=== PATIENT | male | born 1955 | race Caucasian/White ===

== ENCOUNTER → 2017-01-10 10:01 | Outpatient (CLI) | payer MEDICAID | END | disposition home or self-care (01) | LOC: D.CT 10:01 | DX: R93.3 Abnormal findings on diagnostic imaging of other parts of digestive tract (principal) ==

== ENCOUNTER → 2017-04-27 09:34 | Outpatient (CLI) | payer MEDICAID ==
[2017-04-27 10:47] LABS: ALBUMIN 4.2 g/dL (3.4-5.0); BILIRUBIN - DIRECT 0.22 mg/dL (0.00-0.30); BILIRUBIN - INDIRECT 0.6 mg/dL (0.00-1.00); BILIRUBIN - TOTAL 0.82 mg/dL (0.2-1.3); PROTEIN - SERUM 7.2 g/dL (6.4-8.2)
== END | disposition home or self-care (01) ==
LOC: D.US 09:30
PROVIDERS: Internal Medicine Gastroenterology
DX: K76.0 Fatty (change of) liver, not elsewhere classified (principal); R74.8 Abnormal levels of other serum enzymes

== ENCOUNTER → 2017-05-12 08:40 | Outpatient (CLI) | payer MEDICAID ==
[2017-05-12 09:23] LABS: BASOPHILS 0.4 % (0-2); EOSINOPHILS 4.7 % (0-7); HEMATOCRIT 47.7 % (42.0-54.0); HEMOGLOBIN 16.1 g/dL (13.5-17.5); IMMATURE GRANULOCYTES 0.4 % (0-5); LYMPHOCYTES 20.8 % (15-50); MCH 28.8 pg (26.0-34.0); MCHC 33.8 g/dL (31.0-37.0); MCV 85.2 fL (80.0-100.0); MONOCYTES 9.2 % (2-11); NEUTROPHILS 64.5 % (40-80); PLATELET COUNT 201 10x3/uL (130-400); RDW 13.2 % (11.5-14.5); WBC 7.1 10x3/uL (4.8-10.8)
[2017-05-12 09:36] LABS: APTT 31.8 SECONDS (22.8-39.4)
[2017-05-12 09:43] LABS: % SATURATION 48 % (15-55); IRON 141 ug/dl (35-150); TOTAL IRON BIND CAPACITY 293 ug/dl (260-445); UNSAT IRON BIND CAPACITY 152 ug/dl (150-375)
[2017-05-12 09:54] LABS: ALBUMIN 4.2 g/dL (3.4-5.0); ANION GAP 13.3 mmol/L (8-16); BILIRUBIN - DIRECT 0.17 mg/dL (0.00-0.30); BILIRUBIN - INDIRECT 0.91 mg/dL (0.00-1.00); BILIRUBIN - TOTAL 1.08 mg/dL (0.2-1.3); CALCIUM 8.9 mg/dL (8.5-10.1); CARBON DIOXIDE 27.6 mmol/L (21.0-32.0); CREATININE - SERUM 1.1 mg/dL (0.6-1.3); LDL-HDL RATIO 1.4 ratio (1.5-3.5); POTASSIUM - SERUM 3.9 mmol/L (3.5-5.1); PROTEIN - SERUM 7.6 g/dL (6.4-8.2)
[2017-05-12 10:08] LABS: INR 1.15 (0.85-1.17); PROTIME 14.2 SECONDS (11.6-15.0)
[2017-05-13 05:16] LABS: ALPHA FETOPROTEIN -(TUMOR MRK) 4.5 ng/mL (0.0-8.3)
[2017-05-13 07:22] LABS: FOLATE (FOLIC ACID) - SERUM >20.0 ng/mL (>3.0)
[2017-05-13 12:11] LABS: HEPATITIS C ANTIBODY <0.1 (0.0-0.9)
[2017-05-14 13:08] LABS: HAPTOGLOBIN 165 mg/dL (34-200)
[2017-05-15 15:20] LABS: MITOCHONDRIAL ANTIBODY 4.2 Units (0.0-20.0); SMOOTH MUSCLE ABS (ACTIN) 7 Units (0-19)
[2017-05-16 07:23] LABS: ANA REFLEX - DIRECT Negative (Negative)
== END | disposition home or self-care (01) ==
LOC: D.LAB 08:40
PROVIDERS: Internal Medicine Gastroenterology
DX: R74.8 Abnormal levels of other serum enzymes (principal); K76.0 Fatty (change of) liver, not elsewhere classified; R12 Heartburn

== ENCOUNTER → 2017-10-25 08:11 | Outpatient (CLI) | payer MEDICAID ==
[2017-10-25 08:42] LABS: BILIRUBIN - DIRECT 0.2 mg/dL (0.00-0.30); BILIRUBIN - INDIRECT 0.63 mg/dL (0.00-1.00); BILIRUBIN - TOTAL 0.83 mg/dL (0.2-1.3); PROTEIN - SERUM 7.8 g/dL (6.4-8.2)
== END | disposition home or self-care (01) ==
LOC: D.US 08:11
PROVIDERS: Internal Medicine Gastroenterology
DX: K76.0 Fatty (change of) liver, not elsewhere classified (principal); R94.5 Abnormal results of liver function studies

== ENCOUNTER → 2018-04-27 09:28 | Outpatient (CLI) | payer MEDICARE, OTHER ==
[2018-05-10 12:56] LABS: ALBUMIN 4.1 g/dL (3.4-5.0); BILIRUBIN - DIRECT 0.29 mg/dL (0.00-0.30); BILIRUBIN - INDIRECT 0.8 mg/dL (0.00-1.00); BILIRUBIN - TOTAL 1.09 mg/dL (0.2-1.3); PROTEIN - SERUM 7.6 g/dL (6.4-8.2)
== END | disposition home or self-care (01) ==
LOC: D.US 09:28
PROVIDERS: Internal Medicine Gastroenterology
DX: K76.0 Fatty (change of) liver, not elsewhere classified (principal)

== ENCOUNTER 2018-10-03 16:06 | Observation (INO) | payer MEDICARE, OTHER ==
[~2018-10-03] VITALS: Ht 190.5 cm; Wt 93.2 kg
--- NOTE | ~2018-10-03 | HEMODYNAMI ---
PATIENT:QUIRINO LOPEZ MEDICAL RECORD: [id number] : 51 LOCATION:[facility] D.2115 ADMISSION DATE: 10/03/18 Generatedon:10/04/201812:58 Patient name: QUIRINO LOPEZ Patient #: [id number] SSN: : 1955 Date of study: 10/04/2018 Page: Of Hemodynamic Procedure Report Patient Data Patient Demographics Procedure consent was obtained First Name: QUIRINO Gender: Male Last Name: JESSICA : 1955 Middle Initial: ARSENIO Age: 63 year(s) Patient #: [id number] Race: Unknown Additional ID: [id number] Contact details Address: [address] [place] [address] State: [place] City: [place] Zip code: [address] Past Medical History Allergies Allergen Reaction Date Comments Reported Other allergy 10/04/2018 MONAE DANIELS Admission Admission Data Admission Date: 10/03/2018 Admission Time: 18:21 Room #: .[facility]5 Height (in.): 75 BSA: 2.22 (m2) Height (cm.): 190.5 BMI: 25.63 (kg/m2) Weight (lbs.): 205.03 Weight (kg.): 93 Lab Results Lab Result Date: 10/04/2018 Lab Result Time: 0:00 Biochemistry Name Units Result Min Max BUN mg/dl 23 --(----)-* 7 18 Creatinine mg/dl 1 --(--*-)-- 0.6 1.3 eGFR ml/min 79.47418 *-(----)-- 90 120 NONAFRICAN CBC Name Units Result Min Max Hematocrit % 46.8 --(-*--)-- 42 54 Hemoglobin g/dl 16.1 --(--*-)-- 13.5 17.5 Procedure Procedure Types Cath Procedure Diagnostic Procedure LHC LHC w/Coronaries Procedure Description Procedure Date Procedure Date: 10/04/2018 Procedure Start Time: 12:42 Procedure End Time: 12:56 Procedure Staff Name Function Juan Stein MD Performing Physician Shiloh Pedraza RT Monitor Jonny Wylie RT Scrub Sanjana Sidhu RT Scrub Emma Rivas RN Nurse Procedure Data Cath Procedure Fluoroscopy Diagnostic fluoroscopy Total fluoroscopy Time: 3.2 time: 3.2 min min Diagnostic fluoroscopy Total fluoroscopy dose: 605 dose: 605 mGy mGy Contrast Material Contrast Material Type Amount (ml) Isovue 300 81 Entry Location Entry Primary Successful Side Size Upsize Upsize Entry Closure Succes sful Closure Location (Fr) 1 (Fr) 2 (Fr) Remarks Device Remarks Femoral Right 5 Fr Exoseal artery Estimated blood loss: 5 ml Diagnostic catheters Device Type Used For End Catheter Placement MULTIPACK Pigtail 5 Fr Procedure catheter MULTIPACK JL 4.0 5Fr Procedure catheter DIAGNOSTIC JL 6 5Fr Procedure catheter ([id number]) MULTIPACK 3DRC 5Fr Procedure catheter DIAGNOSTIC AR2 MOD 5 Fr Procedure catheter ([id number]) DIAGNOSTIC AL2 5Fr Procedure catheter ([id number]) Procedure Complications No complications Procedure Medications Medication Administration Route Dosage 0.9% NaCl I.V. 100 ml/hr Oxygen etCO2 Nasal cannula 2 l/min Lidocaine 2% added to field 20 Heparin Flush Bag added to field 2 bags (1000units/500ml NS) Versed I.V. 2 mg Fentanyl I.V. 50 mcg Hemodynamics Rest BSA: 2.22 (m2) O2 Consumption: Estimated: 249.84 (ml/min) O2 Consumption indexed : Estimated:112.54 (ml/min/m) Heart Rate: 59 (bpm) Snapshots Pre Cath Intra NCS Post Cath Vital Signs Time Heart Resp SPO2 etCO2 NIBP (mmHg) Rhythm Pain Sedation Rate (ipm) (%) (mmHg) Status Level (bpm) 12:26:18 56 19 97 0 148/58(110) SB 0 (11) 10(A) , No pain 12:30:40 59 20 97 0 136/62(107) SB 0 (11) 10(A) , No pain 12:34:58 60 15 96 0 137/63(106) NSR 0 (11) 10(A) , No pain 12:39:19 57 15 98 11.2 148/61(116) SB 0 (11) 10(A) , No pain 12:43:41 60 11 97 8.9 160/67(115) NSR 0 (11) 10(A) , No pain 12:48:09 62 14 98 12.7 150/64(100) NSR 0 (11) 10(A) , No pain 12:52:31 61 13 97 21.7 144/63(109) NSR 0 (11) 10(A) , No pain 12:56:56 61 12 95 32.2 151/59(117) NSR 0 (11) 10(A) , No pain Medications Time Medication Route Dose Verified Delivered Reason Notes Eff ectiveness by by 12:41:49 Versed I.V. 2 mg Juan Emma for Emil Rivas sedation RN 12:41:58 Fentanyl I.V. 50 Juan Emma for mcg Emil Rivas sedation RN 12:44:14 0.9% NaCl I.V. 100 Juan Emma used for ml/hr Emil Rivas loader technician 12:44:21 Oxygen etCO2 2 Juan Emma used for Nasal l/min Emil Rivas procedure cannula RN 12:44:26 Lidocaine 2% added 20ml Juan Juan for local to vial Emil Stein MD anesthetic field 12:44:32 Heparin Flush added 2 Juan Juan used for Bag to bags Emil Stein MD procedure (1000units/500ml field NS) Procedure Log Time Note 12:08:27 Signed procedure consent form obtained from patient. 12:08:29 Diagnostic Cath status Urgent 12:08:30 Time tracking: Regular hours (M-F 7:00 - 5:00) 12:08:34 Plan of Care:Hemodynamics will remain stable., Cardiac rhythm will remain stable., Comfort level will be maintained., Respiratory function will remain adequate., Patient/ family verbilizes understanding of procedure., Procedure tolerated without complication., Recovers from procedure without complications.. 12:08:59 Patient allergic to Other allergyASACOL, TRICOR 12:09:49 Jonny PHELAN(R) sent for patient. Start room use. 12:10:58 Patient Weight : 205.03 lbs 12:11:01 Patient Height : 75 inches 12:12:39 Lab Result : BUN 23 mg/dl 12:12:39 Lab Result : eGFR NONAFRICAN 79.58146 ml/min 12:12:39 Lab Result : Creatinine 1 mg/dl 12:12:39 Lab Result : Hematocrit 46.8 % 12:12:39 Lab Result : Hemoglobin 16.1 g/dl 12:18:29 Patient received from Med II to CCL 1 Alert and oriented. Tansferred to table in Supine position. 12:18:30 Warm blankets applied, and irma hugger turned on for patient comfort. 12:18:31 Correct patient and procedure confirmed by team. 12:18:32 ECG and BP/O2 sat monitors applied to patient. 12:25:04 Vital chart was started 12:32:57 Baseline sample Acquired. 12:33:04 Rhythm: sinus rhythm 12:33:05 Full Disclosure recording started 12:33:06 Pre-procedure instructions explained to patient. 12:33:07 Pre-op teaching completed and patient verbalized understanding. 12:33:09 Family in patients room. 12:33:11 Patient NPO since Midnight. 12:33:13 Is patient on blood thinner?No 12:33:15 Patient diabetic? No. 12:33:18 Previous problem with sedation/anesthesia? No ? 12:33:19 Snore? No 12:33:41 Sleep apnea? No 12:33:43 Deviated septum? No 12:33:44 Opens mouth fully? Yes 12:33:45 Sticks out tongue? Yes 12:33:47 Airway obstruction? No ? 12:33:51 Dentures? Yes OUT 12:33:55 Pre procedure: right dorsailis pedis pulse 3+ Increased pulse; moderate pressure to obliterate 12:34:49 Patient pain scale 0/10 ?. 12:35:05 IV patent on arrival in left hand with 0.9% NaCl at O. 12:35:08 Lab results completed and on chart. 12:35:11 Right groin area was prepped with chlora-prep and draped in sterile fashion 12:35:12 Alarms reviewed by R. N. 12:35:13 Sharps counted by scrub and verified by R.N. 12:40:03 --------ALL STOP TIME OUT------ 12:40:04 Final Timeout: patient, procedure, and site verified with staff and physician. All members of the team are in agreement. 12:40:05 Right groin site verified by team. 12:40:08 Fire Safety Assessment: A--An alcohol-based skin anteseptic being used preoperatively., C--Open oxygen or nitrous oxide is being used., D--An ESU, laser, or fiber-optic light is being used. 12:40:11 Physical assessment completed. ASA score P 2 - A patient with mild systemic disease as per Juan Stein MD. 12:40:15 2) 60-89 Mildly reduced kidney function, and other findings (as for stage 1) point to kidney disease. 12:40:19 Maximum allowable contrast does (3.7 X eGFR X 0.75)219 ml. 12:40:25 Sedation plan: IV Moderate Sedation Medication:Versed, Fentanyl 12:40:36 Zero performed for pressure channel P1 12:41:49 Versed 2 mg I.V. was administered by Emma Rivas RN; for sedation; 12:41:55 Procedure started. 12:41:58 Fentanyl 50 mcg I.V. was administered by Emma Rivas RN; for sedation; 12:42:18 Local anesthetic to right femoral artery with Lidocaine 2% by Juan Stein MD.INITIAL ACCESS ONLY 12:42:43 Use device set Femoral Dx 12:42:46 ACIST Syringe (96696) opened to sterile field. 12:42:46 Bag Decanter () opened to sterile field. 12:42:47 ACIST Hand Control (47297) opened to sterile field. 12:42:48 ACIST Manifold (35170) opened to sterile field. 12:42:49 Tegaderm 4 x 4 (1626W) opened to sterile field. 12:42:50 Medline Cath Pack ([id number]) opened to sterile field. 12:42:51 DIAGNOSTIC Multipack 5Fr catheter set ([id number]) opened to sterile field. 12:42:52 SHEATH 5FR Perris (RRG234) opened to sterile field. 12:42:53 EMERALD Guide Wire (397-854) opened to sterile field. 12:43:04 A 5 Fr sheath was inserted into the Right Femoral artery 12:43:29 A MULTIPACK Pigtail 5 Fr catheter was advanced over the wire and used for Procedure. 12:43:46 LV gram done using CODY 12:43:48 Injector settings: Ml/sec: 10, Volume: 20, 12:43:56 EF : 35 % 12:43:59 Catheter removed. 12:44:14 0.9% NaCl 100 ml/hr I.V. was administered by Emma Rivas RN; used for procedure; 12:44:18 A MULTIPACK JL 4.0 5Fr catheter was advanced over the wire and used for Procedure. 12:44:21 Oxygen 2 l/min etCO2 Nasal cannula was administered by Emma Rivas RN; used for procedure; 12:44:26 Lidocaine 2% 20ml vial added to field was administered by Juan Stein MD; for local anesthetic; 12:44:32 Heparin Flush Bag (1000units/500ml NS) 2 bags added to field was administered by Juan Stein MD; used for procedure; 12:44:35 Catheter removed. 12:44:43 UNABLE TO ENGAGE LCA 12:44:55 A DIAGNOSTIC JL 6 5Fr catheter ([id number]) was advanced over the wire and used for Procedure. 12:46:24 LCA angiography performed. 12:47:00 Catheter removed. 12:47:07 A MULTIPACK 3DRC 5Fr catheter was advanced over the wire and used for Procedure. 12:48:58 Catheter removed. 12:49:15 UNABLE TO ENGAGE RCA 12:49:26 A DIAGNOSTIC AR2 MOD 5 Fr catheter ([id number]) was advanced over the wire and used for Procedure. 12:51:33 Catheter removed. 12:51:44 A DIAGNOSTIC AL2 5Fr catheter (663127M) was advanced over the wire and used for Procedure. 12:52:26 RCA angiography performed. 12:52:27 Catheter removed. 12:52:38 EXOSEAL 5Fr (EX500) opened to sterile field. 12:53:11 Sheath removed intact; hemostasis achieved with Exoseal to the Right Femoral artery. 12:53:14 Procedure ended.(Physican Out) 12:54:10 Fluoroscopy time 03.20 minutes. 12:54:13 Fluoroscopy dose: 605 mGy 12:54:13 Flurop Dose total: 605 12:54:17 Contrast amount:Isovue 300 81ml. 12:54:19 Sharps counted by scrub and verified by R.N. 12:54:25 Post-op/insertion site Right Femoral artery dressed using a 4 x 4 and Tegaderm. 12:54:33 Post-procedure physical assessment completed. ASA score P 2 - A patient with mild systemic disease as per Juan Stein MD. 12:54:36 Post procedure rhythm: sinus bradycardia 12:54:43 Estimated blood loss: 5 ml 12:54:46 Post procedure instruction explained to patient.Patient verbalizes understanding. 12:54:46 Patient needs reinforcement of post procedure teaching. 12:55:47 Procedure and supply charges have been captured, reviewed, submitted and are correct. 12:55:50 Procedure Complication : No complications 12:55:54 Vital chart was stopped 12:56:21 See physician's report for complete and final results. 12:56:48 Report given to Pre/Post Procedure Room. 12:56:51 Patient transfered to Pre/Post Procedure Room with Bed. 12:56:52 Procedure ended. 12:56:52 Full Disclosure recording stopped 12:56:56 End room use (Document Last) Device Usage Item Name Manufacture Quantity Catalog Hospital Part Current Minimal L ot# / Number Charge Number Stock Stock Serial# Code ACIST Acist 1 72936 447808 719284 453625 20 Syringe Medical (59147) Systems Inc Bag Microtek 1 2001S 680957 23371 683457 5 Decanter Medical Inc. () ACIST Hand Acist 1 23653 431327 094575 211194 5 Control Medical (94984) Systems Inc ACIST Acist 1 35871 854613 377191 519533 5 Manifold Medical (63928) Systems Inc Tegaderm 4 3M 1 1626W 495743 230856 551616 5 x 4 (1626W) Medline Medline 1 [id number] 114022 43749 619423 5 Cath Pack ([id number]) DIAGNOSTIC Cardinal 1 AG6626 575959 15183 876739 30 Multipack Ciespace 5Fr catheter set (MQ4039) SHEATH 5FR Terumo 1 SBR401 089273 265363 221024 5 Perris (OHC751) EMERALD Cardinal 1 502455 825122 640754 761982 5 Guide Wire Health (502-493) MULTIPACK Cardinal 1 251768 5 Pigtail 5 Health Fr catheter MULTIPACK Cardinal 1 587935 5 JL 4.0 5Fr Health catheter DIAGNOSTIC Cardinal 1 569923W 808267 522244 558043 5 JL 6 5Fr Health catheter (330037T) MULTIPACK Cardinal 1 807395 5 3DRC 5Fr Health catheter DIAGNOSTIC Cardinal 1 [id number] 912902 946039 867109 20 AR2 MOD 5 Health Fr catheter (178116P) DIAGNOSTIC Cardinal 1 [id number] 907366 417492 092345 15 AL2 5Fr Health catheter (285297W) EXOSEAL 5Fr Cardinal 1 EX500 842122 821848 172587 10 (EX500) Health Signature Audit [place] Stage Time Signature Unsigned Intra-Procedure 10/04/2018 Shiloh Pedraza 12:58:46 PM RT(R) Signatures Monitor : Shiloh Pedraza Signature : RT Date : Time : [address] [address]
--- NOTE | ~2018-10-03 | CN ---
PATIENT NAME:QUIRINO LOPEZ MEDICAL RECORD: [id number] : 51 LOCATION:D. D.2115 ADMIT DATE: 10/03/18 ACCOUNT: [id number] CONSULTING PHYSICIAN: FRANCISCO ALBA MD REFERRING PHYSICIAN: FRANCISCO ALBA MD DATE OF CONSULTATION: 10/03/2018 DIAGNOSES: 1. Paroxysmal atrial fibrillation. 2. Hypertension. HISTORY OF PRESENT ILLNESS: This is a gentleman who has no history of dysrhythmia. He has felt palpitations and noted great fluctuation in his blood pressure. He has had no chest pain or chest discomfort. No shortness of breath. He is on lisinopril 20 mg and hydrochlorothiazide. He is not on any AV blocking medications. With the atrial fibrillation, his heart rate goes up to 130s to 150 range and then he converts back to sinus rhythm in the 80s and 90s. He can feel the palpitations and the atrial fibrillation. He has a fatty liver problem and has been told to use no anticoagulants secondary to this. PHYSICAL EXAMINATION: GENERAL APPEARANCE: Well-nourished, well-developed, appears stated age. Level of distress, comfortable. PSYCHIATRIC: Mental status, alert, normal affect. Orientation, oriented to time, place and person. EYES: Lids and conjunctiva, noninjected. No discharge, no pallor. ENT: Lips, teeth, gums, normal dentition. Oropharynx, no cyanosis, no pallor. NECK: Carotid arteries, bilateral normal upstroke, no bruits, no thrills. JUGULAR VEINS: No jugular venous pressure or distention. CERVICAL LYMPH NODES: Nontender, nonenlarged. THYROID: Not enlarged. Nontender. No nodules. LUNGS: Respiratory effort, unlabored. CHEST: Normal curvature. No thoracic deformity. No chest wall tenderness. Percussion, resonant. Auscultation, clear. No wheezes, no rales, no rhonchi. CARDIOVASCULAR: Precordial exam, nondisplaced. No heaves or pericardial thrills. Rate and rhythm, regular. Heart sounds, normal S1, normal S2. No S3, no gallop, no rub. Systolic murmur, not heard. Diastolic murmur, not heard. EXTREMITIES: No cyanosis, no edema. Peripheral pulses, full and equal in all extremities, except as noted. No bruits appreciated. ABDOMEN: Soft, nondistended. Normal aorta. No bruit. Nontender. No masses. Liver, nontender, no hepatomegaly. Spleen, nontender, no splenomegaly. MUSCULOSKELETAL: No joint tenderness. No joint swelling. No erythema. NEUROLOGICAL: Normal gait, normal strength, normal tone. SKIN: Warm and dry. OVERALL IMPRESSION: Paroxysmal atrial fibrillation. At this time, we will start him on sotalol 80 mg b.i.d., giving him one dose of 120 mg here in the Emergency Room. We will follow up tomorrow at 1:00 p.m. with Cassy as a follow-up. He will start the 80 mg sotalol tomorrow morning. TRANSINT:[id number] Voice Confirmation ID: [id number] DOCUMENT ID: [id number] CONSULT REPORT [id number] QUIRINO LOPEZ JEFFREY MD CC: [id number] DICTATION DATE: 10/03/181723 EDUCATION DEPARTMENT REGISTRAR: 10/03/18 192 ADM IN [place] [address] [place] [address]
--- NOTE | ~2018-10-03 | OP ---
PATIENT NAME: QUIRINO LOPEZ MEDICAL RECORD: [id number] :51 LOCATION:[facility] ADMISSION DATE:10/03/18 SURGEON: FRANCISCO ALBA MD DATE OF OPERATION: 10/04/2018 PROCEDURES: 1. Left heart catheterization. 2. Selective coronary angiography. 3. Left ventriculogram. PROCEDURE IN DETAIL: After informed consent was obtained and after a detailed explanation of the risks, benefits as well as alternative therapies, the patient elected to proceed with angiogram and heart catheterization. The right femoral area was prepped and draped in normal sterile fashion. Right femoral artery was cannulated via modified Seldinger technique with placement of 5-Malawian sheath. All catheters exchanged through this sheath. FINDINGS: Left ventriculogram was performed in the standard 30-degree CODY view, reveals global hypokinesis throughout all segments. Overall ejection fraction in the 30% to 35% range. SELECTIVE CORONARY ANGIOGRAPHY: 1. Left main is with no significant angiographic disease. 2. Left anterior descending has moderate irregularities, but no flow-limiting stenosis. No stenosis greater than 20%. 3. Left circumflex has moderate irregularities, but no flow-limiting stenosis. None greater than 30%. 4. Right coronary has no significant angiographic disease. OVERALL IMPRESSION: Cardiomyopathy, but minimal coronary artery disease is present. Center medical management on treatment of the cardiomyopathy. TRANSINT:[id number] Voice Confirmation ID: [id number] DOCUMENT ID: [id number] FRANCISCO ALBA MD CC: [id number] DICTATION DATE: 10/04/18 1257 CORPORATE BANKING OFFICER: 10/04/18 1316 ADM IN [place] [address] [place] [address]
--- NOTE | ~2018-10-03 | EC ---
PATIENT:QUIRINO LOPEZ DATE OF SERVICE: 10/03/18 SEX: M MEDICAL RECORD: [id number] DATE OF : [birth year] [facility] AGE OF PATIENT: 63 ADMISSION DATE: 10/03/18 REFERRING PHYSICIAN: INTERPRETING PHYSICIAN: FRANCISCO STEIN MD ECHOCARDIOGRAM REPORT ECHO CHARGES 4 ECHO COMPLETE Date: 10/04/18 CLINICAL DIAGNOSIS: DILATED CARDIOMYOPATHY ECHOCARDIOGRAPHIC MEASUREMENTS (adult normal given) AC root (d.<3.7cm) 3.5 cm LV Septum d (<1.2 cm> 1.6 cm Valve Excursion 1.6 cm LV Septum (systole) 1.9 cm Left Atria (s.<4.0cm> 3.6 cm LVPW d(<1.2cm) 1.6 cm RV (d.<2.3cm) 3.3 cm LVPW (sytole) 2.3 cm LV diastole(<5.6CM) 6.8 cm MV E-F(>70mm/sec) cm LV systole 4.8 cm LVOT Diameter 1.8 cm MV exc.(>10mm) 1.7 cm Est.ejection fraction (50-75%) % DOPPLER: LVIT cm/sec A 104 cm/sec E 93.0 cm/sec LA cm/sec RVSP 20 mmHg LVOT 140 cm/sec AOP1/2T 410 m/s Asc. Ao 159 cm/sec RVOT 60 cm/sec RA cm/sec PA 86 cm/sec AV Gradient Peak 10.17mmHg AV Mean 5.32 mmHg AV Area 2.0 cm MV Gradient Peak 6.63 mmHg MV Mean 2.63 mmHg MV Area cm COMMENTS: Sausage Canner: Adalid VERDUZCO Rn Hemodialysis Charge: 1 Dr. Stein TAPE# PACS Pericardial Effusion N DATE OF SERVICE: 10/04/2018 FINDINGS: 1. Left ventricular chamber size is dilated. Left ventricular systolic function is mildly reduced. Overall ejection fraction in the 40% range. 2. Left atrium is within normal limits at 3.6 cm. Right atrium and right ventricular chamber sizes are as well mildly dilated. 3. Valvular structures have normal structure and motion. 4. Doppler interrogation reveals mild aortic insufficiency, mild mitral regurgitation, and trace tricuspid regurgitation. No other valvular ECHOCARDIOGRAM REPORT [id number] QUIRINO LOPEZ insufficiency or stenosis. Pulmonary systolic pressure is estimated at 20 mmHg. 5. No evidence of pericardial effusion or left ventricular thrombus. TRANSINT:[id number] Voice Confirmation ID: [id number] DOCUMENT ID: [id number] FRANCISCO STEIN MD CC: [id number] DICTATION DATE: 10/04/18 154 PATIENT COORDINATOR: 10/04/18 1600 DIS IN 10/04/18 [facility] [address] [id number]
--- NOTE | ~2018-10-03 | DS ---
PATIENT:QUIRINO BURKS :51 MEDICAL RECORD: [id number] DISCHARGE SUMMARY ADMISSION DATE: 10/03/18 DISCHARGE DATE: 10/04/18 DATE OF DISCHARGE: 10/04/2018 DIAGNOSES: 1. Cardiomyopathy. 2. Paroxysmal atrial fibrillation. 3. Coronary artery disease. 4. Non-Q-wave myocardial infarction. HOSPITAL COURSE: Mr. Burks presents with atrial fibrillation and elevated troponin compatible with non-Q-wave myocardial infarction; however, cardiac catheterization revealed minimal coronary artery disease, but a cardiomyopathy, ejection fraction in the 30% to 35% range. He was discharged home with the addition of sotalol to his medical regimen. He is already on losartan. Will follow up with [facility] in 1 month. TRANSINT:[id number] Voice Confirmation ID: [id number] DOCUMENT ID: [id number] FRANCISCO ALBA MD CC: [id number] DICTATION DATE: 10/04/18 1255 DISTRICT ADMINISTRATIVE ASSISTANT: 10/04/18 2350 DIS IN 10/04/18 [place] [address] [place] [id number]
--- NOTE | ~2018-10-03 | HP ---
PATIENT: QUIRINO LOPEZ MEDICAL RECORD: [id number] ACCOUNT: [id number] LOCATION:[address] : 51 ADMISSION DATE: 10/03/18 PCP: CONNIE BARRON HISTORY AND PHYSICAL EXAMINATION DIAGNOSES: 1. Non-Q-wave myocardial infarction. 2. Paroxysmal atrial fibrillation. 3. Hypertension. HISTORY OF PRESENT ILLNESS: This is a gentleman who we saw in the Emergency Room yesterday. Initially did a cardiology consult on, we were to set him out of the Emergency Room; however, his troponin came back positive for non-Q-wave myocardial infarction. He has no history of dysrhythmia. He noted palpitations and great fluctuation in his blood pressure. No real chest pain or chest discomfort; however, he was noted to be in and out of atrial fibrillation. He was not on any AV blocking medications. His troponins have continued to be positive. His atrial fibrillation has been converted to sinus rhythm with sotalol. He supposedly has a problem with a fatty liver and has been told to not use anticoagulants in the past secondary to this. PHYSICAL EXAMINATION: GENERAL APPEARANCE: Well-nourished, well-developed, appears stated age. Level of distress, comfortable. PSYCHIATRIC: Mental status, alert, normal affect. Orientation, oriented to time, place and person. EYES: Lids and conjunctiva, noninjected. No discharge, no pallor. ENT: Lips, teeth, gums, normal dentition. Oropharynx, no cyanosis, no pallor. NECK: Carotid arteries, bilateral normal upstroke, no bruits, no thrills. JUGULAR VEINS: No jugular venous pressure or distention. CERVICAL LYMPH NODES: Nontender, nonenlarged. THYROID: Not enlarged. Nontender. No nodules. LUNGS: Respiratory effort, unlabored. CHEST: Normal curvature. No thoracic deformity. No chest wall tenderness. Percussion, resonant. Auscultation, clear. No wheezes, no rales, no rhonchi. CARDIOVASCULAR: Precordial exam, nondisplaced. No heaves or pericardial thrills. Rate and rhythm, regular. Heart sounds, normal S1, normal S2. No S3, no gallop, no rub. Systolic murmur, not heard. Diastolic murmur, not heard. EXTREMITIES: No cyanosis, no edema. Peripheral pulses, full and equal in all extremities, except as noted. No bruits appreciated. ABDOMEN: Soft, nondistended. Normal aorta. No bruit. Nontender. No masses. Liver, nontender, no hepatomegaly. Spleen, nontender, no splenomegaly. MUSCULOSKELETAL: No joint tenderness. No joint swelling. No erythema. NEUROLOGICAL: Normal gait, normal strength, normal tone. SKIN: Warm and dry. OVERALL IMPRESSION: Non-Q-wave myocardial infarction with increased atrial fibrillation, most likely he does have hemodynamically significant coronary artery disease. We will proceed with coronary angiography. Further care depends upon the findings of the angiography. TRANSINT:[id number] Voice Confirmation ID: [id number] DOCUMENT ID: [id number] HISTORY AND PHYSICAL [id number] QUIRINO LOPEZ JEFFREY MD CC: [id number] DICTATION DATE: 10/04/18822 RECREATION THERAPY TEACHER: 10/04/18834 ADM IN [facility] [address] [id number]
[2018-10-03] MEDS ORDERED: HYDROCHLOROTHIA25 MG PO (16:21)
[2018-10-03] MEDS ORDERED: ZYLOPRIM300 MG PO (16:21)
[2018-10-03] MEDS ORDERED: LISINOPRIL20 MG PO (16:21)
[2018-10-03] MEDS ORDERED: NEXIUM40 MG PO (16:22)
[2018-10-03] MEDS ORDERED: FISH OIL 1,0001 CA1 PO (16:22)
[2018-10-03] MEDS ORDERED: CLARITIN 10 MG10 MG PO (16:22)
[2018-10-03 16:49] LABS: BASOPHILS 0.4 % (0-2); EOSINOPHILS 3.5 % (0-7); HEMATOCRIT 48.8 % (42.0-54.0); HEMOGLOBIN 16.7 g/dL (13.5-17.5); IMMATURE GRANULOCYTES 0.3 % (0-5); LYMPHOCYTES 20.4 % (15-50); MCH 28.4 pg (26.0-34.0); MCHC 34.2 g/dL (31.0-37.0); MCV 82.9 fL (80.0-100.0); MEAN PLATELET VOLUME 10.4 fL (7.4-10.4); MONOCYTES 8.1 % (2-11); NEUTROPHILS 67.3 % (40-80); PLATELET COUNT 191 10x3/uL (130-400); RBC 5.89 10x6/uL (4.20-6.10); RDW 13.8 % (11.5-14.5); WBC 9.3 10x3/uL (4.8-10.8)
[2018-10-03 17:06] LABS: ALBUMIN 4.1 g/dL (3.4-5.0); ALKALINE PHOSPHATASE 49 U/L (46-116); ALT (SGPT) 53 U/L (10-68); BILIRUBIN - TOTAL 0.92 mg/dL (0.2-1.3); CALC OSMOLALITY 286 mosm/kg (275-300); CALCIUM 9.1 mg/dL (8.5-10.1); CARBON DIOXIDE 23.6 mmol/L (21.0-32.0); CHLORIDE - SERUM 106 mmol/L (98-107); CREATININE - SERUM 0.9 mg/dL (0.6-1.3); GLUCOSE 95 mg/dL (74-106); PROTEIN - SERUM 7.9 g/dL (6.4-8.2); SODIUM 143 mmol/L (136-145); UREA NITROGEN 17 mg/dL (7-18); eGFR NON AFRICAN AMERICAN 90 mL/min (90-120)
[2018-10-03 17:16] LABS: APTT 32.7 SECONDS (22.8-39.4); INR 1.18 (0.85-1.17); PROTIME 14.5 SECONDS (11.6-15.0)
[2018-10-03 17:24] LABS: CKMB 0.5 U/L (0.0-3.6); CREATINE KINASE 70 UL (21-232); MAGNESIUM - SERUM 1.9 mg/dL (1.8-2.4)
[2018-10-03 17:40] LABS: TROPONIN-I 0.525 ng/mL (0.000-0.060)
[2018-10-03] MEDS ORDERED: ZOCOR20 MG PO (19:59)
[2018-10-03 20:00] VITALS: BP 129/48
--- NOTE | 2018-10-03 20:00 | NUR ---
PT ARRIVED TO ROOM 2114 PT IS AAO, HARD OF HEARING AND WEARS HEARING AIDS. PT HAS A 20G PIV LEFT HAND. PT BED LOW AND CALL LIGHT IN REACH. MED REC PHARM AND HISTORY COMPLETE. PT VERBALIZED UNDERSTANDING OF NPO AFTER MIDNIGHT FOR HEART CATH IN AM. DENIES ANY OTHER NEEDS AT THIS TIME. WILL CPOC
--- NOTE | 2018-10-03 21:58 | NUR ---
TUMS GIVEN ORDERED. PT SITTING AT BED SIDE. SON STOPPED BY AND LEFT NUMBER SON'S NAME IS [id number]
--- NOTE | 2018-10-03 22:51 | NUR ---
PT SITTING IN CHAIR READING A BOOK. DENIES ANY NEEDS. NO S/S OF DISTRESS. WILL CPOC
[2018-10-04] VITALS: BP 121/53
[2018-10-04 00:28] VITALS: BP 129/48; Ht 190.5 cm; Wt 93.2 kg
[2018-10-04 04:00] VITALS: BP 146/53
[2018-10-04 05:57] LABS: BASOPHILS 0.7 % (0-2); EOSINOPHILS 4.6 % (0-7); HEMATOCRIT 46.8 % (42.0-54.0); HEMOGLOBIN 16.1 g/dL (13.5-17.5); IMMATURE GRANULOCYTES 0.8 % (0-5); LYMPHOCYTES 24.3 % (15-50); MCH 28.8 pg (26.0-34.0); MCHC 34.4 g/dL (31.0-37.0); MCV 83.6 fL (80.0-100.0); MEAN PLATELET VOLUME 11.1 fL (7.4-10.4); NEUTROPHILS 58.6 % (40-80); PLATELET COUNT 194 10x3/uL (130-400); RDW 14.1 % (11.5-14.5); WBC 8.4 10x3/uL (4.8-10.8)
[2018-10-04 06:45] LABS: CALC OSMOLALITY 285 mosm/kg (275-300); CALCIUM 8.6 mg/dL (8.5-10.1); CARBON DIOXIDE 26.8 mmol/L (21.0-32.0); CHLORIDE - SERUM 105 mmol/L (98-107); GLUCOSE 109 mg/dL (74-106); POTASSIUM - SERUM 3.7 mmol/L (3.5-5.1); SODIUM 141 mmol/L (136-145); UREA NITROGEN 23 mg/dL (7-18); eGFR NON AFRICAN AMERICAN 80 mL/min (90-120)
[2018-10-04 09:43] VITALS: BP 126/50
--- NOTE | 2018-10-04 12:14 | NUR ---
PRE-OPS GIVEN. TO CHIMNEY CONSTRUCTION SUPERVISOR BY BED.
--- NOTE | 2018-10-04 13:35 | NUR ---
DRESSING CDI TO RIGHT GROIN, AREA IS SOFT AND NONTENDER. PEDAL PULSES PALPABLE. SINUS JOSI AT 54, DENIES ANY C/O CHEST PAIN. BP IS 125/48. HOB IS FLAT, AT BEDSIDE.
[2018-10-04] MEDS ORDERED: BETAPACE 80 MG80 MG PO (13:40)
--- NOTE | 2018-10-04 14:00 | NUR ---
PT SLEEPING INTERMITTENTLY, AWAKENS EASILY. DRESSING CDI TO RIGHT GROIN, AREA IS SOFT AND NONTENDER. PEDAL PULSES PALPABLE. HOB IS FLAT. SINUS JOSI AT 53, DENIES ANY C/O CHEST PAIN. FAMILY AT BEDSIDE.
--- NOTE | 2018-10-04 14:27 | NUR ---
DRESSING CDI, PEDAL PULSES 2+, HOB ELEVATED 30 DEGREES, ECHO BEING DONE AT THIS TIME.
--- NOTE | 2018-10-04 14:40 | NUR ---
DRESSING CDI, PEDAL PULSES 2+. HOB FULLY ELEVATED. ECHO COMPLETE. SANDWICH SERVED. PT IS ALERT AND DENIES ANY C/O.
--- NOTE | 2018-10-04 15:27 | NUR ---
1510 PT ALERT, DENIES ANY C/O. DRESSING CDI TO RIGHT GROIN, AREA IS SOFT AND NONTENDER. PEDAL PULSES PALPABLE. PT HAS TOLERATED SANDWICH TRAY AND DENIES ANY C/O. IV DC'D WITH CATH INTACT AND PT IS DRESSING FOR DC TO HOME WITH ASSIST. 1525 DC INSTRUCTIONS HAVE BEEN REVIEWED WITH PT AND WHO VERBALIZE UNDERSTANDING. PT HAS AMBULATED TO THE BATHROOM AND VOIDED QS. IS ALERT AND DENIES ANY C/O. PT ESCORTED TO PRIVATE AUTO VIA WC BY NURSE WITH SON DRIVING HIM HOME.
== END 2018-10-04 15:25 | disposition home or self-care (01) ==
LOC: D.ER 16:06 → D.M2 18:21 → OBSVTIME 18:30 → D.M2 19:55 → D.CLR 10-04 13:10
PROVIDERS: Family Medicine; ADMIT Internal Medicine Interventional Cardiology; ATTEND Internal Medicine Interventional Cardiology
DX: I21.4 Non-ST elevation (NSTEMI) myocardial infarction (principal); I48.0 Paroxysmal atrial fibrillation; I42.9 Cardiomyopathy, unspecified; I10 Essential (primary) hypertension

== ENCOUNTER → 2019-02-28 12:35 | Outpatient (CLI) | payer MEDICARE, OTHER ==
[2018-10-04 00:28] VITALS: BMI 25.6
--- NOTE | 2019-02-11 07:31 | NUR ---
DR. WAN NOTIFIED AND REVIEWED PATIENT'S BEHAVIOR AND ASSESSMENT RESULTS. PATIENT IS A LOW RISK PER DR. WAN. DR. WAN STATED TO GIVE RESOURCES TO PATIENT AT DISCHARGE. NO FURTHER ORDERS AT THIS TIME. RESOURCES REVIEWED WITH PATIENT AND HE VERBALIZES UNDERSTANDING.
--- NOTE | ~2019-02-28 | EC ---
PATIENT:QUIRINO LOPEZ DATE OF SERVICE: 02/28/19 SEX: M MEDICAL RECORD: [id number] DATE OF : 51 [facility] AGE OF PATIENT: 64 ADMISSION DATE: 02/28/19 REFERRING PHYSICIAN: INTERPRETING PHYSICIAN: FRANCISCO STEIN MD ECHOCARDIOGRAM REPORT ECHO CHARGES 4 ECHO COMPLETE Date: 02/28/19 CLINICAL DIAGNOSIS: HX OF CARDIOMYOPATHY/HTN/AFIB/ CAD ASSESS EF AND VALVES ECHOCARDIOGRAPHIC MEASUREMENTS (adult normal given) AC root (d.<3.7cm) 5.6 cm LV Septum d (<1.2 cm> 1.3 cm Valve Excursion 2.3 cm LV Septum (systole) 1.7 cm Left Atria (s.<4.0cm> 4.6 cm LVPW d(<1.2cm) 1.7 cm RV (d.<2.3cm) 3.5 cm LVPW (sytole) 1.9 cm LV diastole(<5.6CM) 8.2 cm MV E-F(>70mm/sec) cm LV systole 6.2 cm LVOT Diameter 2.2 cm MV exc.(>10mm) 1.0 cm Est.ejection fraction (50-75%) % DOPPLER: LVIT cm/sec A 72.0 cm/sec E 84.0 cm/sec LA cm/sec RVSP 49 mmHg LVOT 162 cm/sec AOP1/2T 326 m/s Asc. Ao 194 cm/sec RVOT 59 cm/sec RA cm/sec PA 85 cm/sec AV Gradient Peak 15.05mmHg AV Mean 7.23 mmHg AV Area 3.7 cm MV Gradient Peak 7.24 mmHg MV Mean 2.91 mmHg MV Area cm COMMENTS: Aircraft Ordnance Technician: 2 LUTHER VERDUZCO Rehabilitation Counselor: 1 Dr. Stein TAPE# PACS Pericardial Effusion N DATE OF SERVICE: FINDINGS: 1. Left ventricular chamber size is moderately dilated. Left ventricular systolic function is preserved at 55% to 60%. 2. Left atrium is enlarged at 4.6 cm. Right atrium and right ventricular chamber sizes are as well mildly dilated. 3. Valvular structures have normal structure and motion. 4. Doppler interrogation reveals mild aortic insufficiency, mild mitral regurgitation, mild tricuspid regurgitation, no other valvular insufficiency or ECHOCARDIOGRAM REPORT [id number] QUIRINO LOPEZ stenosis. Pulmonary systolic pressure is elevated, estimated at 49 mmHg. 5. No evidence of pericardial effusion or left ventricular thrombus. TRANSINT:[id number] Voice Confirmation ID: [id number] DOCUMENT ID: [id number] FRANCISCO STEIN MD CC: [id number] DICTATION DATE: 03/01/19 1042 SALES TEAM MANAGER: 03/01/19 1104 DEP CLI 02/28/19 [facility] [address] [place] [id number]
[~2019-02-28 12:35] MED LIST: BETAPACE 80 MG80 MG PO; CLARITIN 10 MG10 MG PO; FISH OIL 1,0001 CA1 PO; HYDROCHLOROTHIA25 MG PO; LISINOPRIL20 MG PO; NEXIUM40 MG PO; ZOCOR20 MG PO; ZYLOPRIM300 MG PO
== END | disposition home or self-care (01) ==
LOC: D.HCCECHO 12:35
PROVIDERS: ATTEND Internal Medicine Interventional Cardiology
DX: I25.10 Atherosclerotic heart disease of native coronary artery without angina pectoris (principal)

== ENCOUNTER 2019-05-27 20:58 | Observation (INO) | payer MEDICARE, OTHER ==
[~2019-05-27] VITALS: Ht 182.9 cm; Wt 90.0 kg
[2019-05-27 21:50] LABS: BASOPHILS 0.9 % (0-2); EOSINOPHILS 6.5 % (0-7); HEMATOCRIT 45.8 % (42.0-54.0); HEMOGLOBIN 15.9 g/dL (13.5-17.5); IMMATURE GRANULOCYTES 0.7 % (0-5); LYMPHOCYTES 27.8 % (15-50); MCH 28.5 pg (26.0-34.0); MCHC 34.7 g/dL (31.0-37.0); MCV 82.1 fL (80.0-100.0); MEAN PLATELET VOLUME 10.5 fL (7.4-10.4); MONOCYTES 9.5 % (2-11); NEUTROPHILS 54.6 % (40-80); PLATELET COUNT 193 10x3/uL (130-400); RBC 5.58 10x6/uL (4.20-6.10); RDW 13.2 % (11.5-14.5); WBC 8.5 10x3/uL (4.8-10.8)
[2019-05-27 21:55] LABS: APTT 32.6 SECONDS (22.8-39.4); INR 1.1 (0.85-1.17); PROTIME 14.1 SECONDS (11.6-15.0)
[2019-05-27 21:56] LABS: CALC OSMOLALITY 290 mosm/kg (275-300); CALCIUM 8.8 mg/dL (8.5-10.1); CARBON DIOXIDE 25.6 mmol/L (21.0-32.0); CHLORIDE - SERUM 106 mmol/L (98-107); CREATININE - SERUM 1.1 mg/dL (0.6-1.3); GLUCOSE 149 mg/dL (74-106); POTASSIUM - SERUM 3.7 mmol/L (3.5-5.1); SODIUM 142 mmol/L (136-145); UREA NITROGEN 27 mg/dL (7-18); eGFR NON AFRICAN AMERICAN 71 mL/min (90-120)
[2019-05-27 22:17] LABS: ALBUMIN 3.8 g/dL (3.4-5.0); ALKALINE PHOSPHATASE 41 U/L (30-120); BILIRUBIN - TOTAL 0.85 mg/dL (0.2-1.3); CKMB 0.5 U/L (0.0-3.6); CREATINE KINASE 87 UL (21-232); MAGNESIUM - SERUM 1.9 mg/dL (1.8-2.4); PROTEIN - SERUM 7.3 g/dL (6.4-8.2)
[2019-05-27 22:19] LABS: ALT (SGPT) 48 U/L (10-68)
[2019-05-27 22:20] LABS: TROPONIN-I 0.082 ng/mL (0.000-0.060)
[2019-05-27 23:59] VITALS: Ht 182.9 cm; Wt 90.0 kg
[2019-05-28 00:55] VITALS: BP 132/56
[2019-05-28 03:42] LABS: EOSINOPHILS 7.2 % (0-7); LYMPHOCYTES 32.3 % (15-50); MCH 28.3 pg (26.0-34.0); MCHC 34.1 g/dL (31.0-37.0); MEAN PLATELET VOLUME 10.1 fL (7.4-10.4); MONOCYTES 10.9 % (2-11); NEUTROPHILS 47.6 % (40-80); RDW 13.4 % (11.5-14.5); WBC 7.2 10x3/uL (4.8-10.8)
[2019-05-28 03:50] LABS: PLATELET COUNT 151 10x3/uL (130-400)
[2019-05-28 04:11] LABS: ALBUMIN 3.5 g/dL (3.4-5.0); ALKALINE PHOSPHATASE 32 U/L (30-120); ALT (SGPT) 40 U/L (10-68); BILIRUBIN - TOTAL 0.63 mg/dL (0.2-1.3); CALC OSMOLALITY 288 mosm/kg (275-300); CALCIUM 8.6 mg/dL (8.5-10.1); CARBON DIOXIDE 28.1 mmol/L (21.0-32.0); CHLORIDE - SERUM 106 mmol/L (98-107); CKMB 0.4 U/L (0.0-3.6); CREATINE KINASE 72 UL (21-232); CREATININE - SERUM 1.2 mg/dL (0.6-1.3); GLUCOSE 115 mg/dL (74-106); POTASSIUM - SERUM 3.8 mmol/L (3.5-5.1); PROTEIN - SERUM 6.7 g/dL (6.4-8.2); SODIUM 142 mmol/L (136-145); UREA NITROGEN 26 mg/dL (7-18); eGFR NON AFRICAN AMERICAN 64 mL/min (90-120)
[2019-05-28 04:14] LABS: TROPONIN-I 0.072 ng/mL (0.000-0.060)
[2019-05-28 04:42] VITALS: BP 128/47
[2019-05-28 09:58] VITALS: BP 135/41
[2019-05-28 10:20] LABS: CKMB 0.4 U/L (0.0-3.6); CREATINE KINASE 65 UL (21-232)
[2019-05-28 10:22] LABS: TROPONIN-I 0.074 ng/mL (0.000-0.060)
[2019-05-28 12:56] VITALS: BP 138/48
[2019-05-28 18:12] LABS: CKMB 0.2 U/L (0.0-3.6); CREATINE KINASE 59 UL (21-232); TROPONIN-I 0.089 ng/mL (0.000-0.060)
[2019-05-28 18:33] VITALS: BP 158/60
--- NOTE | 2019-05-28 19:44 | NUR ---
ASSUMED PT CARE. ALTHOUGH PT READY FOR DC. DC INSTRUCTION READ TO PT. PT VERBALIZED UNDERSTANDING. PIV REMOVED, GAUZE AND TAPE APPLIED. TELE REMOVED AND RETURNED TO COLOR FINISHER. PT WHEELED OUT BY FLOOR BARK GRINDER TO MAIN ENTRANCE. PT DC'D.
--- NOTE | 2019-05-29 08:18 | MORECARE ---
CASE MANAGEMENT DISCHARGE SUMMARY PATIENT: QUIRINO LOPEZ UNIT: [id number] ADM DATE: 05/27/19 AGE: 64 : 53 SEX: M ROOM/BED: D.2106 AUTHOR: FRANK PAGAN PHYSICIAN: REFERRING PHYSICIAN: CYNDI CASE MD DATE OF SERVICE: 05/29/19 Discharge Plan Patient Name: QUIRINO LOPEZ [facility] : 1955 Planned Disposition: Home Anticipated Discharge Date: 05/28/19 Discharge Date: 05/28/2019 Expected LOS: 1 Initial Reviewer: [email or web address] Initial Review Date: 05/29/2019 Generated: 05/29/19 9:18 am Patient Name: QUIRINO LOPEZ Page 82059 at 0818 All edits/amendments must be made on the electronic document DICTATION DATE: 05/29/19817 VOCATIONAL NURSE LVN: AMY 05/29/19817 RPT#: [id number] DC DATE:05/28/19 STATUS: DIS IN [facility] [address] [place] [address] END OF REPORT
== END 2019-05-28 19:46 | disposition home or self-care (01) ==
LOC: D.ER 20:58 → OBSVTIME 22:42 → D.M2 22:42
PROVIDERS: Family Medicine; ADMIT Family Medicine; ATTEND Family Medicine
DX: I25.110 Atherosclerotic heart disease of native coronary artery with unstable angina pectoris (principal); I48.91 Unspecified atrial fibrillation; I10 Essential (primary) hypertension; E78.5 Hyperlipidemia, unspecified; K21.9 Gastro-esophageal reflux disease without esophagitis

== ENCOUNTER → 2019-05-31 08:47 | Outpatient (CLI) | payer MEDICARE, OTHER | END | disposition home or self-care (01) | LOC: D.RAD 08:47 | PROVIDERS: ATTEND Internal Medicine Gastroenterology | DX: K21.9 Gastro-esophageal reflux disease without esophagitis (principal) ==

== ENCOUNTER 2019-06-04 09:22 | Outpatient (CLI) | payer MEDICARE, OTHER | END 2019-06-04 10:45 | disposition home or self-care (01) | LOC: D.OPS 09:22 | PROVIDERS: ATTEND Surgery | DX: K21.9 Gastro-esophageal reflux disease without esophagitis (principal) ==

== ENCOUNTER 2020-08-02 05:09 | Inpatient (IN) | payer MEDICARE, OTHER ==
[~2020-08-02] VITALS: Ht 182.9 cm
[2020-08-02] VITALS (7 sets, daily range): BP systolic 116–155; BP diastolic 39–60; BMI 27.2
--- NOTE | ~2020-08-02 | HEMODYNAMI ---
PATIENT:QUIRINO LOPEZ MEDICAL RECORD: [id number] : 51 LOCATION:[facility] ADMISSION DATE: 08/03/20 Generatedon:113:59 Patient name: QUIRINO LOPEZ Patient #: [id number] SSN: : 1955 Date of study: 08/21/2020 Page: Of Hemodynamic Procedure Report Patient Data Patient Demographics Procedure consent was obtained First Name: QUIRINO Gender: Male Last Name: JESSICA : 1955 Middle Initial: ARSENIO Age: 65 year(s) Patient #: [id number] Race: Unknown Additional ID: [id number] Contact details [address]: [address] [place] [address] State: [place] City: [place] Zip code: [address] Past Medical History Allergies Allergen Reaction Date Comments Reported Other allergy 10/04/2018 ASACOL, TRICOR Other allergy 08/03/2020 ASACOL, TRICOR Admission Admission Data Admission Date: 08/03/2020 Admission Time: 17:05 [facility] Height (in.): 71.65 BSA: 2.13 (m2) Height (cm.): 182 BMI: 27.47 (kg/m2) Weight (lbs.): 200.62 Weight (kg.): 91 Procedure Procedure Types Cath Procedure Peripheral Cath Diagnostic Procedure Supervisory Investigative Specialist Peripheral Procedures PICC PICC Line Placement Procedure Description Procedure Date Procedure Date: 08/21/2020 Procedure Start Time: 13:48 Procedure Staff Name Function Kurtis Paul MD Performing Physician Octavia Flaherty RT Marriage And Family Therapist Mirian Madrigal RN Nurse Last Fuentes RT Scrub Procedure Data Cath Procedure Fluoroscopy Diagnostic fluoroscopy Total fluoroscopy Time: 0.9 time: 0.9 min min Diagnostic fluoroscopy Total fluoroscopy dose: 4 dose: 4 mGy mGy Hemodynamics Rest BSA: 2.13 (m2) O2 Consumption: Estimated: 289.68 (ml/min) O2 Consumption indexed : Estimated:136 (ml/min/m) Pre Cath Intra NCS Post Cath Procedure Log Time Note 13::44 Patient Height : 71.65 inches 13:31:44 Patient Weight : 200.62 lbs 13:32:00 Use device set PICC 13:32:09 PowerPICC 5Fr double lumen catheter opened to sterile field. 13:32:09 SHIELD Hilton ([id number]) opened to sterile field. 13:32:10 Sterile Angiographic Pack opened to sterile field. 13:32:11 Bag Decanter (2002S) opened to sterile field. 13:32:16 - 13:34:39 Time tracking: Regular hours (M-F 7:00 - 5:00) 13:48:02 Signed procedure consent form obtained from patient. 13:48:09 Right Arm area was prepped with chlora-prep and draped in sterile fashion 13:48:10 --------ALL STOP TIME OUT------ 13:48:10 Final Timeout: patient, procedure, and site verified with staff and physician. All members of the team are in agreement. 13:48:22 Procedure started. 13:48:22 Full Disclosure recording started 13:48:37 Local anesthetic to right arm with Lidocaine 1% by Kurtis Paul MD.INITIAL ACCESS ONLY 13:48:39 Venous access obtained using ultrasound guidance. 13:57:58 PICC line was trimmed to 50cm and advanced to the superior vena cava.Position verified under fluoroscopy. 13:58:11 Procedure ended.(Physican Out) 13:58:16 Fluoroscopy time 00.90 minutes. 13:58:22 Fluoroscopy dose: 4 mGy 13:58:22 Flurop Dose total: 4 13:58:43 Procedure and supply charges have been captured, reviewed, submitted an d are correct. 13:59:11 Report given to CVICU. Device Usage Item Name Manufacture Quantity Catalog Hospital Part Current Minimal Lot# / Number Charge Number Stock Stock Serial# Code PowerPICC Bard 1 [id number] [id number] [id number] 5 5Fr double lumen catheter SHIELD Centurion 1 [id number] 625481 485190 5 Sorbaview ([id number]) Sterile Cardinal 1 [id number] [id number] 381478 5 Angiographic Health Pack Bag Decanter Microtek [id number] 74601 295803 5 () SnapShot [employer]. Signature Audit [place] Stage Time Signature Unsigned Intra-Procedure 08/21/2020 Octavia Flaherty 1:59:30 PM RT(R) [facility] [address] [place] [address]
--- NOTE | ~2020-08-02 | HEMODYNAMI ---
PATIENT:QUIRINO LOPEZ MEDICAL RECORD: [id number] : 51 [facility] AD[facility]ION DATE: 08/02/20 Generatedon:19:41 Patient name: QUIRINO LOPEZ Patient #: [id number] SSN: : 1955 Date of study: 08/03/2020 Page: Of Hemodynamic Procedure Report Patient Data Patient Demographics Procedure consent was obtained First Name: QUIRINO Gender: Male Last Name: JESSICA : 1955 Middle Initial: ARSENIO Age: 65 year(s) Patient #: [id number] Race: Unknown Additional ID: [id number] Contact details Address: [address] [place] [address] State: [place] City: [place] Zip code: [address] Past Medical History Allergies Allergen Reaction Date Comments Reported Other allergy 10/04/2018 ASACOL, TRICOR Other allergy 08/03/2020 ASACOL, TRICOR Admission Admission Data Admission Date: 08/02/2020 Admission Time: 7:29 Room #: D.2108 Height (in.): 71.65 BSA: 2.13 (m2) Height (cm.): 182 BMI: 27.47 (kg/m2) Weight (lbs.): 200.62 Weight (kg.): 91 Lab Results Lab Result Date: 08/03/2020 Lab Result Time: 0:00 Biochemistry Name Units Result Min Max BUN mg/dl 22 --(----)-* 7 18 Creatinine mg/dl 1.1 --(--*-)-- 0.6 1.3 eGFR ml/min 70.88517 *-(----)-- 90 120 NONAFRICAN CBC Name Units Result Min Max Hematocrit % 47.3 --(-*--)-- 42 54 Hemoglobin g/dl 15.9 --(--*-)-- 13.5 17.5 Procedure Procedure Types Cath Procedure Diagnostic Procedure [facility] w/Coronaries Aortic Root Angiography Sedation Charges Moderate Sedation 10-24 minutes Procedure Description Procedure Date Procedure Date: 08/03/2020 Procedure Start Time: 9:24 Procedure End Time: 9:39 Procedure Staff Name Function Sd Parmar MD Performing Physician Namita Larkin RT Monitor Shiloh Pedraza RT Scrub Gloria Bella RN Nurse Procedure Data Cath Procedure Fluoroscopy Diagnostic fluoroscopy Total fluoroscopy Time: 2.9 time: 2.9 min min Diagnostic fluoroscopy Total fluoroscopy dose: 2.9 dose: 2.9 mGy mGy Contrast Material Contrast Material Type Amount (ml) Isovue 300 125 Entry Location Entry Primary Successful Side Size Upsize Upsize Entry Closure Succes sful Closure Location (Fr) 1 (Fr) 2 (Fr) Remarks Device Remarks Femoral Right 5 Fr Exoseal artery Estimated blood loss: 10 ml Diagnostic catheters Device Type Used For End Catheter Placement DIAGNOSTIC JL 6 5Fr Procedure catheter ([id number]) DIAGNOSTIC AL2 5Fr Procedure catheter ([id number]) DIAGNOSTIC Pigtail 5Fr Ventriculography catheter ([id number]) Procedure Complications No complications Procedure Medications Medication Administration Route Dosage Oxygen etCO2 Nasal cannula 2 l/min Heparin Flush Bag added to field 2 bags (1000units/500ml NS) Lidocaine 2% added to field 20 0.9% NaCl I.V. 100 ml/hr Fentanyl I.V. 50 mcg Versed I.V. 1 mg Fentanyl I.V. 50 mcg Versed I.V. 1 mg Hemodynamics Rest BSA: 2.13 (m2) HGB: 15.9 (g/dl) O2 Consumption: Estimated: 241.66 (ml/min) O2 Co nsumption indexed: Estimated:113.46 (ml/min/m) Heart Rate: 63 (bpm) Pressure Samples Time Site Value (mmHg) Purpose Heart Use Rate(bpm) 9:33 LV 119/8,8 Snapshot 41 Gradients Valve Time Site Site Mean SEP/DFP Peak To Heart Use 1 2 (mmHg) (sec/min) Peak Rate (mmHg) (bpm) Aortic 9:33 LV AO 76 Snapshots Pre Cath Intra NCS Post Cath Vital Signs Time Heart Resp SPO2 etCO2 NIBP (mmHg) Rhythm Pain Sedation Rate (ipm) (%) (mmHg) Status Level (bpm) 9:10:00 64 23 98 0 158/67(114) NSR 0 (11) 10(A) , No pain 9:14:22 65 16 97 0 156/66(115) NSR 0 (11) 10(A) , No pain 9:18:44 64 20 96 0 151/69(115) NSR 0 (11) 10(A) , No pain 9:23:04 57 14 92 2.2 161/67(123) NSR 0 (11) 9(A) , No pain 9:27:27 69 14 96 0 145/73(126) NSR 0 (11) 9(A) , No pain 9:32:26 53 15 94 12.7 Measuring NSR 0 (11) 9(A) , No pain 9:32:42 72 15 94 23.3 157/67(122) NSR 0 (11) 9(A) , No pain 9:37:08 67 10 96 29.3 148/59(112) NSR 0 (11) 9(A) , No pain Medications Time Medication Route Dose Verified Delivered Reason Notes Effe ctiveness by by 9:09:45 Oxygen etCO2 2 Gloria Gloria for low 02 Nasal l/min Jena Bella sats cannula RN RN 9:09:54 Heparin Flush added 2 Gloria Gloria used for Bag to bags Jena Bella procedure (1000units/500ml field RN RN NS) 9:10:03 Lidocaine 2% added 20ml Gloria Sd for local to vial [facility] Jena John anesthetic field MARCY CERVANTES 9:10:16 0.9% NaCl I.V. 100 Gloria Gloria for low 02 ml/hr Jena Bella sats RN RN 9:19:08 Fentanyl I.V. 50 Gloria Gloria for mcg Cal Bellakins, sedation RN RN 9:19:12 Versed I.V. 1 mg Gloria Gloria for Bella, Bella, sedation RN RN 9:34:45 Fentanyl I.V. 50 Gloria Gloria for mcg Jena, Bella, sedation RN RN 9:34:48 Versed I.V. 1 mg Gloria Gloria for Bella, Bella, sedation RN senior software project manager Log Time Note 8:25:45 Informed consent obtained and on chart 8:26:27 Procedure Status Urgent Heart Cath (IP). 8:26:28 Time tracking: Regular hours (M-F 7:00 - 5:00) 8:26:31 Plan of Care:Hemodynamics will remain stable., Cardiac rhythm will remain stable., Comfort level will be maintained., Respiratory function will remain adequate., Patient/ family verbilizes understanding of procedure., Procedure tolerated without complication., Recovers from procedure without complications.. 8:26:40 H&P Date Dictated: 08/02/2020 ER History on chart.. 8:31:59 Patient allergic to Other allergyASACOL, TRICOR 8:32:31 Lab Result : BUN 22 mg/dl 8:32:31 Lab Result : Creatinine 1.1 mg/dl 8:32:31 Lab Result : eGFR NONAFRICAN 70.26826 ml/min 8:32:31 Lab Result : Hematocrit 47.3 % 8:32:31 Lab Result : Hemoglobin 15.9 g/dl 8:32:40 Patient Weight : 200.62 lbs 8:32:43 Patient Height : 71.65 inches 8:53:14 [employer] RT(R) sent for patient. Start room use. 9:08:45 Patient received from [employer] to CCL 2 Alert and oriented. Tansferred to table in Supine position. 9:08:46 Warm blankets applied, and irma hugger turned on for patient comfort. 9:08:46 Correct patient and procedure confirmed by team. 9:08:46 ECG and BP/O2 sat monitors applied to patient. 9:08:47 Vital chart was started 9:09:45 Oxygen 2 l/min etCO2 Nasal cannula was administered by Gloria Bella RN; for low 02 sats; Verbal order read back and verified. 9:09:54 Heparin Flush Bag (1000units/500ml NS) 2 bags added to field was administered by Gloria Bella RN; used for procedure; Verbal order read back and verified. 9:10:03 Lidocaine 2% 20ml vial added to field was administered by Sd Parmar MD; for local anesthetic; Verbal order read back and verified. 9:10:16 0.9% NaCl 100 ml/hr I.V. was administered by Gloria Bella RN; for low 02 sats; Verbal order read back and verified. 9:11:37 Baseline sample Acquired. 9:11:40 Full Disclosure recording started 9:11:42 Pre-procedure instructions explained to patient. 9:11:46 Family unavailable. 9:11:48 Patient NPO since Midnight. 9:11:52 Is the patient allergic to Iodine/contrast media? No. 9:11:53 Was the patient premedicated? Yes 9:11:54 Is patient on blood thinner?No 9:11:56 Patient diabetic? No. 9:12:00 Snore? Yes 9:12:02 Sleep apnea? No 9:12:08 Dentures? No ? 9:12:47 Lab results completed and on chart. 9:12:57 Right groin area was prepped with chlora-prep and draped in sterile fashion 9:12:58 Alarms reviewed by R. N. 9:12:59 Sharps counted by scrub and verified by R.N. 9:13:01 Physician arrived 9:13:02 --------ALL STOP TIME OUT------ 9:13:03 Final Timeout: patient, procedure, and site verified with staff and physician. All members of the team are in agreement. 9:13:05 Right groin site verified by team. 9:13:10 Fire Safety Assessment: A--An alcohol-based skin anteseptic being used preoperatively., C--Open oxygen or nitrous oxide is being used., D--An ESU, laser, or fiber-optic light is being used. 9:13:16 Physical assessment completed. ASA score P 3 - A patient with severe systemic disease as per Sd Parmar MD. 9:13:23 2) 60-89 Mildly reduced kidney function, and other findings (as for stage 1) point to kidney disease. 9:13:38 Maximum allowable contrast dose (3.7 X eGFR X 0.75)197 ml. 9:13:44 Sedation plan: IV Moderate Sedation Medication:Versed, Fentanyl 9:19:08 Fentanyl 50 mcg I.V. was administered by Gloria Bella RN; for sedation; Verbal order read back and verified. 9:19:12 Versed 1 mg I.V. was administered by Gloria Bella RN; for sedation; Verbal order read back and verified. 9:23:34 Use device set Femoral Dx 9:23:36 Procedure started. 9:24:48 Local anesthetic to right femoral artery with Lidocaine 2% by Sd Parmar MD.INITIAL ACCESS ONLY 9:26:18 A 5 Fr sheath was inserted into the Right Femoral artery 9:29:06 A DIAGNOSTIC JL 6 5Fr catheter ([id number]) was advanced over the wire and used for Procedure. 9:29:08 LCA angiography performed. 9:29:10 Catheter removed. 9:29:18 A DIAGNOSTIC AL2 5Fr catheter ([id number]) was advanced over the wire and used for Procedure. 9:29:34 RCA angiography performed. 9:30:43 Catheter removed. 9:30:59 A DIAGNOSTIC Pigtail 5Fr catheter ([id number]) was advanced over the wire and used for Ventriculography. 9:31:05 Zero performed for pressure channel P1 9:31:57 ACIST Syringe (52504) opened to sterile field. 9:31:58 Bag Decanter (2002S) opened to sterile field. 9:31:59 Medline Cath Pack ([id number]) opened to sterile field. 9:32:03 ACIST Hand Control (04426) opened to sterile field. 9:32:04 ACIST Manifold (74058) opened to sterile field. 9:32:06 Tegaderm 4 x 4 (1626W) opened to sterile field. 9:32:09 SHEATH 5FR [place] (GLJ691) opened to sterile field. 9:32:11 EMERALD Guide Wire (731-425) opened to sterile field. 9:32:17 LV gram done using CODY 9:33:31 EF : 35 % 9:33:33 Aortic Root visualized 9:34:45 Fentanyl 50 mcg I.V. was administered by Gloria Bella RN; for sedation; Verbal order read back and verified. 9:34:48 Versed 1 mg I.V. was administered by Gloria Bella RN; for sedation; Verbal order read back and verified. 9:35:20 Catheter removed. 9:35:43 Sheath removed intact; hemostasis achieved with Exoseal to the Right Femoral artery. 9:35:47 EXOSEAL 5Fr (EX500) opened to sterile field. 9:35:51 Procedure ended.(Physican Out) 9:36:00 Fluoroscopy time 02.90 minutes. 9:36:09 Fluoroscopy dose: 2.9 mGy 9:36:09 Flurop Dose total: 2.9 9:36:24 Dose Area Product 99739 mGy/cm. 9:36:31 Contrast amount:Isovue 300 125ml. 9:36:33 Maximum allowable dose exceeded? No. 9:36:34 Sharps counted by scrub and verified by R.N. 9:36:35 Insertion/operative site no bleeding no hematoma. 9:36:38 Post-op/insertion site Right Femoral artery dressed using a 4 x 4 and Tegaderm. 9:36:45 Post procedure rhythm: unchanged. 9:36:50 Estimated blood loss: 10 ml 9:36:52 Post procedure instruction explained to patient.Patient verbalizes understanding. 9:37:05 Procedure type changed to Cath procedure, Diagnostic procedure, [facility], [facility] w/Coronaries, Aortic Root Angiography, Sedation Charges, Moderate Sedation 10-24 minutes 9:37:55 Procedure and supply charges have been captured, reviewed, submitted and are correct. 9:38:50 Procedure Complication : No complications 9:38:52 Vital chart was stopped 9:39:00 [facility] Findings: MVD- MD will discuss options w/ pt 9:39:04 Operative report dictated upon procedure completion. 9:39:04 See physician's report for complete and final results. 9:39:06 Report given to [facility]. 9:39:10 Patient transfered to [facility] with Bed. 9:39:12 Procedure ended. 9:39:12 Full Disclosure recording stopped Device Usage Item Name Manufacture Quantity Catalog Hospital Part Current Minimal L ot# / Number Charge Number Stock Stock Serial# Code DIAGNOSTIC Cardinal 1 [id number] 235666 839401 160715 5 JL 6 5Fr Health catheter ([id number]) DIAGNOSTIC Cardinal 1 [id number] 517426 391313 862652 15 AL2 5Fr Health catheter (210160U) DIAGNOSTIC Cardinal 1 [id number] 462579 230125 772816 5 Pigtail 5Fr Health catheter (152785V) ACIST Acist 1 85467 045636 772350 649257 20 Syringe Medical (72673) Systems Inc Bag Microtek 1 572738 44330 973802 5 Decanter Medical Inc. () Medline Medline 1 [id number] 677052 54218 287055 5 Cath Pack ([id number]) ACIST Hand Acist 1 61807 463774 978604 370967 5 Control Medical (19821) Systems Inc ACIST Acist 1 64519 318372 293586 296333 5 Manifold Medical (54765) Systems Inc Tegaderm 4 3M 1 1626W 313150 336404 315278 5 x 4 (1626W) SHEATH 5FR Terumo 1 [id number] 512509 106202 279078 5 [place] (UPO770) EMERALD Cardinal 1 502-455 498487 890663 732103 5 Guide Wire Health (502455) EXOSEAL 5Fr Cardinal 1 EX500 344631 200721 225082 10 (EX500) Health Signature Audit [place] Stage Time Signature Unsigned Intra-Procedure 08/03/2020 Namita Larkin 9:39:33 AM RT(R); Gloria Bella RN; Sd Parmar MD Signatures Performing Physician : Signature : Sd Parmar MD Date : Time : Monitor : Namita Larkin Signature : RT Date : Time : Nurse : Gloria Bella, Signature : RN Date : Time : [facility] [address] [place] [address]
[2020-08-02] MEDS ORDERED: FUROSEMIDE20 MG PO (05:28)
[2020-08-02] MEDS ORDERED: LOVASTATIN40 MG PO (05:28)
[2020-08-02 05:41] LABS: BASOPHILS 0.9 % (0-2); EOSINOPHILS 5.7 % (0-7); HEMATOCRIT 47.3 % (42.0-54.0); HEMOGLOBIN 15.9 g/dL (13.5-17.5); IMMATURE GRANULOCYTES 0.5 % (0-5); LYMPHOCYTES 24.6 % (15-50); MCH 28.1 pg (26.0-34.0); MCHC 33.6 g/dL (31.0-37.0); MCV 83.6 fL (80.0-100.0); MEAN PLATELET VOLUME 11.4 fL (7.4-10.4); MONOCYTES 10.2 % (2-11); NEUTROPHIL ABS# 4.49 10x3/uL (1.78-5.38); NEUTROPHILS 58.1 % (40-80); RBC 5.66 10x6/uL (4.20-6.10); RDW 13.6 % (11.5-14.5); WBC 7.7 10x3/uL (4.8-10.8)
[2020-08-02 05:46] LABS: APTT 34.3 SECONDS (22.8-39.4); CALC OSMOLALITY 288 mosm/kg (275-300); CARBON DIOXIDE 24.4 mmol/L (21.0-32.0); CHLORIDE - SERUM 106 mmol/L (98-107); CREATININE - SERUM 1.1 mg/dL (0.6-1.3); GLUCOSE 114 mg/dL (74-106); INR 1.24 (0.85-1.17); PLATELET COUNT 183 10x3/uL (130-400); PROTIME 14.4 SECONDS (11.6-15.0); SODIUM 143 mmol/L (136-145); UREA NITROGEN 22 mg/dL (7-18); eGFR NON AFRICAN AMERICAN 71 mL/min (90-120)
[2020-08-02 06:06] LABS: ALBUMIN 3.7 g/dL (3.4-5.0); ALKALINE PHOSPHATASE 41 U/L (30-120); ALT (SGPT) 53 U/L (10-68); BILIRUBIN - TOTAL 0.56 mg/dL (0.2-1.3); CKMB 0.6 U/L (0.0-3.6); CREATINE KINASE 63 UL (21-232); PRO BNP 911 pg/mL (0-125); PROTEIN - SERUM 7.2 g/dL (6.4-8.2)
[2020-08-02 06:11] LABS: TROPONIN-I 0.097 ng/mL (0.000-0.060)
--- NOTE | 2020-08-02 07:01 | NUR ---
ASSUMED CARE, PATIENT LAYING IN SUPINE POSTION, NO DISTRESS NOTED, NO COMPLAINTS OF PAIN AT THIS TIME. A&O X4. PATIENT HEARD OF HEARING. CALL LIGHT WITHIN REACH AND BED IN LOWEST LOCKED POSITION.
[2020-08-02 07:45] LABS: CKMB 0.7 U/L (0.0-3.6); CREATINE KINASE 58 UL (21-232)
[2020-08-02 07:46] LABS: TROPONIN-I 0.093 ng/mL (0.000-0.060)
[2020-08-02 14:13] LABS: CKMB 0.8 U/L (0.0-3.6); CREATINE KINASE 52 UL (21-232)
[2020-08-02 19:54] LABS: CKMB 0.7 U/L (0.0-3.6); CREATINE KINASE 54 UL (21-232)
[2020-08-02 20:04] LABS: TROPONIN-I 0.086 ng/mL (0.000-0.060)
--- NOTE | 2020-08-03 07:20 | NUR ---
RECIEVE REPORT. ALERT AND ORIENTED X4. SITTING UP IN BED. SINUS RHYTHM ON TELEMETRY. DENIES ANY NEEDS. CONTINUE PLAN OF CARE AND SAFETY PRECAUTIONS.
--- NOTE | 2020-08-03 08:00 | CN ---
PATIENT NAME:QUIRINO LOPEZ MEDICAL RECORD: [id number] : 51 LOCATION:D. D.2108 ADMIT DATE: 08/02/20 ACCOUNT: [id number] CONSULTING PHYSICIAN: LIZZY READ MD REFERRING PHYSICIAN: BOBBI MONSALVE DO DATE OF CONSULTATION: 08/02/2020 HISTORY OF PRESENT ILLNESS: A 65-year-old gentleman with a history of early atherosclerotic plaquing via angiography via Dr. Stein. He has a history of atrial fibrillation, admitted with chest pain, questionable AFib breakthrough orthopneic type symptomatology, noted to have elevated cardiac enzymes. We are asked to see him concerning his cardiovascular status. PAST MEDICAL HISTORY: Includes; 1. History of atrial fibrillation. 2. Hypertension. 3. Hyperlipidemia. 4. Early atherosclerotic plaquing via angiography via Dr. Stein. ALLERGIES: ASACOL, TRICOR. MEDICATIONS: Include lisinopril 20 mg p.o. every day, lovastatin 40 every day, sotalol 80 b.i.d., Lasix 20 every day, Omeprazole 40 every day. SOCIAL HISTORY: Nonsmoker, nondrinker. Typically, easily takes care of all his ADLs. REVIEW OF SYSTEMS: The patient reports easy bruising but reports no swollen glands. The patient reports no fever, no night sweats, no significant weight gain, no significant weight loss. No significant exercise tolerance. The patient reports no dry eyes, no irritation, no vision change. Patient reports no difficulty hearing and no ear pain. Patient reports no frequent nose bleeds or nose and sinus problems. Patient reports on arm pain on exertion. No shortness of breath while lying down. No history of heart murmur. Patient reports no cough, no wheezing or coughing up blood. Patient reports no abdominal pain, no vomiting. Normal appetite. No diarrhea and not vomiting blood. No nausea and no constipation. Patient reports no incontinence. No difficulty urinating. No hematuria. No increased frequency. Patient reports no muscle aches. No weakness, no arthralgias, no back pain. No swelling of the extremities. Patient reports no abnormal mole, no jaundice, no rashes. Reports no loss of consciousness. No weakness and no numbness. No seizures, dizziness, or headaches. The patient reports no depression, no sleep disturbance, feeling safe in a relationship and no alcohol abuse. Patient reports on fatigue. Reports no runny nose or sinus pressure. No itching, no hives, and no frequent sneezing. PHYSICAL EXAMINATION: GENERAL: Pleasant, in no acute distress, appears stated age. VITAL SIGNS: Blood pressure 140/60, pulse 62 and regular. HEENT: Normocephalic, atraumatic. NECK: No JVD or bruit. HEART: Regular. A II/ systolic ejection murmur. LUNGS: Good air excursion. ABDOMEN: Soft and nontender. EXTREMITIES: Pulses 2+. No edema. CONSULT REPORT [id number] QUIRINO LOPEZ NEUROLOGIC: Grossly intact. DIAGNOSTIC DATA: Current EKG shows normal sinus rhythm with nonspecific ST-T wave changes inferolaterally. IMPRESSION AND PLAN: At this point in time, given his symptomatology of known history of coronary artery disease as well as elevated enzymes and his EKG changes, we will plan for diagnostic angiography and intervention based on the above. TRANSINT:[id number] Voice Confirmation ID: [id number] DOCUMENT ID: [id number] LIZZY READ MD at 0800 CC: [id number] DICTATION DATE: 08/02/20 09 TALENT ACQUISITION COORDINATOR: 08/02/20 1656 ADM IN [place] [id number] [place] [address]
[2020-08-03 08:25] VITALS: BP 153/52
[2020-08-03 09:03] LABS: BASOPHILS 0.6 % (0-2); EOSINOPHILS 5.1 % (0-7); HEMATOCRIT 45.4 % (42.0-54.0); HEMOGLOBIN 15.1 g/dL (13.5-17.5); IMMATURE GRANULOCYTES 0.4 % (0-5); LYMPHOCYTE ABS# 1.59 10x3/uL (1.32-3.57); LYMPHOCYTES 23.1 % (15-50); MCH 27.8 pg (26.0-34.0); MCHC 33.3 g/dL (31.0-37.0); MCV 83.6 fL (80.0-100.0); MEAN PLATELET VOLUME 11.5 fL (7.4-10.4); NEUTROPHIL ABS# 4.33 10x3/uL (1.78-5.38); NEUTROPHILS 62.8 % (40-80); PLATELET COUNT 160 10x3/uL (130-400); RBC 5.43 10x6/uL (4.20-6.10); RDW 13.5 % (11.5-14.5); WBC 6.9 10x3/uL (4.8-10.8)
[2020-08-03 09:22] LABS: ALT (SGPT) 51 U/L (10-68); CALC OSMOLALITY 290 mosm/kg (275-300); CALCIUM 9.3 mg/dL (8.5-10.1); CARBON DIOXIDE 24.4 mmol/L (21.0-32.0); CHLORIDE - SERUM 107 mmol/L (98-107); CHOL - HDL RATIO 3.6 ratio (2.3-4.9); CHOLESTEROL, TOTAL 93 mg/dL (0-200); CREATININE - SERUM 1.1 mg/dL (0.6-1.3); GLUCOSE 106 mg/dL (74-106); HDL CHOLESTEROL 26 mg/dL (32-96); POTASSIUM - SERUM 4.1 mmol/L (3.5-5.1); SODIUM 143 mmol/L (136-145); TRIGLYCERIDE 343 mg/dL (30-200); UREA NITROGEN 30 mg/dL (7-18); eGFR NON AFRICAN AMERICAN 71 mL/min (90-120)
--- NOTE | 2020-08-03 09:56 | NUR ---
RETURN TO ROOM VIA BED FROM BASIC ACOUSTIC ANALYST. ALERT AND ORIENTED X4. RT GROIN DRESSING CLEAN DRY INTACT. FREE FROM BLEEDING. FREE FROM HEMATOMA. PULSE PALPABLE BILATERALLY. BP-142/74, HR-70 SINUS RHYTHM, O2 92% RA, RESP-14. CONTINUE PLAN OF CARE AND SAFETY PRECAUTIONS.
[2020-08-03 12:46] VITALS: BP 136/54
--- NOTE | 2020-08-03 15:36 | NUR ---
ALERT AND ORIENTED X4. SITTING UP IN BED. FAMILY AT BEDSIDE. CONSENTS FOR CABG SIGNED ON CHART. MED REC, RT/LT ARM BP, HT, AND WT ON FRONT OF CHART. DENIES ANY NEEDS. SINUS RHYTHM ON TELEMETRY. CONTINUE PLAN OF CARE AND SAFETY PRECAUTIONS.
[2020-08-03 16:17] LABS: BASOPHILS 0.4 % (0-2); EOSINOPHILS 4.7 % (0-7); HEMATOCRIT 45.9 % (42.0-54.0); HEMOGLOBIN 15.2 g/dL (13.5-17.5); IMMATURE GRANULOCYTES 0.4 % (0-5); LYMPHOCYTE ABS# 1.37 10x3/uL (1.32-3.57); MCH 27.5 pg (26.0-34.0); MCHC 33.1 g/dL (31.0-37.0); MCV 83.2 fL (80.0-100.0); MEAN PLATELET VOLUME 11.1 fL (7.4-10.4); MONOCYTES 10.2 % (2-11); NEUTROPHILS 64.3 % (40-80); PLATELET COUNT 169 10x3/uL (130-400); RBC 5.52 10x6/uL (4.20-6.10); RDW 13.4 % (11.5-14.5); WBC 6.9 10x3/uL (4.8-10.8)
[2020-08-03 16:25] LABS: APTT 33.7 SECONDS (22.8-39.4); INR 1.27 (0.85-1.17); PROTIME 14.7 SECONDS (11.6-15.0)
[2020-08-03 16:46] LABS: ALBUMIN 3.6 g/dL (3.4-5.0); ANION GAP 11.3 mmol/L (8-16); BILIRUBIN - TOTAL 0.91 mg/dL (0.2-1.3); CALCIUM 8.7 mg/dL (8.5-10.1); CARBON DIOXIDE 28.6 mmol/L (21.0-32.0); CREATININE - SERUM 1.2 mg/dL (0.6-1.3); PHOSPHOROUS 3.8 mg/dL (2.5-4.9); POTASSIUM - SERUM 3.9 mmol/L (3.5-5.1); T4 THYROXIN - FREE 0.85 ng/dL (0.76-1.46); THYROID STIMULATING HORMONE 2.85 uIU/mL (0.36-3.74); URIC ACID 8.2 mg/dL (2.6-7.2)
[2020-08-03 17:01] VITALS: BP 147/54
[2020-08-03 20:00] VITALS: BP 142/47
--- NOTE | 2020-08-03 20:20 | NUR ---
PT MOVED FROM 2107 TO 2116 BY TONYA ROMERO, AFTER PT WAS MOVED INTO 2116, PT BECAME IRATE, PT OUT IN [facility], STATED THAT HE WANTED TO LEAVE, THAT HE WAS BEING MISTREATED, THAT HE HASNT SLEPT IN TWO DAYS, AND HE IS NOT GOING TO PUT UP WITH RUDE PEOPLE. CHARGE NURSE SHILOH ENTERED PTS ROOM, PT STILL YELLING THAT HE WANTS TO GO HOME, SHILOH EXPLAINED TO PT WHY HE WAS MOVED INTO A NEW ROOM, INTO THE CARDIAC UNIT, PT STILL ADAMANT THAT HE IS GOING HOME. PT THREATENING TO " KICK THE CNAs ASS" PT CALLING THE NURSING STAFF LIARS AND THIEVES, SECURITY AND HOUSE SUPP. CALLED. AFTER PT WAS ABLE TO SPEAK TO HIS SON HE DECIDED TO SPEND THE NIGHT IN THE HOSPITAL BUT WILL NOT AGREE TO HAVE SURGERY IF HE STILL FEELS UPSET IN THE MORNING.
--- NOTE | 2020-08-03 20:50 | NUR ---
C/O NOT SLEEPING FOR LAST [address] POSEY AND HE STATED TO CALL ADMITTING DOCTOR FOR THAT ORDER. DISPATCHER REFINERY SPKE WITH VU ANDREW WITH NEW ORDER FOR 2 MG LUNESTA. PT AWARE OF NEW ORDER. GAVE ALL HS MEDICATIONS. ASLEEP AT THIS TIME. REQUEST NOT TO BE AWAKEN FOR 12 AM VITALS. OFFICE PROFESSIONAL AWARE OF REQUEST. SPOKE WITH GIRLFRIEND SHE SAID SHE WANTED TO MAKE SURE HE IS ALRIGHT. BECAUSE HE WAS SO UPSET EARLIER.
[2020-08-04] VITALS (38 sets, daily range): BP systolic 99–136; BP diastolic 52–71
--- NOTE | 2020-08-04 01:46 | NUR ---
WOKE UP AND OUT IN HALLWAY. STATED " I'M WALKING DOWN TO ER. I CAN'T SLEEP AND I'M GOING CRAZY LAYING IN THAT ROOM. I'LL BE BACK". CAME BACK AND WENT BACK TO HIS ROOM.
--- NOTE | 2020-08-04 06:14 | NUR ---
SURGERY CALLED AND SAID PREP PT. PT PREPED AND WAITING TO BE PICKED UP.
[2020-08-04 06:47] LABS: BASOPHILS 0.6 % (0-2); EOSINOPHILS 4.8 % (0-7); HEMATOCRIT 46.7 % (42.0-54.0); IMMATURE GRANULOCYTES 0.7 % (0-5); LYMPHOCYTE ABS# 1.57 10x3/uL (1.32-3.57); LYMPHOCYTES 22.2 % (15-50); MCH 28.3 pg (26.0-34.0); MCHC 34.3 g/dL (31.0-37.0); MCV 82.7 fL (80.0-100.0); NEUTROPHIL ABS# 4.21 10x3/uL (1.78-5.38); NEUTROPHILS 59.7 % (40-80); PLATELET COUNT 179 10x3/uL (130-400); RBC 5.65 10x6/uL (4.20-6.10); RDW 13.5 % (11.5-14.5); WBC 7.1 10x3/uL (4.8-10.8)
[2020-08-04 06:55] LABS: ALBUMIN 3.6 g/dL (3.4-5.0); ANION GAP 15.5 mmol/L (8-16); BILIRUBIN - TOTAL 0.95 mg/dL (0.2-1.3); CALCIUM 8.8 mg/dL (8.5-10.1); CARBON DIOXIDE 23.5 mmol/L (21.0-32.0); CREATININE - SERUM 1.2 mg/dL (0.6-1.3)
[2020-08-04 07:21] LABS: BILIRUBIN NEGATIVE (NEGATIVE); KETONE NEGATIVE (NEGATIVE); NITRITE NEGATIVE (NEGATIVE); UROBILINOGEN NORMAL mg/dL (< 2)
[2020-08-04 13:36] LABS: APTT 37.5 SECONDS (22.8-39.4)
[2020-08-04 13:37] LABS: INR 1.83 (0.85-1.17); PROTIME 19.6 SECONDS (11.6-15.0)
--- NOTE | 2020-08-04 16:21 | NUR ---
20MEQ KCL INFUSING PER DR. POSEY'S ORDER. HAD PREVIOUSLY ORDERED HALF AMP OF CALCIUM. NOT GIVEN YET. DR. POSEY AWARE. CANCEL CALCIUM ORDER. RECHECK ABG'S AT 1800. RESPIRATORY NOTIFIED.
[2020-08-04 17:03] LABS: APTT 42.1 SECONDS (22.8-39.4); PROTIME 16.4 SECONDS (11.6-15.0)
[2020-08-04 17:19] LABS: INR 1.46 (0.85-1.17)
--- NOTE | 2020-08-04 18:21 | NUR ---
ABG RESULTS REPORTED TO DR. POSEY. ORDERED TO GIVE 1/2 AMP CALCIUM.
[2020-08-05] VITALS (106 sets, daily range): BP systolic 105–149; BP diastolic 54–72; Ht 182.9 cm
--- NOTE | 2020-08-05 04:45 | NUR ---
Central line dressing at [facility] changed using sterile technique. Sutures intact. No sign of infection.
--- NOTE | 2020-08-05 05:48 | NUR ---
Shift Summary: Patient remains normal sinus rhythm, EKG completed this morning. Drowsy, confused, with some brief periods of agitation. Sedation and AWNING FINISHER restraints continue for comfort and safety, Morphine administered as ordered prn. Dobutamine and nitroglycerine infusions continue, see flowsheets for details. Dressing changed to chest tube inscisions, sutures intact, no sign of infection. Midsternal and RLE incisions open to air, skin well approximated with skin adhesive. FiO2 weaned down as tolerated per Dr. Davenport, currently at 65%.
[2020-08-05 06:02] LABS: MCH 27.6 pg (26.0-34.0); MCHC 32.7 g/dL (31.0-37.0); MCV 84.3 fL (80.0-100.0); MEAN PLATELET VOLUME 10.8 fL (7.4-10.4); RDW 13.8 % (11.5-14.5)
[2020-08-05 06:07] LABS: HEMATOCRIT 31.2 % (42.0-54.0); HEMOGLOBIN 10.2 g/dL (13.5-17.5); RBC 3.7 10x6/uL (4.20-6.10); WBC 9.5 10x3/uL (4.8-10.8)
[2020-08-05 06:23] LABS: ALBUMIN 2.9 g/dL (3.4-5.0); ALKALINE PHOSPHATASE 30 U/L (30-120); ALT (SGPT) 39 U/L (10-68); BILIRUBIN - TOTAL 0.79 mg/dL (0.2-1.3); CALCIUM 7.6 mg/dL (8.5-10.1); CARBON DIOXIDE 25.6 mmol/L (21.0-32.0); CHLORIDE - SERUM 109 mmol/L (98-107); POTASSIUM - SERUM 3.9 mmol/L (3.5-5.1); PROTEIN - SERUM 5.7 g/dL (6.4-8.2); SODIUM 143 mmol/L (136-145); UREA NITROGEN 21 mg/dL (7-18); eGFR NON AFRICAN AMERICAN 79 mL/min (90-120)
[2020-08-05 06:25] LABS: CALC OSMOLALITY 291 mosm/kg (275-300); GLUCOSE 162 mg/dL (74-106)
--- NOTE | 2020-08-05 06:45 | NUR ---
LDAs intact, neurovascular status intact to RLE.
--- NOTE | 2020-08-05 07:35 | NUR ---
UPDATED DR. POSEY ON PT STATUS. SBP IN 130S. CLEVIPREX HAS BEEN INITIATED. HR 103. PA 25/15, CI 3.5, CO 7.4. NITRO AT 33.3MCG/MIN, DOBUTAMINE AT 3MCG/KG/MIN. ORDERS RECEIVED. WEAN OFF DOBUTAMINE OVER NEXT TWO HRS. WEAN OFF VENT AND PLAN TO EXTUBATE TODAY.
--- NOTE | 2020-08-05 08:20 | NUR ---
PROPOFOL CURRENTLY AT 30MCG/KG/MIN. PT OPENS EYES TO VOICE. GRIMMACING. MORPHINE GIVEN PER ORDER FOR PAIN. WILL CONTINUE TO MONITOR.
--- NOTE | 2020-08-05 09:15 | NUR ---
CALL RECEIVED FROM DELORES CONROY[facility]S NIECE. BARTOLO VEIFIED. WAS TOLD PT IS STABLE, ON MEDICATION TO KEEP BP UNDER 140. SEDATION TURNED DOWN AND PT FOLLOWED COMMANDS. WILL CONTINUE TO MONITOR.
--- NOTE | 2020-08-05 09:24 | NUR ---
CALL RECEIVED FROM ERIN. PASSCODE VERIFIED. UPDATE GIVEN.
--- NOTE | 2020-08-05 09:32 | NUR ---
DOBUTAMINE TURNED OFF AT THIS TIME. HR 106, BP 131/66, O2 SAT 90%.
--- NOTE | 2020-08-05 09:42 | NUR ---
DR. POSEY IN UNIT. ORDERS RECEIVED. 10MG IV HYDRALIZINE X 1 AND 40MG LASIX IV X 1.
--- NOTE | 2020-08-05 10:40 | NUR ---
TEMP 101.3. DR. ESPINAL AND DR. ROACH AWARE. BLOOD CULTURES, SPUTUM CULTURE AND URINE CULTURE ORDERED.
--- NOTE | 2020-08-05 10:46 | NUR ---
FIO2 INCREASED TO 70%, PEEP 8 BY RESPIRATORY THERAPIST.
--- NOTE | 2020-08-05 11:07 | NUR ---
O2 SAT 88%. RESPIRATORY THERAPIST NOTIFIED. FIO2 TURNED UP TO 80%.
--- NOTE | 2020-08-05 11:15 | NUR ---
CALL RECEIVED FROM DAIANA. UPDATE GIVEN. PT BACK ON SEDATION AND WILL NOT BE WEAN OFF VENT TODAY. O2 SAT 90% ON 80% FIO2. WILL CONTINUE TO MONITOR.
--- NOTE | 2020-08-05 11:23 | NUR ---
DR. POSEY NOTIFIED OF ELEVATED TEMP AND HR 115. ORDERS RECEIVED.
--- NOTE | 2020-08-05 11:56 | NUR ---
O2 SAT 89-90% ON 80% FIO2. DR. ESPINAL NOTIFIED. ORDERED ABG'S. RESPIRATORY THERAPIST NOTIFIED.
--- NOTE | 2020-08-05 12:15 | EC ---
PATIENT:QUIRINO LOPEZ DATE OF SERVICE: 08/03/20 SEX: M MEDICAL RECORD: [id number] DATE OF : 51 LOCATION:[place] [address] AGE OF PATIENT: 65 ADMISSION DATE: 08/03/20 REFERRING PHYSICIAN: INTERPRETING PHYSICIAN: LIZZY READ MD ECHOCARDIOGRAM REPORT ECHO CHARGES 4 ECHO COMPLETE Date: 08/04/20 CLINICAL DIAGNOSIS: AFIB ECHOCARDIOGRAPHIC MEASUREMENTS (adult normal given) AC root (d.<3.7cm) 5.5 cm LV Septum d (<1.2 cm> 1.4 cm Valve Excursion 1.4 cm LV Septum (systole) 1.6 cm Left Atria (s.<4.0cm> 3.5 cm LVPW d(<1.2cm) 1.3 cm RV (d.<2.3cm) 3.3 cm LVPW (sytole) 1.9 cm LV diastole(<5.6CM) 6.5 cm MV E-F(>70mm/sec) cm LV systole 4.3 cm LVOT Diameter 2.3 cm MV exc.(>10mm) 1.0 cm Est.ejection fraction (50-75%) % DOPPLER: LVIT cm/sec A 69 cm/sec E 44 cm/sec LA cm/sec RVSP 19 mmHg LVOT 179 cm/sec AOP1/2T m/s Asc. Ao 168 cm/sec RVOT 57 cm/sec RA cm/sec PA 75 cm/sec AV Gradient Peak 11.3 mmHg AV Mean 5.5 mmHg AV Area 2.8 cm MV Gradient Peak 3.0 mmHg MV Mean 1.5 mmHg MV Area cm COMMENTS: Real Estate Photographer: Mynor LINDO Client Care Specialist: 3 Dr. Crowell TAPE# Pericardial Effusion N DATE OF SERVICE: Adequate 2D, color-flow imaging, spectral Doppler, and M-Mode. FINDINGS: LVH is present. LV internal dimension is dilated. LV is minimally or mildly globally hypo with EF lower limits of normal to mildly reduced 45% to 50%. Aortic valve is tricuspid with good valve excursion. Moderate to severe AI. Left atrium is normal at 3.5 cm. Mitral valve shows no prolapse. Mild MR. Right side is grossly normal. Mild TR. ECHOCARDIOGRAM REPORT [id number] QUIRINO LOPEZ TRANSINT:[id number] Voice Confirmation ID: [id number] DOCUMENT ID: [id number] LIZZY READ MD at 1215 CC: [id number] DICTATION DATE: 08/04/20 1445 FUR STRETCHER: 08/04/20 2206 ADM IN [facility] [address] [place] [id number]
--- NOTE | 2020-08-05 12:15 | TEE ---
PATIENT:QUIRINO LOPEZ MEDICAL RECORD: [id number] LOCATION:[place] [address] AGE OF PATIENT: 65 ADMISSION DATE: 08/03/20 SEX: M REFERRING PHYSICIAN: INTERPRETING PHYSICIAN: LIZZY READ MD TRANSESOPHAGEAL ECHOCARDIOGRAM Date: 08/04/20 ELVIN CHARGE Y INDICATIONS: CABG PREMEDICATIONS: PATIENT'S RESPONSE PROCEDURE DOPPLER MEASUREMENTS: LVIT LA PA 75 RA LVOT 179 RVOT 57 Asc. Ao 168 AV Gradient Peak 11.3 AV Mean 5.5 AV Area 2.8 MV Gradient Peak 3.0 MV Mean 1.5 MV Area INTERPRETATION: Doppler: 2-D: COLOR FLOW DOPPLER NORMAL SALINE STUDY: MISCELLANOUS: DIAGNOSIS: PLAN: Communication Manager:3 Dr. Crowell Video Control Engineer: Mynor LINDO COMMENTS: DATE OF SERVICE: 08/04/2020 TRANSESOPHAGEAL INTRAOPERATIVE REPORT FINDINGS: Preoperatively shows mild LV hypokinesis, EF is mildly reduced 45-50%. Aortic valve has good excursion, but poor coaptation of the tricuspid leaflets and moderate to severe AI. Left atrium appears normal. Mild MR. Right-sided chambers are grossly normal. Trace TR. Postoperatively shows normal LV, wall motion, wall thickening, EF 55%. Prosthetic aortic valve was TRANSESOPHAGEAL ECHOCARDIOGRAM REPORT [id number] QUIRINO LOPEZ noted with trivial AI. Left atrium appears normal. Mitral valve appears normal. Mild MR. Right-sided chambers are grossly normal. Trace TR. TRANSINT:[id number] Voice Confirmation ID: [id number] DOCUMENT ID: [id number] at 1215 CC: [id number] DICTATION DATE: 08/04/20 1425 STRETCHER HELPER: 08/05/20 0325 ADM IN [facility] [address] [place] [place] [id number]
--- NOTE | 2020-08-05 13:09 | OP ---
PATIENT NAME: QUIRINO LOPEZ MEDICAL RECORD: [id number] :51 LOCATION:.[facility] D.CV02 ADMISSION DATE:08/03/20 SURGEON: PROSPER POSEY MD DATE OF OPERATION: 08/04/2020 SURGEON: Prosper Posey M.D. PROCEDURES PERFORMED: 1. Aortic valve replacement (23 mm aortic bioprosthesis). 2. 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 3. Coronary artery bypass graft times 2 (left internal mammary artery to LAD, reverse saphenous vein graft from aorta to first diagonal). 4. Endoscopic saphenous vein harvest. 5. Bilateral pulmonary vein radiofrequency ablation. 6. Left atrial appendage occlusion device application. 7. Lysis of left intrapleural apical adhesions. 8. Apical bleb resection. 9. Excision granulomatous lymph node. PREOPERATIVE DIAGNOSES: Aortic insufficiency, dilated cardiomyopathy, coronary artery disease, history of atrial arrhythmias. 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 ANESTHESIA: General endotracheal anesthesia. ESTIMATED BLOOD LOSS: Total cardiopulmonary bypass with Cell Saver retransfusion, 4 FFP, 1 platelets. COMPLICATIONS: None. SPECIMENS: Left pericardial lymph node for frozen returned granuloma. Additional lymph node 2 cm in size was sent for culture including fungal and AFB, left internal mammary artery lymph node, noncoronary sinus of Valsalva resection, aortic valve leaflets. CONDITION: Stable. DISPOSITION: CV ICU. OPERATIVE FINDINGS: 1. Transesophageal echocardiography confirmed a dilated annulus and severe AI with a vena contracta of 1.4 cm, left ventricular end-diastolic dimension 5.5, which was significantly less than it had been seen on the previous echocardiogram and the ejection fraction preoperatively and postoperatively was better than 35% on the ventriculogram yesterday. 2. Good quality greater saphenous vein harvested with 2 open incisions, right lower extremity. 3. Good quality left internal mammary artery. There was severe bullous disease and apical adhesions near the site of the left internal mammary artery takedown. These were taken down sharply, but due to the large bullae later this required resection of the apical bulla utilizing a stapling device. 4. The aortic root was enlarged with a sinus of Valsalva aneurysm involving OPERATIVE REPORT [id number] QUIRINO LOPEZ only the noncoronary sinus with the left and right coronary sinuses apparently fairly normal size. 5. CorMatrix patch used after excision of the noncoronary sinus down to the level of the annulus. 6. LAD 2.0 mm with moderate disease after stent. 7. First diagonal 1.75 mm. 8. A 35 mm left atrial appendage occlusion device. OPERATIVE INDICATION: Aortic insufficiency, dilated cardiomyopathy. PROCEDURE IN DETAIL: The patient was brought to the operating suite. General anesthesia was obtained, the patient was prepped and draped portion of saphenous vein, right lower extremity was harvested with 2 open bridging incisions. Side branches were clipped the vessel was removed. The side branches were tied. Leg was irrigated and closed in 2 layers. Median sternotomy incision was made. Subcutaneous tissue divided with electrocautery. The sternum was divided with a saw. The left hemisternum was elevated. Left pleural cavity was entered. Left internal mammary artery and vein was taken down as a pedicle graft. After taking down multiple adhesions near the top of the internal mammary in an area of fairly large apical bullae. Median sternotomy incision was then opened with a sternal retractor. Pericardium was opened. Heparin was given. Aorta was cannulated visualizing the aortic root. It was clear that the aorta was normal size less than 4 cm down to the sinotubular junction, and that the patient had a discrete sinus of Valsalva aneurysm with apparently fairly normal wall thickness. Dual stage venous cannula was inserted after activated clotting time was appropriately elevated. The patient was placed on cardiopulmonary bypass. The internal mammary was made ready for anastomosis Sites for distal anastomosis was selected. The patient was cooled. Retrograde cardioplegia cannula was inserted. Left ventricular vent was inserted. Antegrade cardioplegia needle was inserted. Crossclamp was placed. Cardioplegia was given retrograde and this was repeated at 20-minute intervals during the crossclamp time. Bilateral pulmonary vein radiofrequency ablation was performed in the left atrial appendage occlusion device was applied. Distal anastomosis was performed in a standard technique and flow in the internal mammary was controlled with esophageal bulldog until removal of the cross-clamp. Aortotomy was made. The noncoronary sinus of Valsalva was excised down to the level of the annulus. A CorMatrix patch was used to patch this wall and the valve leaflets were excised. The valve was sized to 23 mm. Interrupted pledgeted sutures were placed from ventricular to aortic side through the valve sewing ring. The valve was carefully lowered in place and tied. I inspected the valve revealed no subvalvular obstruction and no evidence of perivalvular leak. The aortotomy was closed with a double running suture line with multiple pledgets and with the patient in steep Trendelenburg position proximal anastomosis was performed 4.0 mm punch. The ventricular apex was deaired. The aortic root was de-aired cross-clamp removed. Transesophageal echocardiography was used for aid in deairing. The patient was in a spontaneous rhythm after one defibrillation proximal anastomoses were tied down. The vein graft was deaired and flow was restored. Proximal and distal anastomotic sites inspected for bleeding. Single sutures in the aortotomy, good function of the valve. The OPERATIVE REPORT [id number] QUIRINO LOPEZ patient fully rewarmed, weaned from cardiopulmonary bypass and stable. The patient was decannulated. Cannulation sites were oversewn. Protamine was given some Gelfoam and thrombin was then used along the right side of the aorta at the annulus and with hemostasis ensured. Drains were placed in the mediastinum and left pleural cavity. Atrial and ventricular pacer wires were placed. The pericardial fat was loosely reapproximated in the midline just left and right chest were evacuated. Right chest had been opened on opening the chest. At the apex of the lung there was air leak from the large bulla and it was stapled. Mechanical pleurodesis was performed . The sternum was closed with wires. Fascia was closed. Subcutaneous tissue was closed. Skin was closed. Dermabond was placed. The needle and sponge counts reported as correct and the patient was taken to the ICU in stable condition. TRANSINT:[id number] Voice Confirmation ID: [id number] DOCUMENT ID: [id number] PROSPER POSEY MD at 1309 CC: [id number] READ MD [id number] DICTATION DATE: 08/04/20 1606 APPLICATIONS SALES REPRESENTATIVE: 08/05/20 0151 ADM IN [place] [address] [place] [id number]
--- NOTE | 2020-08-05 13:26 | NUR ---
DR. ESPINAL NOTIFIED OF XRAY RESULTS. ORDERS RECEIVED. WANTS MAXIPIME TO BE STARTED AFTER LAST DOSE OF ZINACEF.
--- NOTE | 2020-08-05 13:51 | NUR ---
CALL RECEIVED FROM DAIANA. PASSCODE VERIFIED. WAS TOLD NO CHANGES SINCE LAST TIME SHE CALLED. STILL TRYING TO GET FEVER DOWN AND STARTED ANTIBIOTICS.
--- NOTE | 2020-08-05 14:16 | NUR ---
DR. POSEY UPDATED ON PT STATUS AT. HR 107, BP 113/59, PA 37/22, CI/CO 3.3/7.3. OFF CLEVIPREX AND NITRO. HOLD SCHEDULED LOPRESSOR DOSE PER DR. POSEY. WILL CONTINUE TO MONITOR.
[2020-08-05 17:09] LABS: ACID FAST SMEAR Negative (()); AFB SPECIMEN PROCESSING Concentration (())
--- NOTE | 2020-08-05 17:21 | NUR ---
CALL RECEIVED FROM DAIANA. PASSCODE VERIFIED. NO CHANGES SINCE WE LAST SPOKE ON THE PHONE.
--- NOTE | 2020-08-05 17:40 | NUR ---
PA PRESSURE 44/26. DR. POSEY MADE AWARE. NO NEW ORDERS RECEIVED AT THIS TIME. WILL CONTINUE TO MONITOR.
[2020-08-06] VITALS (72 sets, daily range): BP systolic 102–152; BP diastolic 48–90
[2020-08-06 03:50] LABS: BASOPHILS 0.2 % (0-2); EOSINOPHILS 0.2 % (0-7); HEMATOCRIT 31.6 % (42.0-54.0); HEMOGLOBIN 10.2 g/dL (13.5-17.5); IMMATURE GRANULOCYTES 0.2 % (0-5); LYMPHOCYTE ABS# 1.35 10x3/uL (1.32-3.57); LYMPHOCYTES 9.3 % (15-50); MCH 27.5 pg (26.0-34.0); MCHC 32.3 g/dL (31.0-37.0); MCV 85.2 fL (80.0-100.0); MEAN PLATELET VOLUME 11.4 fL (7.4-10.4); MONOCYTES 9.2 % (2-11); NEUTROPHIL ABS# 11.76 10x3/uL (1.78-5.38); NEUTROPHILS 80.9 % (40-80); PLATELET COUNT 132 10x3/uL (130-400); RBC 3.71 10x6/uL (4.20-6.10); RDW 13.9 % (11.5-14.5)
[2020-08-06 03:53] LABS: WBC 14.5 10x3/uL (4.8-10.8)
[2020-08-06 04:06] LABS: ALBUMIN 2.4 g/dL (3.4-5.0); ALKALINE PHOSPHATASE 30 U/L (30-120); ALT (SGPT) 30 U/L (10-68); BILIRUBIN - TOTAL 0.72 mg/dL (0.2-1.3); CALC OSMOLALITY 296 mosm/kg (275-300); CARBON DIOXIDE 23.2 mmol/L (21.0-32.0); CHLORIDE - SERUM 111 mmol/L (98-107); CREATININE - SERUM 0.9 mg/dL (0.6-1.3); GLUCOSE 132 mg/dL (74-106); PHOSPHOROUS 5.3 mg/dL (2.5-4.9); POTASSIUM - SERUM 3.6 mmol/L (3.5-5.1); PROTEIN - SERUM 5.1 g/dL (6.4-8.2); SODIUM 146 mmol/L (136-145); UREA NITROGEN 25 mg/dL (7-18); eGFR NON AFRICAN AMERICAN 89 mL/min (90-120)
[2020-08-06 04:27] LABS: CALCIUM 6.6 mg/dL (8.5-10.1)
[2020-08-06 10:22] LABS: ANION GAP 10.7 mmol/L (8-16); CARBON DIOXIDE 27.5 mmol/L (21.0-32.0)
[2020-08-06 10:23] LABS: POTASSIUM - SERUM 4.2 mmol/L (3.5-5.1)
[2020-08-06 11:02] LABS: CALCIUM 8.2 mg/dL (8.5-10.1); MAGNESIUM - SERUM 2.3 mg/dL (1.8-2.4)
[2020-08-07] VITALS (66 sets, daily range): BP systolic 99–143; BP diastolic 48–68
[2020-08-07 04:23] LABS: ALBUMIN 2.2 g/dL (3.4-5.0); ANION GAP 11.5 mmol/L (8-16); BILIRUBIN - TOTAL 0.63 mg/dL (0.2-1.3); CALCIUM 7.1 mg/dL (8.5-10.1); CARBON DIOXIDE 28.9 mmol/L (21.0-32.0); CREATININE - SERUM 1.1 mg/dL (0.6-1.3); MAGNESIUM - SERUM 2.1 mg/dL (1.8-2.4); POTASSIUM - SERUM 4.4 mmol/L (3.5-5.1); PROTEIN - SERUM 5.4 g/dL (6.4-8.2)
[2020-08-07 04:25] LABS: MCH 27.3 pg (26.0-34.0); MCV 85.5 fL (80.0-100.0); MEAN PLATELET VOLUME 10.8 fL (7.4-10.4); RDW 13.9 % (11.5-14.5); WBC 14.5 10x3/uL (4.8-10.8)
[2020-08-07 04:28] LABS: HEMATOCRIT 24.7 % (42.0-54.0); HEMOGLOBIN 7.9 g/dL (13.5-17.5); RBC 2.89 10x6/uL (4.20-6.10)
[2020-08-07 11:55] LABS: BASOPHILS 0.3 % (0-2); EOSINOPHILS 1.2 % (0-7); HEMATOCRIT 27.5 % (42.0-54.0); HEMOGLOBIN 8.7 g/dL (13.5-17.5); IMMATURE GRANULOCYTES 1.2 % (0-5); LYMPHOCYTES 7.1 % (15-50); MCH 27.1 pg (26.0-34.0); MCHC 31.6 g/dL (31.0-37.0); MCV 85.7 fL (80.0-100.0); MEAN PLATELET VOLUME 11.5 fL (7.4-10.4); MONOCYTES 11.3 % (2-11); NEUTROPHIL ABS# 15.66 10x3/uL (1.78-5.38); NEUTROPHILS 78.9 % (40-80); RBC 3.21 10x6/uL (4.20-6.10); RDW 13.9 % (11.5-14.5)
[2020-08-07 11:57] LABS: PLATELET COUNT 150 10x3/uL (130-400); WBC 19.8 10x3/uL (4.8-10.8)
--- NOTE | 2020-08-07 12:11 | NUR ---
Nutrition Follow-up: POD 3 AVR, CABG, Maze procedure. Remains intubated/sedated. Receiving Diprivan running at 27.6 mL/hr; provides 729 kcal daily. Nursing reports active BS. Diet: NPO Wt: 226# (08/07) Labs noted: Glu 143, Ca 7.1, Alb 2.2 Meds noted: Lasix, Protonix, Diprivan, electrolyte protocol -If pt remains intubated, rec initiate TF when medically feasible. Rec Pulmocare @ 45 mL/hr; provides 1620 kcal (68% est needs) & 68 g protein (68-85% est needs) daily. Diprivan currently providing 729 kcal (30% est needs) daily. -RD follow-up: 08/10
[2020-08-08] VITALS (83 sets, daily range): BP systolic 118–148; BP diastolic 43–65
[2020-08-08 05:22] LABS: HEMATOCRIT 27.4 % (42.0-54.0); HEMOGLOBIN 8.9 g/dL (13.5-17.5); MCH 27.6 pg (26.0-34.0); MCHC 32.5 g/dL (31.0-37.0); MCV 84.8 fL (80.0-100.0); MEAN PLATELET VOLUME 11.2 fL (7.4-10.4); RBC 3.23 10x6/uL (4.20-6.10); WBC 24.9 10x3/uL (4.8-10.8)
[2020-08-08 05:32] LABS: ALBUMIN 2.1 g/dL (3.4-5.0); ALKALINE PHOSPHATASE 63 U/L (30-120); ALT (SGPT) 25 U/L (10-68); BILIRUBIN - TOTAL 0.72 mg/dL (0.2-1.3); CALCIUM 7.3 mg/dL (8.5-10.1); CARBON DIOXIDE 26.5 mmol/L (21.0-32.0); CHLORIDE - SERUM 104 mmol/L (98-107); GLUCOSE 181 mg/dL (74-106); PROTEIN - SERUM 5.5 g/dL (6.4-8.2); SODIUM 142 mmol/L (136-145); eGFR NON AFRICAN AMERICAN 79 mL/min (90-120)
[2020-08-08 05:33] LABS: CALC OSMOLALITY 299 mosm/kg (275-300); POTASSIUM - SERUM 3.6 mmol/L (3.5-5.1); UREA NITROGEN 46 mg/dL (7-18)
--- NOTE | 2020-08-08 10:32 | NUR ---
0945-DR ESPINAL /TATY /MARLEY AT BEDSIDE-MEDIASTINAL CHEST TUBES REMOVED BY DR POSEY-TOLERATED WELL-DIPRIVAN DECREASED TO 45MCG DR ESPINAL AT BEDSIDE-VENT CHANGES DONE WITH RT-DIPRIVAN DECREASED TO 40MCG DR JIMENEZ AT BEDSIDE-PT TURNED TO L SIDE-FACIAL GRIMACE-INFORMED OF RECTAL FINDINGS FROM INSTALLATION SUPERVISOR REPORT-SAME OBSERVED AND NOTED-H AND H STABLE-CONTINUE TO MONITOR-DIPRIVAN DECREASED TO 35MCG-CLIVIPREX AT 3MG AND NITRO AT 10MCG-ABP 150 SYS
[2020-08-08 12:12] LABS: POTASSIUM - SERUM 3.5 mmol/L (3.5-5.1)
[2020-08-08 12:13] LABS: MAGNESIUM - SERUM 2.7 mg/dL (1.8-2.4)
--- NOTE | 2020-08-08 12:23 | NUR ---
1231-CUHY-674--LOPRESSOR 5MG IVP-SCHGIVEN--APB DECREASED TOB 114SYS-NTG PLACED ON PAUSE-LAB DRAWN FOR K AND MAG 1223-RETURNED TO SR 90-ABP INCREASED TO 146 SYS NTG RESTARTED AT 10MCG-DIPRIVAN RETURNED TO 40MCG-
--- NOTE | 2020-08-08 12:47 | NUR ---
S/O AT BEDSIDE-ENCOURAGED TO STAY WITH PT UNTIL 1800HR-
--- NOTE | 2020-08-08 14:03 | NUR ---
OGT 16 F PLACED WITHOUT DIFFICULTY-CONFIRMED FOR PLACEMENT WITH AUSCULTATION AT L UPPER QUAD-X 2 NURSES--LIFTING SHEET PLACED AND PT TURNED TO L
[2020-08-08 18:08] LABS: FUNGAL - ASP FLAVUS Negative (Neg:<1:1); FUNGAL - ASP NIGER Negative (Neg:<1:1); FUNGAL - ASPER FUMIGATUS Negative (Neg:<1:1)
--- NOTE | 2020-08-08 18:45 | NUR ---
BLOOD CULTURE-R JUGULAR AND R RADIAL SENT TO LAB- ORDERED
[2020-08-09] VITALS (83 sets, daily range): BP systolic 89–144; BP diastolic 41–69
[2020-08-09 06:08] LABS: ALBUMIN 1.9 g/dL (3.4-5.0); ALKALINE PHOSPHATASE 71 U/L (30-120); ALT (SGPT) 26 U/L (10-68); BILIRUBIN - TOTAL 0.82 mg/dL (0.2-1.3); CALC OSMOLALITY 301 mosm/kg (275-300); CARBON DIOXIDE 30.9 mmol/L (21.0-32.0); CHLORIDE - SERUM 106 mmol/L (98-107); CREATININE - SERUM 0.9 mg/dL (0.6-1.3); GLUCOSE 152 mg/dL (74-106); POTASSIUM - SERUM 3.5 mmol/L (3.5-5.1); PROTEIN - SERUM 5.2 g/dL (6.4-8.2); SODIUM 143 mmol/L (136-145); UREA NITROGEN 51 mg/dL (7-18); eGFR NON AFRICAN AMERICAN 89 mL/min (90-120)
[2020-08-09 06:10] LABS: HEMATOCRIT 26.7 % (42.0-54.0); HEMOGLOBIN 8.6 g/dL (13.5-17.5); LYMPHOCYTE ABS# 1.53 10x3/uL (1.32-3.57); MCH 27.7 pg (26.0-34.0); MCHC 32.2 g/dL (31.0-37.0); MCV 85.9 fL (80.0-100.0); MEAN PLATELET VOLUME 10.8 fL (7.4-10.4); NEUTROPHIL ABS# 16.35 10x3/uL (1.78-5.38); PLATELET COUNT 213 10x3/uL (130-400); RBC 3.11 10x6/uL (4.20-6.10); RDW 14.4 % (11.5-14.5); WBC 22.9 10x3/uL (4.8-10.8)
[2020-08-09 06:45] LABS: EOSINOPHILS 5 % (0-7); LYMPHOCYTES 19 % (15-50); MONOCYTES 2 % (2-11); NEUTROPHILS 71 % (40-80); PLATELET ESTIMATE NORMAL
[2020-08-09 06:46] LABS: ANISOCYTOSIS OCC; TEAR DROP CELLS OCC
--- NOTE | 2020-08-09 09:23 | NUR ---
0715-AFIB [id number]-SUKVOGFRV 5MG IVP GIVEN SCHEDULED-K 3.5-KCL RIDER STARTED PER SCALE-NTG GTT PAUSED AT THIS TIME-ABP 130 SYS-MAG SERUM ORDERED-ABG DRAWN ALREADY ORDERED 0745-MAG LEVEL PENDING-AFIB HR 100-120-NTG REMAINS PAUSED-DR POSEY NOTIFIED FOR ADDITIONAL ORDERS-NO VENT CHANGES AT THIS TIME 0750-RETURN CALL -CORDARONE 150MG BOLUS OVER 10MIN STARTED 0800 CORDARONE GTT AT 1MG/MIN-NOTED SR WITH PAC-103-MAG PENDING 0900-MAG-3.--SR 100 NO PAC'S ABP INCREASED TO 148 SYS -NTG GTT RESUMED AT 25MCG
--- NOTE | 2020-08-09 14:35 | NUR ---
1245-TEMP 243-LYEAG-YKLGYNW SUPP GIVEN 1300-UCAF 135-DR POSEY NOTIFIED-ORDERS RECIEVEED AND NOTED-CORDARONE 150MG BOLUS STARTED 1330-UPDATE CALLED-HR 111 ST TEMP INCREASED TO 102.3-ORDER RECIEVED ADN NOTED 1345-JEANNIE DRG AND TUBING CHANGE IN PROGRESS PER POLICY-JEANNIE DISLODGED-HEMOSTASIS MAINTAINED BP CUFF-TEMP INCREASED TO 102.9-DR POSEY NOTIFIED OF SAME-TYLENOL 650 CRUSHED AND DOWN NGT 1400 LOPRESSOR 2.5 IVP GIVEN -CORDARONE GTT DECREASED TO 0.5MG/MIN --NOTED TEMP INCREASED TO 103-ICEBAGS PLACE TO SHELLEY GROIN HR 116 ST-DR POSEY NOTIFIED ORDER RECIEVED 1435-IBUPROPHEN 400MG PER NGT GIVEN-TEMP 103.3
--- NOTE | 2020-08-09 15:28 | NUR ---
1445-ICEBAGS ROTATED-MOTRIN 400MG NGT-CONFIRMED PLACEMENT WITH GASTRIC ASPIRATE 1515-ICEBAGS ROTATED-URINE C AND S SENT
--- NOTE | 2020-08-09 18:12 | NUR ---
1545-2 20 G R ARM PERIPHERALS OBTAINED- DIRECTED BY DR POSEY-CORDIS REMAINS IN PLACE-ICE TEPID BATH GIVEN- [id number] MEAN BP 57-DR POSEY NOTIFIED -ORDER AND PARAMETER RECIEVED 1700-MARIBETH GTT STARTED AT 0.1- 1800-MEAN BP 78-MARIBETH ON STANDBY-SR 102-TEMP 98.8-TURNED TO L SIDE
[2020-08-10] VITALS (85 sets, daily range): BP systolic 100–160; BP diastolic 44–81
--- NOTE | 2020-08-10 04:50 | NUR ---
AFIB RVR ON MONITOR RATES 130-150 BP 136/71. SPOKE WITH DR. POSEY NEW ORDERS RECEIVED.
[2020-08-10 06:27] LABS: BASOPHILS 0.4 % (0-2); EOSINOPHILS 2.2 % (0-7); HEMATOCRIT 27.5 % (42.0-54.0); HEMOGLOBIN 8.6 g/dL (13.5-17.5); IMMATURE GRANULOCYTES 10.9 % (0-5); LYMPHOCYTE ABS# 1.18 10x3/uL (1.32-3.57); LYMPHOCYTES 6.3 % (15-50); MCHC 31.3 g/dL (31.0-37.0); MCV 86.2 fL (80.0-100.0); MEAN PLATELET VOLUME 10.9 fL (7.4-10.4); MONOCYTES 8.8 % (2-11); NEUTROPHIL ABS# 13.25 10x3/uL (1.78-5.38); NEUTROPHILS 71.4 % (40-80); PLATELET COUNT 221 10x3/uL (130-400); RBC 3.19 10x6/uL (4.20-6.10); RDW 14.9 % (11.5-14.5); WBC 18.6 10x3/uL (4.8-10.8)
[2020-08-10 06:40] LABS: ALBUMIN 1.9 g/dL (3.4-5.0); ALKALINE PHOSPHATASE 75 U/L (30-120); ALT (SGPT) 31 U/L (10-68); BILIRUBIN - TOTAL 1.08 mg/dL (0.2-1.3); CALC OSMOLALITY 309 mosm/kg (275-300); CALCIUM 7.1 mg/dL (8.5-10.1); CARBON DIOXIDE 30.8 mmol/L (21.0-32.0); CHLORIDE - SERUM 108 mmol/L (98-107); CREATININE - SERUM 0.9 mg/dL (0.6-1.3); GLUCOSE 143 mg/dL (74-106); MAGNESIUM - SERUM 3.2 mg/dL (1.8-2.4); PHOSPHOROUS 2.3 mg/dL (2.5-4.9); POTASSIUM - SERUM 3.2 mmol/L (3.5-5.1); PROTEIN - SERUM 5.4 g/dL (6.4-8.2); SODIUM 146 mmol/L (136-145); UREA NITROGEN 59 mg/dL (7-18); eGFR NON AFRICAN AMERICAN 89 mL/min (90-120)
--- NOTE | 2020-08-10 09:48 | NUR ---
0800 ALL IV TUBING CHANGED, PER DR POSEY ANESTHESIA IN ROOM AND L RADIAL ART LINE INSERTED, WAVEFORM PEAKED AND READING 40-50 ABOVE NIBP PRESSURE, [facility]PO[facility] DR [facility]ERS [facility] AND WILL CONTINUE TO TITRATE TO NIPB AT THIS TIME
[2020-08-10 11:09] LABS: FUNGUS STAIN Final report (())
[2020-08-10 11:09] LABS: ALPHA FETOPROTEIN -(TUMOR MRK) 4.8 ng/mL (0.0-8.3)
--- NOTE | 2020-08-10 12:18 | NUR ---
PRIOR TO CVL PLACEMENT BY DR POSEY PT INTO A FIB, DR POSEY IN ROOM AND AWARE, LOPRESSOR GIVEN PER EMAR
--- NOTE | 2020-08-10 12:51 | NUR ---
Nutrition reassessment: Intubated, sedated with propofol @ 35 mcg/kg/min Increased tempurature OGT 08/08/20; Jevity 1.[address] Hu CT removed Wt: 221# Estimated needs: 2393 kcal (PSU 2003b) Pt still intubated, sedated 80-100 gm protein (1.0-1.2 gm/kg) 2393 ml fluid Nutrition diagnosis: Inadequate oral intake R/T intubated AEB TF not at goal rate. Nutrition goals: - Meet at least 75% of estimated nutritional needs with TF - Meet est fluid needs without fluid overload - sTable dry wt Nutrition interventions: Recommend changing TF formula to Pulmocare @ goal rate of 45 ml/hr RDN follow-up: 08/12/20
--- NOTE | 2020-08-10 12:53 | NUR ---
r ij cvl dcd per protocol
--- NOTE | 2020-08-10 14:06 | NUR ---
1330 DR POSEY NOTIFIED OF HR 120-130S, ORDERS FOR LOPRESSOR RECIEVED, GIVEN PER EMAR, CURRENTLY NSR 94
[2020-08-11] VITALS (80 sets, daily range): BP systolic 104–174; BP diastolic 44–123
[2020-08-11 03:36] LABS: HEMATOCRIT 25.1 % (42.0-54.0); HEMOGLOBIN 8.1 g/dL (13.5-17.5); MCH 26.8 pg (26.0-34.0); MCHC 32.4 g/dL (31.0-37.0); MCV 82.6 fL (80.0-100.0); MEAN PLATELET VOLUME 8.2 fL (7.4-10.4); RBC 3.03 10x6/uL (4.20-6.10); RDW 14.2 % (11.5-14.5); WBC 23.3 10x3/uL (4.8-10.8)
[2020-08-11 03:57] LABS: ALBUMIN 1.7 g/dL (3.4-5.0); ALKALINE PHOSPHATASE 77 U/L (30-120); ALT (SGPT) 30 U/L (10-68); BILIRUBIN - TOTAL 0.95 mg/dL (0.2-1.3); CALC OSMOLALITY 306 mosm/kg (275-300); CARBON DIOXIDE 31.7 mmol/L (21.0-32.0); CHLORIDE - SERUM 110 mmol/L (98-107); CREATININE - SERUM 0.8 mg/dL (0.6-1.3); GLUCOSE 135 mg/dL (74-106); POTASSIUM - SERUM 3.5 mmol/L (3.5-5.1); PROTEIN - SERUM 5.2 g/dL (6.4-8.2); SODIUM 147 mmol/L (136-145); UREA NITROGEN 50 mg/dL (7-18); eGFR NON AFRICAN AMERICAN > 90 mL/min (90-120)
[2020-08-11 03:59] LABS: CALCIUM 6.9 mg/dL (8.5-10.1)
--- NOTE | 2020-08-11 07:35 | NUR ---
SHIFT REPORT RECEIVED. ON VENT, ETT 8.0, 24 LIP LINE. A/C 16/500/60/8. SEDATION PLACED ON HOLD FOR 15MINUTES. PT OPENS EYES BUT DOES NOT FOLLOW COMMANDS. CVL TO LEFT SUBCLAVIAN WITH PROPOFOL, PLASMOLYTE AND AMIODARONE. SEE IV FLOWSHEET FOR RATES. LEFT RADIAL JEANNIE SECURED IN PLACE WITH WRIST PROTECTOR. MIDSTERNAL INCISION CARMELO, EDGES WELL APPROXIMATED. SUBTERNAL CT TO 20CM SUCTION, NO AIR LEAK NOTED, ZACH DRAIN IN PLACE. JANE CATHETER SECURED TO LEFT THIGH. RLE HARVEST SITES COVERED WITH 4X4, NAINA'S AND SCD'S IN PLACE. WRIST RESTRAINTS IN PLACE PER ORDER. SAFETY MEASURES IN PLACE. WILL CONTINUE TO MONITOR.
--- NOTE | 2020-08-11 09:30 | NUR ---
SEDATION DECREASED AT THIS TIME PER DR. WOOTEN'S ORDER. PROPOFOL INFUSING AT 25MCG/KG/MIN. WILL CONTINUE TO DECREASE TOLERATED FOR CPAP TRIAL.
--- NOTE | 2020-08-11 11:05 | NUR ---
BEGAN 30 MIN PS TRIAL 15/8/16% AT 1015 HRS. ENDED TRIALS AT 1045 HRS. TRIAL ENDED BECAUSE THE SPECIFIED TIME WAS REACHED. TOTAL TIME: 30MIN.
--- NOTE | 2020-08-11 11:45 | NUR ---
DR. CARIAS NOTIFIED OF CHEST X-RAY RESULTS.
--- NOTE | 2020-08-11 13:27 | OP ---
PATIENT NAME: QUIRINO LOPEZ MEDICAL RECORD: [id number] :51 LOCATION:D.CVI D.CV02 ADMISSION DATE:08/03/20 SURGEON: PROSPER POSEY MD DATE OF OPERATION: 08/10/2020 SURGEON: Prosper Posey MD PROCEDURE: Left subclavian triple-lumen catheter. INDICATION: Ventilator dependent. DESCRIPTION OF PROCEDURE: With the patient supine in the intensive care and the heart rate, blood pressure, and pulse oximetry monitored. Left chest was sterilely prepped and draped. A 1% Xylocaine was used for local anesthetic. The left subclavian vein was cannulated. Guidewire was passed easily across the midline. The skin incision was enlarged. Dilator was passed. Triple lumen catheter was passed to 20 cm. Good blood return was noted in all 3 lumens. They were flushed with saline and then the catheter was sutured into place. X-ray pending. TRANSINT:[id number] Voice Confirmation ID: [id number] DOCUMENT ID: [id number] PROSPER POSEY MD at 1327 CC: [id number] DICTATION DATE: 08/10/20 1123 LOCOMOTIVE CRANE ENGINEER: 08/10/20 1505 ADM IN [id number] [place] [address]
--- NOTE | 2020-08-11 14:07 | EC ---
PATIENT:QUIRINO LOPEZ DATE OF SERVICE: 08/03/20 SEX: M MEDICAL RECORD: [id number] DATE OF : 51 LOCATION:[place] [address] AGE OF PATIENT: 65 ADMISSION DATE: 08/03/20 REFERRING PHYSICIAN: INTERPRETING PHYSICIAN: LIZZY READ MD ECHOCARDIOGRAM REPORT ECHO CHARGES 4 ECHO COMPLETE Date: 08/10/20 CLINICAL DIAGNOSIS: AI ECHOCARDIOGRAPHIC MEASUREMENTS (adult normal given) AC root (d.<3.7cm) 2.9 cm LV Septum d (<1.2 cm> 1.0 cm Valve Excursion 1.2 cm LV Septum (systole) 1.2 cm Left Atria (s.<4.0cm> 4.1 cm LVPW d(<1.2cm) 0.9 cm RV (d.<2.3cm) 2.8 cm LVPW (sytole) 1.3 cm LV diastole(<5.6CM) 6.5 cm MV E-F(>70mm/sec) cm LV systole 4.9 cm LVOT Diameter 1.8 cm MV exc.(>10mm) 1.5 cm Est.ejection fraction (50-75%) % DOPPLER: LVIT cm/sec A 80 cm/sec E 89 cm/sec LA cm/sec RVSP 36 mmHg LVOT 147 cm/sec AOP1/2T m/s Asc. Ao 434 cm/sec RVOT 92 cm/sec RA cm/sec PA 129 cm/sec AV Gradient Peak 75.3 mmHg AV Mean 37.7 mmHg AV Area 0.9 cm MV Gradient Peak 3.4 mmHg MV Mean 2.3 mmHg MV Area cm COMMENTS: Tea Bag Machine Tender: Mynor LINDO Turbo Operator: 3 Dr. Crowell TAPE# Pericardial Effusion N DATE OF SERVICE: Adequate 2D, color flow imaging, spectral Doppler, and M-Mode. No LVH. LV internal dimensions are normal. Hypokinesis of the septum consistent with recent postop valve replacement. LV function lower limits of normal to mildly reduced 45-50%. Prosthetic aortic valve was noted. Acceptable Doppler velocity. No significant AI. Left atrium mildly dilated 4.1 cm. Mitral valve shows no prolapse. Mild MR. Right-sided chambers appear grossly normal. Mild TR. ECHOCARDIOGRAM REPORT [id number] QUIRINO LOPEZ TRANSINT:[id number] Voice Confirmation ID: [id number] DOCUMENT ID: [id number] LIZZY READ MD at 1407 CC: [id number] DICTATION DATE: 08/10/20 164 SUBMARINE ELEMENT COORDINATOR: 08/10/20 2249 ADM IN [facility] [address] [id number]
[2020-08-11 15:00] LABS: BILIRUBIN NEGATIVE (NEGATIVE); KETONE NEGATIVE (NEGATIVE); NITRITE NEGATIVE (NEGATIVE); UROBILINOGEN NORMAL mg/dL (< 2)
--- NOTE | 2020-08-11 15:40 | NUR ---
PT WENT INTO AFIB WITH RATES FROM 114-130. DR. POSEY NOTIFIED. ORDERS RECEIVED. LOPRESSOR 2.5MG IV X 1.
[2020-08-12] VITALS (25 sets, daily range): BP systolic 115–159; BP diastolic 49–74
[2020-08-12 03:29] LABS: HEMATOCRIT 25.1 % (42.0-54.0); MCH 26.6 pg (26.0-34.0); MCHC 32.1 g/dL (31.0-37.0); MEAN PLATELET VOLUME 8.3 fL (7.4-10.4); RBC 3.02 10x6/uL (4.20-6.10); RDW 14.2 % (11.5-14.5); WBC 20.1 10x3/uL (4.8-10.8)
[2020-08-12 03:38] LABS: ALBUMIN 1.6 g/dL (3.4-5.0); ALKALINE PHOSPHATASE 87 U/L (30-120); ALT (SGPT) 27 U/L (10-68); BILIRUBIN - TOTAL 0.92 mg/dL (0.2-1.3); CALC OSMOLALITY 312 mosm/kg (275-300); CALCIUM 7.1 mg/dL (8.5-10.1); CARBON DIOXIDE 30.8 mmol/L (21.0-32.0); CHLORIDE - SERUM 112 mmol/L (98-107); CREATININE - SERUM 0.8 mg/dL (0.6-1.3); GLUCOSE 123 mg/dL (74-106); POTASSIUM - SERUM 3.7 mmol/L (3.5-5.1); PROTEIN - SERUM 5.3 g/dL (6.4-8.2); SODIUM 150 mmol/L (136-145); UREA NITROGEN 52 mg/dL (7-18); eGFR NON AFRICAN AMERICAN > 90 mL/min (90-120)
--- NOTE | 2020-08-12 08:26 | NUR ---
CALL RECEIVED FROM DAIANA. PASSCODE VERIFIED. WAS TOLD PT STABLE. NO SIGNIFICANT CHANGES FROM YESTERDAY.
--- NOTE | 2020-08-12 09:38 | NUR ---
DR. POSEY IN UNIT. ORDERED TO HOLD COREG AND START 2.5MG IV LOPRESSOR Q 4HR.
--- NOTE | 2020-08-12 10:43 | NUR ---
Nutrition Follow-up: POD 8. Intubated/sedated. Pulmocare @ 30 mL/hr with H2O flushes 10 mL q 2 hrs this AM. Na 150; ok to increase flushes per Dr. Campbell. Diet: Pulmocare - goal rate 45 mL/hr Wt: 219# (08/12) Labs noted: Na 150, Glu 123, Ca 7.1, Alb 1.6 Meds noted: Humalog, Protonix -Increase TF to goal rate as tolerated. -Increase H2O flushes to 25 mL q hr; will monitor labs & fluid status. -Monitor wt. -RD follow-up: 08/14
--- NOTE | 2020-08-12 15:26 | NUR ---
PT WENT BACK INTO AFIB ABOUT 15MIN AGO. MESSAGE SENT TO DR. POSEY. HR 100-120S. WAITING ON REPLY.
--- NOTE | 2020-08-12 16:26 | NUR ---
ORDERS RECEIVED FROM DR. POSEY. 12 LEAK EKG AND TO GIVE 1UNIT PRBC'S.
--- NOTE | 2020-08-12 17:06 | NUR ---
EKG RESULTS REPORTED TO DR. POSEY. ORDERED TO STOP AMIODARONE 200MG TAB AND START SOTOLOL 80MG TAB PER NG. LOPRESSOR TO REMAIN THE SAME AT THIS TIME.
--- NOTE | 2020-08-12 17:56 | NUR ---
RIGHT ARM TIGHT DUE TO SWELLING. BP CUFF OF AT THIS TIME TO ALLOW ARM TO REST. SMALL BLISTER NOTED ON INNER SIDE OF FOREARM. ARM ELEVATED ON PILLOW. WILL CONTINUE TO MONITOR.
[2020-08-13] VITALS (25 sets, daily range): BP systolic 100–160; BP diastolic 55–559
[2020-08-13 04:28] LABS: HEMATOCRIT 28.6 % (42.0-54.0); HEMOGLOBIN 9.3 g/dL (13.5-17.5); MCH 27.4 pg (26.0-34.0); MCHC 32.7 g/dL (31.0-37.0); MCV 83.9 fL (80.0-100.0); MEAN PLATELET VOLUME 8.5 fL (7.4-10.4); RBC 3.41 10x6/uL (4.20-6.10); RDW 14.6 % (11.5-14.5); WBC 27.9 10x3/uL (4.8-10.8)
[2020-08-13 04:53] LABS: ALBUMIN 1.6 g/dL (3.4-5.0); ALKALINE PHOSPHATASE 101 U/L (30-120); ALT (SGPT) 29 U/L (10-68); BILIRUBIN - TOTAL 0.76 mg/dL (0.2-1.3); CALC OSMOLALITY 318 mosm/kg (275-300); CALCIUM 7.6 mg/dL (8.5-10.1); CARBON DIOXIDE 29.6 mmol/L (21.0-32.0); CHLORIDE - SERUM 115 mmol/L (98-107); CREATININE - SERUM 0.8 mg/dL (0.6-1.3); GLUCOSE 121 mg/dL (74-106); POTASSIUM - SERUM 4.2 mmol/L (3.5-5.1); PROTEIN - SERUM 5.4 g/dL (6.4-8.2); SODIUM 153 mmol/L (136-145); UREA NITROGEN 52 mg/dL (7-18); eGFR NON AFRICAN AMERICAN > 90 mL/min (90-120)
--- NOTE | 2020-08-13 07:51 | NUR ---
CALL RECEIVED FROM DAIANA. PASSCODE VERIFIED. TOLD THAT PT IS STILL ON SAME VENT SETTINGS YESTERDAY. NO FLUIDS RUNNING AT THIS TIME. OGT WITH PULMOCARE AT 40ML/HR. WILL BE BY TO SEE PATIENT LATER TODAY.
--- NOTE | 2020-08-13 08:48 | NUR ---
CURRENTLY ON CPAP TRIAL. AM MEDS GIVEN. WILL CONTINUE TO MONITOR.
--- NOTE | 2020-08-13 09:45 | NUR ---
DR. WOOTEN AND DR. CARIAS IN UNIT. DR. WOOTEN INFORMED THAT VERSED IS BEING GIVEN ALMOST EVERY 2HR PRN. BUT PT STILL SEEMS UNCOMFORTABLE. ORDERED FENTANYL DRIP TO BE INITIATED. SEE E-MAR FOR RATE. SODIUM REMAINS ELEVATED. INSTRUCTED BY DR. WOOTEN TO INCREASE H2O FLUSH ON TUBE FEED TO 200ML Q 3HR. ALSO MADE AWARE THAT TEMPERATURE IN TRENDING UP. CURRENTLY 100.2. WILL CONTINUE TO MONITOR.
--- NOTE | 2020-08-13 12:33 | NUR ---
SON AT BEDSIDE. PT OPENING EYES. BP ELEVATED TO 160S. SCHEDULED LOPRESSOR GIVEN. FIO2 AT 50%. WILL CONTINUE TO MONITOR.
--- NOTE | 2020-08-13 16:51 | NUR ---
PT APPEARS AGITATED AND RESTLESS. VERSED GIVEN PER ORDER. WILL CONTINUE TO MONITOR.
--- NOTE | 2020-08-13 18:31 | NUR ---
PT AWAKE. BP 161/71. APRESOLINE GIVEN PER ORDER.
[2020-08-14] VITALS (24 sets, daily range): BP systolic 107–176; BP diastolic 52–89
[2020-08-14 05:07] LABS: ALBUMIN 1.5 g/dL (3.4-5.0); ALKALINE PHOSPHATASE 104 U/L (30-120); ALT (SGPT) 34 U/L (10-68); BILIRUBIN - TOTAL 0.69 mg/dL (0.2-1.3); CALC OSMOLALITY 308 mosm/kg (275-300); CALCIUM 7.4 mg/dL (8.5-10.1); CARBON DIOXIDE 31.8 mmol/L (21.0-32.0); CHLORIDE - SERUM 114 mmol/L (98-107); CREATININE - SERUM 0.9 mg/dL (0.6-1.3); GLUCOSE 143 mg/dL (74-106); POTASSIUM - SERUM 3.8 mmol/L (3.5-5.1); PROTEIN - SERUM 5.5 g/dL (6.4-8.2); SODIUM 150 mmol/L (136-145); UREA NITROGEN 39 mg/dL (7-18); eGFR NON AFRICAN AMERICAN 89 mL/min (90-120)
--- NOTE | 2020-08-14 08:32 | OP ---
PATIENT NAME: QUIRINO LOPEZ MEDICAL RECORD: [id number] :51 LOCATION:DJEFF D.CV02 ADMISSION DATE:08/03/20 SURGEON: LIZZY READ MD DATE OF OPERATION: 08/03/2020 PROCEDURES: Left heart catheterization, selective coronary angiography, aortic root injection, right femoral artery approach. CATHETERS: 5-pig and AR catheter as well as a JL6. The procedure was well tolerated. The patient returned to the taylor. Sheath removed. ExoSeal device was placed. FINDINGS: Left ventriculography 30-degree CODY view shows global hypo with EF reduced, estimated 35%. AORTIC ROOT INJECTION: Aortic root injection was performed to assess aortic insufficiency. This appears to be severe with a dilated aortic root as well. CORONARY ANATOMY: LEFT MAIN: Left main is free of disease. LAD: Free of disease in the diagonal system. CIRCUMFLEX: Circumflex is free of disease in the marginal system. RIGHT CORONARY ARTERY: Anterior takeoff, free of disease. IMPRESSION: Severe atrial fibrillation, decreased function. No significant obstructive coronary artery disease. We will increase afterload reduction. We will ask Dr. Campbell to see concerning his aortic root insufficiency. TRANSINT:[id number] Voice Confirmation ID: [id number] DOCUMENT ID: [id number] 08/12/2020 Edited for inverter and clipper error, dmm. LIZZY READ MD at 0832 CC: [id number] DICTATION DATE: 08/03/20 1001 GAME AGENT: 08/03/20 1330 ADM IN [id number] [place] [address]
[2020-08-14 08:51] LABS: HEMATOCRIT 30.8 % (42.0-54.0); HEMOGLOBIN 9.7 g/dL (13.5-17.5); MCH 26.5 pg (26.0-34.0); MCHC 31.4 g/dL (31.0-37.0); MCV 84.5 fL (80.0-100.0); MEAN PLATELET VOLUME 8.7 fL (7.4-10.4); PLATELET COUNT 290 10x3/uL (130-400); RBC 3.65 10x6/uL (4.20-6.10); RDW 14.8 % (11.5-14.5); WBC 27.8 10x3/uL (4.8-10.8)
--- NOTE | 2020-08-14 11:40 | NUR ---
1115: EXTUBATED AND PLACED ON O2 6LPM BY NC. 1117: CHANGED TO HIGH FLOW CANNULA. SPO2 84%. 1120: PLACED ON BIPAP. FIO2 100%.
--- NOTE | 2020-08-14 12:32 | NUR ---
Nutrition Reassessment/Follow-up: POD 10. Extubated this AM. Nursing reports hypoactive BS and -BM since surgery. Discussed in IDT rounds. Colace & Reglan started. Wt: 220# (08/14)IBW: 178# Labs noted: Na 150, Glu 143, Ca 7.4, Alb 1.5 Meds noted: Florajen, Protonix, Reglan, Colace, D5W @ KVO, electrolyte protocol Est needs: 8747-6366 kcal/day (25-30 kcal/kg IBW) 80-95 g protein/day (1-1.2 g/kg IBW) 6834-0424 mL fluid/day (1 mL/kcal) or per MD Nutrition Diagnosis: -Inadequate energy intake R/T recent extubation AEB NPO status. Nutrition Goals: -Tolerate diet advancement within 24-48 hrs. -Meet est fluid needs without fluid overload. -Stable dry wt. Nutrition Intervention: -Rec advance diet as tolerated as medically feasible pending ST eval. -RD follow-up: 08/17
[2020-08-15] VITALS (24 sets, daily range): BP systolic 110–160; BP diastolic 62–94
[2020-08-15 05:46] LABS: HEMATOCRIT 29.9 % (42.0-54.0); HEMOGLOBIN 9.5 g/dL (13.5-17.5); MCH 26.8 pg (26.0-34.0); MCHC 31.9 g/dL (31.0-37.0); MCV 83.9 fL (80.0-100.0); MEAN PLATELET VOLUME 8.4 fL (7.4-10.4); PLATELET COUNT 272 10x3/uL (130-400); RBC 3.56 10x6/uL (4.20-6.10); RDW 14.9 % (11.5-14.5); WBC 24.3 10x3/uL (4.8-10.8)
[2020-08-15 05:53] LABS: ALBUMIN 1.5 g/dL (3.4-5.0); ALKALINE PHOSPHATASE 106 U/L (30-120); BILIRUBIN - TOTAL 0.87 mg/dL (0.2-1.3); CALC OSMOLALITY 313 mosm/kg (275-300); CALCIUM 7.7 mg/dL (8.5-10.1); CARBON DIOXIDE 28.8 mmol/L (21.0-32.0); CREATININE - SERUM 0.7 mg/dL (0.6-1.3); GLUCOSE 125 mg/dL (74-106); POTASSIUM - SERUM 3.8 mmol/L (3.5-5.1); PROTEIN - SERUM 5.7 g/dL (6.4-8.2); SODIUM 154 mmol/L (136-145); UREA NITROGEN 36 mg/dL (7-18); eGFR NON AFRICAN AMERICAN > 90 mL/min (90-120)
[2020-08-15 05:54] LABS: ALT (SGPT) 47 U/L (10-68); CHLORIDE - SERUM 118 mmol/L (98-107)
--- NOTE | 2020-08-15 06:25 | NUR ---
CONTACTED DR POSEY REGARDING PT GOING INTO AFIB WITH HR BETWEEN 115-135, CURRENT VITAL SIGNS AND LABS REVIEWED, ORDERS FOR 20 MEQ POTASSIUM IV AND 2.5 LOPRESSOR GIVEN AND ENTERED. DR POSEY REQUESTED A CALL BACK IF PT IS STILL IN AFIB 30 MINS AFTER LOPRESSOR GIVEN.
[2020-08-15 06:35] LABS: LYMPHOCYTES 27 % (15-50); NEUTROPHILS 73 % (40-80); PLATELET ESTIMATE NORMAL
--- NOTE | 2020-08-15 12:42 | NUR ---
1215: DR. WOOTEN PHONED ME TO DISCUSS IVF ORDERS AND POSSIBILITY OF DROPPING AND NGT AND STARTING ON FREE H2O Q 4 HOURS. 1220: OKAYED NGT PLACEMENT WITH DR. POSEY. 1225: #14FR [place] SUMP INSERTED WITHOUT DIFFICULTY VIA R NARE. POSITIVE PLACEMENT VERIFIED BY AUSCULTATION BY 2 NURSES.
[2020-08-16] VITALS (23 sets, daily range): BP systolic 125–166; BP diastolic 56–90
[2020-08-16 05:51] LABS: BASOPHILS 0.4 % (0-2); EOSINOPHILS 2.7 % (0-7); HEMATOCRIT 28.4 % (42.0-54.0); HEMOGLOBIN 9.1 g/dL (13.5-17.5); LYMPHOCYTES 3.5 % (15-50); MCH 26.9 pg (26.0-34.0); MCHC 32.1 g/dL (31.0-37.0); MEAN PLATELET VOLUME 8.4 fL (7.4-10.4); MONOCYTES 6.4 % (2-11); PLATELET COUNT 289 10x3/uL (130-400); RBC 3.38 10x6/uL (4.20-6.10); RDW 14.9 % (11.5-14.5); WBC 22.3 10x3/uL (4.8-10.8)
[2020-08-16 06:05] LABS: ALBUMIN 1.5 g/dL (3.4-5.0); ALKALINE PHOSPHATASE 101 U/L (30-120); ALT (SGPT) 51 U/L (10-68); CALC OSMOLALITY 312 mosm/kg (275-300); CALCIUM 7.5 mg/dL (8.5-10.1); CARBON DIOXIDE 27.3 mmol/L (21.0-32.0); CREATININE - SERUM 0.7 mg/dL (0.6-1.3); GLUCOSE 116 mg/dL (74-106); POTASSIUM - SERUM 3.7 mmol/L (3.5-5.1); PROTEIN - SERUM 5.7 g/dL (6.4-8.2); SODIUM 153 mmol/L (136-145); UREA NITROGEN 34 mg/dL (7-18); eGFR NON AFRICAN AMERICAN > 90 mL/min (90-120)
[2020-08-16 06:33] LABS: CHLORIDE - SERUM 117 mmol/L (98-107)
--- NOTE | 2020-08-16 12:49 | NUR ---
1230: L RADIAL ARTERIAL LINE DC'D. MANUAL PRESSURE HELD UNTIL BLEEDING STOPPED. SITE DRESSED WITH 2X2 AND TEGADERM.
[2020-08-17] VITALS (24 sets, daily range): BP systolic 112–162; BP diastolic 62–86
[2020-08-17 05:11] LABS: BASOPHILS 0.6 % (0-2); EOSINOPHILS 2.2 % (0-7); HEMATOCRIT 28.4 % (42.0-54.0); LYMPHOCYTES 4.9 % (15-50); MCH 26.9 pg (26.0-34.0); MCHC 31.8 g/dL (31.0-37.0); MCV 84.5 fL (80.0-100.0); MEAN PLATELET VOLUME 8.6 fL (7.4-10.4); MONOCYTES 6.5 % (2-11); NEUTROPHILS 85.8 % (40-80); PLATELET COUNT 316 10x3/uL (130-400); RBC 3.36 10x6/uL (4.20-6.10); RDW 15.5 % (11.5-14.5); WBC 19.6 10x3/uL (4.8-10.8)
[2020-08-17 05:21] LABS: ALBUMIN 1.5 g/dL (3.4-5.0); ALKALINE PHOSPHATASE 119 U/L (30-120); ALT (SGPT) 61 U/L (10-68); BILIRUBIN - TOTAL 0.67 mg/dL (0.2-1.3); CALC OSMOLALITY 295 mosm/kg (275-300); CALCIUM 7.5 mg/dL (8.5-10.1); CARBON DIOXIDE 27.4 mmol/L (21.0-32.0); CHLORIDE - SERUM 114 mmol/L (98-107); CREATININE - SERUM 0.7 mg/dL (0.6-1.3); GLUCOSE 125 mg/dL (74-106); POTASSIUM - SERUM 3.5 mmol/L (3.5-5.1); PROTEIN - SERUM 5.9 g/dL (6.4-8.2); SODIUM 145 mmol/L (136-145); UREA NITROGEN 30 mg/dL (7-18); eGFR NON AFRICAN AMERICAN > 90 mL/min (90-120)
--- NOTE | 2020-08-17 10:31 | NUR ---
URINE COLLECTED FROM JANE CATHETER PER ORDER.
--- NOTE | 2020-08-17 11:14 | NUR ---
Nutrition Follow-up: Pulmocare running @ 20 mL/hr + H2O flushes 100 mL q 4 hrs at time of visit this AM. Not ready for PO intake per ORTHOPEDIC PHYSICIAN ASSISTANT. Discussed in IDT rounds; will increase TF back to previous goal rate of 45 mL/hr. Nursing reports small BM this AM. Diet: Pulmocare - goal rate 45 mL/hr WT: 218# (08/17) Labs noted: Na 145, Glu 125, Ca 7.5, Alb 1.5 Meds noted: Protonix, D5W @ 75, electrolyte protocol -Increase TF as tolerated to goal rate of 45 mL/hr. -Monitor wt. -RD follow-up: 08/19
--- NOTE | 2020-08-17 13:00 | NUR ---
DR. POSEY IN UNIT. WANT PHYSICAL THERAPY TO DANGLE PT ON SIDE OF BED IF AT ALL POSSIBLE.
--- NOTE | 2020-08-17 16:30 | NUR ---
PT DANGLED ON SIDE OF BED WITH PHYSICAL THERAPY. TOLERATED WELL.
[2020-08-18] VITALS (25 sets, daily range): BP systolic 127–181; BP diastolic 65–107
[2020-08-18 05:58] LABS: HEMATOCRIT 27.3 % (42.0-54.0); HEMOGLOBIN 8.7 g/dL (13.5-17.5); MCH 26.7 pg (26.0-34.0); MCHC 31.8 g/dL (31.0-37.0); MEAN PLATELET VOLUME 8.5 fL (7.4-10.4); PLATELET COUNT 340 10x3/uL (130-400); RBC 3.25 10x6/uL (4.20-6.10)
[2020-08-18 06:27] LABS: ALBUMIN 1.5 g/dL (3.4-5.0); ALKALINE PHOSPHATASE 118 U/L (30-120); ALT (SGPT) 63 U/L (10-68); BILIRUBIN - TOTAL 0.54 mg/dL (0.2-1.3); CALC OSMOLALITY 291 mosm/kg (275-300); CALCIUM 7.4 mg/dL (8.5-10.1); CARBON DIOXIDE 25.6 mmol/L (21.0-32.0); CHLORIDE - SERUM 113 mmol/L (98-107); CREATININE - SERUM 0.7 mg/dL (0.6-1.3); GLUCOSE 131 mg/dL (74-106); POTASSIUM - SERUM 3.7 mmol/L (3.5-5.1); PROTEIN - SERUM 5.7 g/dL (6.4-8.2); SODIUM 143 mmol/L (136-145); UREA NITROGEN 27 mg/dL (7-18); eGFR NON AFRICAN AMERICAN > 90 mL/min (90-120)
--- NOTE | 2020-08-18 07:40 | NUR ---
REPORT RECEIVED FROM MARCY CARTWRIGHT DAYSHIFT AND PATIENT CARE ASSUMED. PATIENT LAYING IN BED ON BACK WITH HOB ELEVATED 30 DEGREES EYES CLOSED BREATHING EVENLY. VSS. ALL LINES AND JANE CHECKED AND PATIENT. WILL CONTINUE WITH PLAN OF CARE. SR UP X 2 BED IN LOW POSITION AND CALL LIGHT IN REACH.
--- NOTE | 2020-08-18 09:30 | NUR ---
DR ESPINAL ON UNIT. NO NEW ORDERS RECEIVED.
[2020-08-18 10:05] LABS: EOSINOPHILS 2 % (0-7); LYMPHOCYTES 7 % (15-50); MONOCYTES 5 % (2-11); NEUTROPHILS 81 % (40-80); PLATELET ESTIMATE NORMAL
--- NOTE | 2020-08-18 10:45 | NUR ---
DR POSEY IN ROOM. ZACH DRAIN DCD WITH OUT DIFFICULTY. BETADINE AND CLEAN BANDAGE APPLIED. PT IN ROOM WORKING WITH PATIENT.
[2020-08-19] VITALS (55 sets, daily range): BP systolic 124–164; BP diastolic 63–102
[2020-08-19 05:11] LABS: BASOPHILS 0.5 % (0-2); EOSINOPHILS 2.3 % (0-7); HEMATOCRIT 26.6 % (42.0-54.0); HEMOGLOBIN 8.6 g/dL (13.5-17.5); LYMPHOCYTES 8.5 % (15-50); MCHC 32.4 g/dL (31.0-37.0); MCV 83.4 fL (80.0-100.0); MEAN PLATELET VOLUME 8.3 fL (7.4-10.4); MONOCYTES 6.1 % (2-11); NEUTROPHILS 82.6 % (40-80); PLATELET COUNT 382 10x3/uL (130-400); RBC 3.19 10x6/uL (4.20-6.10); RDW 15.3 % (11.5-14.5); WBC 16.7 10x3/uL (4.8-10.8)
[2020-08-19 05:38] LABS: ALBUMIN 1.5 g/dL (3.4-5.0); ALKALINE PHOSPHATASE 129 U/L (30-120); CALCIUM 7.2 mg/dL (8.5-10.1); CHLORIDE - SERUM 110 mmol/L (98-107); CREATININE - SERUM 0.6 mg/dL (0.6-1.3); GLUCOSE 126 mg/dL (74-106); POTASSIUM - SERUM 3.8 mmol/L (3.5-5.1); PROTEIN - SERUM 5.7 g/dL (6.4-8.2); SODIUM 143 mmol/L (136-145); eGFR NON AFRICAN AMERICAN > 90 mL/min (90-120)
[2020-08-19 05:43] LABS: ALT (SGPT) 83 U/L (10-68); CALC OSMOLALITY 289 mosm/kg (275-300); UREA NITROGEN 20 mg/dL (7-18)
--- NOTE | 2020-08-19 07:00 | NUR ---
RECEIVED BEDSIDE REPORT ON PATIENT AND ASSUMED CARE. PATIENT INCONTINENT OF STOOL, LINENS AND BEDDING CHANGED AND PATIENT REPOSITIONED IN BED. VSS. LEFT SUBCLAVIAN CVL, DRESSING C/D/I, INFUSING D5W AT 75 ML/HR. SCD'S AND NAINA HOSE IN PLACE. NG TUBE TO RIGHT NARE, WITH DRESSING LOOSE, REPLACED. PULMOCARE AT 45 ML/HR WITH 100 ML H2O FLUSHES EVERY 4 HRS, RESIDUAL NOTED TO BE 10. PLACEMENT VERIFIED VIA ASCULTATION. ON HIGH FLOW NC AT 11 LPM WITH SPO2 94%. BBS - CRACKLES NOTED. DIMINISHED IN THE BASES. HEAD TO TOE ASSESSMENT COMPLETED.
--- NOTE | 2020-08-19 09:07 | NUR ---
MORNING MEDS PER MAY, TUBE FEEDING BAG CHANGED ALONG WITH IV TUBING AND IV FLUIDS. VSS. PATIENT TURNED AND REPOSITIONED IN BED.
--- NOTE | 2020-08-19 10:35 | NUR ---
SPOKE TO DR. ROSENBERG AND NOTIFIED OF CONSULT FOR PEG TUBE PLACEMENT.
--- NOTE | 2020-08-19 10:59 | NUR ---
Nutrition Follow-up: Tolerating TF @ goal rate. +BM this AM; hypoactive BS. Noted consult placed for PEG placement. Diet: Pulmocare - goal rate 45 mL/hr + H2O flushes 100 mL q 4 hrs Wt: 216# (08/19) Labs noted: Glu 126, Ca 7.2, Alb 1.5, elev LFTs Meds noted: Colace, Senokot, Protonix, KCl, D5W @ 75 -TF as tolerated. -RD follow-up: 08/20
--- NOTE | 2020-08-19 11:27 | NUR ---
PATIENTS GIRLFRIEND AT BEDSIDE. UPDATED AND QUESTIONS ANSWERED. SON DOWNSTAIRS, GF WENT TO GET HIM TO COME UPSTAIRS.
--- NOTE | 2020-08-19 11:48 | NUR ---
PATEINTS SON AT ROOM UPDATED AND QUESTIONS ANSWERED. SPEAKS AT [facility] WITH DR. POSEY VIA TELEPHONE REGARDING PEG PROCEDURE AND HOSPITAL STAY.
--- NOTE | 2020-08-19 13:09 | NUR ---
PATIENT REQUESTS BEDPAN, INCONTINENT SMALL AMOUNT OF STOOL, PLACED ON BEDPAN, NO MORE BM. PATIENT CLEANED, NEW PADS PLACED AND TURNED AND REPOSITIONED IN BED.
--- NOTE | 2020-08-19 13:41 | NUR ---
ORAL CARE PROVIDED FOR PATIENT.
--- NOTE | 2020-08-19 14:49 | NUR ---
REASSESSMENT COMPLETED.VSS. PATIENT TURNED AND REPOSITONED IN BED.
--- NOTE | 2020-08-19 14:51 | NUR ---
DR. ROSENBERG AT ROOM UPDATED AND EXAMINES PATIENT.
--- NOTE | 2020-08-19 16:54 | NUR ---
RT AND ANESTHESIA NOTIFIED OF BRONCHOSCOPY SCHEDULED FOR TOMORROW FOLLOWING PEG TUBE PLACEMENT. LUIS ROLDAN CRNA STATED HE WAS AWARE AND HAD SPOKEN TO DR. ESPINAL.
[2020-08-20] VITALS (21 sets, daily range): BP systolic 112–168; BP diastolic 56–84
[2020-08-20 03:17] LABS: BASOPHILS 0.9 % (0-2); EOSINOPHILS 2.6 % (0-7); HEMATOCRIT 25.5 % (42.0-54.0); HEMOGLOBIN 8.2 g/dL (13.5-17.5); LYMPHOCYTES 7.7 % (15-50); MCH 26.6 pg (26.0-34.0); MCV 83.4 fL (80.0-100.0); MEAN PLATELET VOLUME 8.4 fL (7.4-10.4); MONOCYTES 6.4 % (2-11); NEUTROPHILS 82.4 % (40-80); PLATELET COUNT 392 10x3/uL (130-400); RBC 3.06 10x6/uL (4.20-6.10); RDW 14.8 % (11.5-14.5); WBC 14.6 10x3/uL (4.8-10.8)
[2020-08-20 03:37] LABS: ALBUMIN 1.4 g/dL (3.4-5.0); ALKALINE PHOSPHATASE 116 U/L (30-120); ALT (SGPT) 72 U/L (10-68); BILIRUBIN - TOTAL 0.45 mg/dL (0.2-1.3); CALC OSMOLALITY 285 mosm/kg (275-300); CALCIUM 7.3 mg/dL (8.5-10.1); CARBON DIOXIDE 25.2 mmol/L (21.0-32.0); CHLORIDE - SERUM 110 mmol/L (98-107); CREATININE - SERUM 0.6 mg/dL (0.6-1.3); GLUCOSE 119 mg/dL (74-106); POTASSIUM - SERUM 3.8 mmol/L (3.5-5.1); PROTEIN - SERUM 5.6 g/dL (6.4-8.2); SODIUM 142 mmol/L (136-145); UREA NITROGEN 17 mg/dL (7-18); eGFR NON AFRICAN AMERICAN > 90 mL/min (90-120)
--- NOTE | 2020-08-20 07:17 | NUR ---
REPORT RECEIVED FROM OFF GOING NURSE AND PATIENT CARE ASSUMED. PATIENT LAYING IN BED ON BACK AWAKE AND ALERT. ORIENTED X 4. VSS. CHECKED ALL LINES, IV AND JANE. ALL PATENT. PATIENT PREOP FOR PEG TUBE PLACEMENT AND BRONCHOSCOPY THIS AM. PATIENT DENIES ANY NEEDS OR PAIN. PATIENT TO SURGERY VIA HOSPTIAL BED ACCOMPANIED BY SURGERY PERSONNEL.
--- NOTE | 2020-08-20 08:43 | NUR ---
0830 - RESPIRATORY AT BEDSIDE FOR STAT UPDRAFT AND BIPAP APPLICATION. DR GARCIA ALSO AT BEDSIDE
--- NOTE | 2020-08-20 09:30 | NUR ---
PATIENT RETURNED TO ROOM FROM OR VIA HOSPITAL BED ACCOMPANIED BY SURGERY PERSONNEL. PATIENT IS AWAKE LETHARGIC. BIPAP IN PLACE. PEG TUBE NOTED IN UPPER ABDOMEN WITH DRSG C/D/I. VSS. PATIENT DENIES ANY NEEDS OR PAIN. WILL CONTINUE TO MONITOR. SR UP X 2 BED IN LOW POSITON AND CALL LIGHT IN REACH.
--- NOTE | 2020-08-20 10:30 | NUR ---
DR ESPINAL IN ROOM. NEW ORDERS RECIEVED.
--- NOTE | 2020-08-20 11:00 | NUR ---
PATIENT GIRLFRIEND IN ROOM. ANSWERED QUESTIONS TO SATISFACTION. PATIENT IS STABLE AND VSS. WILL CONTINUE TO MONITOR. SR UP X 2 BED IN LOW POSTION AND CALL LIGHT IN REACH.
--- NOTE | 2020-08-20 11:07 | NUR ---
Nutrition Reassessment/Follow-up: S/p PEG placement this AM; noted ok for H2O after 6 hrs and then resume TF if tolerating H2O. Noted bronch this AM as well. Diet: Pulmocare - goal rate 45 mL/hr + H2O flushes 100 mL q 4 hrs Wt: 209# (08/20); 216# (08/19); 214.9# (08/05)IBW: 184# Labs noted: Glu 119, Ca 7.3, Alb 1.4 Meds noted: Senokot, Colace, Protonix, KCl, D5W @ 75 Est needs: 6010-3204 kcal/day (25-30 kcal/kg IBW) 80-95 g protein/day (1-1.2 g/kg IBW) 5234-2173 mL fluid/day (1 mL/kcal) or per MD Nutrition Diagnosis: -Swallowing difficulty R/T dysphagia AEB FRAMING MANAGER eval, NPO status, PEG placement. Nutrition Goals: -Tolerate TF @ goal rate within 24-48 hrs. -Stable dry wt. Nutrition Intervention: -Resume TF when medically feasible. Pulmocare @ 45 mL/hr provides 1620 kcal (67-80% est needs) & 68 g protein (72-85% est needs) daily. Rec increase goal rate to 55 mL/hr to better meet pt's needs; would provide 1980 kcal (82-98% est needs) & 83 g protein (87-104% est needs) daily. -Monitor wt; noted 7# difference since yesterday. -RD follow-up: 08/21
[2020-08-21] VITALS (21 sets, daily range): BP systolic 108–166; BP diastolic 57–104
[2020-08-21 03:26] LABS: BASOPHILS 0.9 % (0-2); EOSINOPHILS 2.1 % (0-7); HEMATOCRIT 24.3 % (42.0-54.0); LYMPHOCYTES 9.3 % (15-50); MCH 27.1 pg (26.0-34.0); MCHC 32.8 g/dL (31.0-37.0); MCV 82.7 fL (80.0-100.0); MEAN PLATELET VOLUME 7.9 fL (7.4-10.4); MONOCYTES 5.4 % (2-11); NEUTROPHILS 82.3 % (40-80); PLATELET COUNT 415 10x3/uL (130-400); RBC 2.94 10x6/uL (4.20-6.10); RDW 14.7 % (11.5-14.5); WBC 14.4 10x3/uL (4.8-10.8)
[2020-08-21 03:39] LABS: ALBUMIN 1.5 g/dL (3.4-5.0); ALKALINE PHOSPHATASE 119 U/L (30-120); ALT (SGPT) 65 U/L (10-68); BILIRUBIN - TOTAL 0.51 mg/dL (0.2-1.3); CALC OSMOLALITY 283 mosm/kg (275-300); CALCIUM 7.1 mg/dL (8.5-10.1); CARBON DIOXIDE 25.3 mmol/L (21.0-32.0); CHLORIDE - SERUM 109 mmol/L (98-107); CREATININE - SERUM 0.6 mg/dL (0.6-1.3); GLUCOSE 123 mg/dL (74-106); POTASSIUM - SERUM 4.1 mmol/L (3.5-5.1); PROTEIN - SERUM 5.6 g/dL (6.4-8.2); SODIUM 141 mmol/L (136-145); UREA NITROGEN 17 mg/dL (7-18); eGFR NON AFRICAN AMERICAN > 90 mL/min (90-120)
--- NOTE | 2020-08-21 07:00 | NUR ---
RECIEVED BEDSIDE REPORT ON PATIENT AND ASSUMED CARE. PATIENT RESTING QUIETLY, EASILY AROUSED BY VOICE. VSS. CM - SR RATE OF 100, RR 20, BBS - CRACKLES DIMINISHED IN THE BASES, ON O2 VIA HIGH FLOW NC AT 10 LPM WITH SPO2 - 96%. SCDS AND NAINA HOSE IN PLACE. LEFT SUBCLAVIAN CVL IN PLACE INFUSING D5W AT 75 ML/HR. PEG TUBE TO LEFT ABDOMEN, INSERTION SITE C/D/I, WITH PULMOCARE AT 45 ML/HR AND 100 ML H20 FLUSHES Q 4HRS. JANE CATH IN PLACE WITH CLEAR YELLOW UOP NOTED. PATIENT TURNED AND REPOSITIONED IN BED. HEAD TO TOE ASSESSMENT COMPLETED.
--- NOTE | 2020-08-21 09:18 | NUR ---
PATIENT ASSISTED UP TO BEDSIDE CHAIR, TOTAL ASSIST X 2. HAIR WASHED AND GIVEN BATH, ORAL CARE PERFORMED. VSS. MEDS PER MAY.
--- NOTE | 2020-08-21 10:48 | NUR ---
Nutrition foll-up: Pt with new PEG placed 08/20/20 Pulmocare infusing @ goal rate of 45 ml/hr with 100 ml H2O flush q 4 hours. Pt sitting in chair. Labs reviewed Wt: 217# D5W@ 75 ml/hr Pt tolerating TF at 45 ml/hr Recommendation: Increase TF to goal rate of 55 ml/hr to meet 82-98% of estimated nutritional needs. RDN will follow-up: 08/24/20
--- NOTE | 2020-08-21 11:00 | NUR ---
REASSESSMENT COMPLETED. VSS. SITTING UP IN BEDSIDE CHAIR.
--- NOTE | 2020-08-21 11:57 | NUR ---
SON AT ROOM, CONSENT FOR PICC LINE OBTAINED AND IR NOTIFIED.
--- NOTE | 2020-08-21 12:11 | NUR ---
PATIENT O2 DECREASED TO 9 LPM SPO2 96%.
--- NOTE | 2020-08-21 13:39 | NUR ---
PATIENT BACK TO BED TO GO TO IR FOR PICC LINE PLACEMENT. INCONTINENT OF BM, CLEANED AND LINENS CHANGED. TO IR WITH TECH. DURÁN.
--- NOTE | 2020-08-21 14:20 | NUR ---
PATEINT BACK FROM IR FOR PICC LINE, PLACED TO RIGHT UPPER ARM.
--- NOTE | 2020-08-21 15:00 | NUR ---
REASSESSMENT COMPLETED. VSS. SIGNIFICANT OTHER AT BEDSIDE.
[2020-08-21 15:12] LABS: FUNGUS STAIN Final report (())
--- NOTE | 2020-08-21 15:36 | NUR ---
PATIENT TURNED AND REPOSITIONED IN BED, TUBE FEEDING AND TUBING CHANGED.
--- NOTE | 2020-08-21 19:00 | NUR ---
BEDSIDE SHIFT REPORT RECIEVED, PT RESTING IN BED, SPEECH IS DIFFICULT TO UNDERSTAND, GARBLED, PT FOLLOWS DIRECTIONS. PICC TO RIGHT UPPER ARM WITH D5W @75ML/HR. PEG TUBE WITH PULMACARE @ 45ML/HR AND 100ML H20 FLUSH Q4H. PT LEFT HAND WITH LESS STRENGTH OR DEXTERITY THEN RIGHT, BILAT DORSAL FLEXATION EQUAL. 02 VIZ HFNC @7L. JANE IN PLACE. PT USING YAUNKUR TO SUCTION PRODUCTIVE COUGH. CALL LIGHT WITHIN REACH. WILL CONT TO MONITOR.
[2020-08-21 20:07] LABS: ACID FAST SMEAR Negative (()); AFB SPECIMEN PROCESSING Concentration (())
[2020-08-22] VITALS (24 sets, daily range): BP systolic 112–150; BP diastolic 59–84
--- NOTE | 2020-08-22 | NUR ---
PT SPILLED URINE WHILE USING URINAL, BED BATH AND LINEN CHANGE PREFORMED. DENIES PAIN OR OTHER COMPLAINTS AT THIS TIME, WILL CONT TO MONITOR.
--- NOTE | 2020-08-22 01:19 | NUR ---
FULL BED BATH WITH CHG, LINEN CHANGE AND GOWN CHANGE COMPLETED. PT POSTIONED FOR COMFORT AND PRESSURE RELIEF. DENIES COMPLAINTS OR UNMET NEEDS. CALL LIGHT AND YAUNKUR SUCTION DEVICE WITHIN REACH.
[2020-08-22 04:49] LABS: EOSINOPHILS 2.6 % (0-7); HEMATOCRIT 25.3 % (42.0-54.0); LYMPHOCYTES 9.1 % (15-50); MCH 26.5 pg (26.0-34.0); MCHC 31.8 g/dL (31.0-37.0); MCV 83.4 fL (80.0-100.0); MEAN PLATELET VOLUME 8.4 fL (7.4-10.4); MONOCYTES 5.4 % (2-11); NEUTROPHILS 81.9 % (40-80); PLATELET COUNT 431 10x3/uL (130-400); RBC 3.03 10x6/uL (4.20-6.10); RDW 14.9 % (11.5-14.5); WBC 12.8 10x3/uL (4.8-10.8)
[2020-08-22 05:07] LABS: ALBUMIN 1.5 g/dL (3.4-5.0); ALKALINE PHOSPHATASE 123 U/L (30-120); ALT (SGPT) 66 U/L (10-68); BILIRUBIN - TOTAL 0.36 mg/dL (0.2-1.3); CALC OSMOLALITY 281 mosm/kg (275-300); CALCIUM 7.3 mg/dL (8.5-10.1); CARBON DIOXIDE 25.6 mmol/L (21.0-32.0); CHLORIDE - SERUM 107 mmol/L (98-107); CREATININE - SERUM 0.6 mg/dL (0.6-1.3); GLUCOSE 129 mg/dL (74-106); POTASSIUM - SERUM 4.2 mmol/L (3.5-5.1); PROTEIN - SERUM 5.8 g/dL (6.4-8.2); SODIUM 140 mmol/L (136-145); UREA NITROGEN 16 mg/dL (7-18); eGFR NON AFRICAN AMERICAN > 90 mL/min (90-120)
[2020-08-23] VITALS (24 sets, daily range): BP systolic 118–149; BP diastolic 66–89
[2020-08-23 05:03] LABS: BASOPHILS 1.1 % (0-2); HEMATOCRIT 25.1 % (42.0-54.0); HEMOGLOBIN 8.2 g/dL (13.5-17.5); LYMPHOCYTES 7.3 % (15-50); MCH 27.1 pg (26.0-34.0); MCHC 32.8 g/dL (31.0-37.0); MCV 82.8 fL (80.0-100.0); MONOCYTES 5.2 % (2-11); NEUTROPHILS 82.4 % (40-80); PLATELET COUNT 447 10x3/uL (130-400); RBC 3.03 10x6/uL (4.20-6.10); RDW 14.8 % (11.5-14.5); WBC 12.6 10x3/uL (4.8-10.8)
[2020-08-23 05:13] LABS: ALBUMIN 1.6 g/dL (3.4-5.0); ALKALINE PHOSPHATASE 140 U/L (30-120); ALT (SGPT) 65 U/L (10-68); BILIRUBIN - TOTAL 0.32 mg/dL (0.2-1.3); CALC OSMOLALITY 274 mosm/kg (275-300); CALCIUM 7.4 mg/dL (8.5-10.1); CHLORIDE - SERUM 105 mmol/L (98-107); CREATININE - SERUM 0.6 mg/dL (0.6-1.3); GLUCOSE 129 mg/dL (74-106); POTASSIUM - SERUM 4.5 mmol/L (3.5-5.1); PROTEIN - SERUM 6.1 g/dL (6.4-8.2); SODIUM 136 mmol/L (136-145); UREA NITROGEN 15 mg/dL (7-18); eGFR NON AFRICAN AMERICAN > 90 mL/min (90-120)
--- NOTE | 2020-08-23 14:28 | NUR ---
PATIENT UP IN CHAIR TOTAL LIFT PER PHYSICAL THERAPY, HAND BUGGY LADLE TENDER IMPROVING. MORE ALERT, STILL GARBLED SPEECH. JANE CATH PATENT. PEG SITE [id number] REDNESS OR DRAINAGE. PULMOCARE INFUSING AT 45 ML HOUR. NO RESIDUAL. MONITOR SR. WEAK COUGH PRODUCTIVE. USING YANKEUR. ENCOURAGE FAMILY TO ALLOW PATIENT TO USE YANKEUR HIMSELF TO INCREASE HIS STRENGTH. PATIENT CAN HOLD INCENTIVE SPIROMETRY AND FLUTTER NEEDS HELP HOLDING ARMS UP. SCD ON LOWER LEGS. HEELS BRIDGE ON PILLOW. HEAD OF BED ELEVATED 30 DEGREES. PATIENT ABLE TO USE CALL LIGHT. PATIENT ABLE TO MAKE NEEDS KNOWN.
--- NOTE | 2020-08-23 19:15 | NUR ---
BEDSIDE SHIFT REPORT COMPLETE, PT RESTING IN BED, USING YAUNKUR SUCTION WHEN COUGHING, SMALL AMOUNT THICK MUCUS SUCTIONED AT TIMES. PT ABLE TO MOVE HIS HANDS AND FEET BETTER THEN PREVIOUS 2 SHIFTS OF CARE, ATTEMPTING TO USE I.S. INDEPENDENTLY. PT ABLE TO HELP HOLD HIMSELF ON SIDE DURING TURNS AND WHILE PLACEING BEDPAN. 02 VIA NC @ 4L. RUE PICC WITH D5W @30ML/HR. JANE WITH YELLOW URINE DRAINING. PEG TUBE CLEANED AND DRESSING CHANGED, PULMACARE AT 45ML/HR AND H20 FLUSH @100ML Q4H. PT HAD 1 MED LIQUID BROWN BM AT CHANGE OF SHIFT. CALL LIGHT AND SUCTION WITHIN REACH. WILL CONT TO MONITOR.
[2020-08-24] VITALS (24 sets, daily range): BP systolic 115–146; BP diastolic 66–90
[2020-08-24 06:01] LABS: HEMATOCRIT 26.5 % (42.0-54.0); HEMOGLOBIN 8.6 g/dL (13.5-17.5); MCH 26.7 pg (26.0-34.0); MCHC 32.4 g/dL (31.0-37.0); MCV 82.4 fL (80.0-100.0); MEAN PLATELET VOLUME 8.1 fL (7.4-10.4); PLATELET COUNT 438 10x3/uL (130-400); RBC 3.22 10x6/uL (4.20-6.10); RDW 14.8 % (11.5-14.5); WBC 10.1 10x3/uL (4.8-10.8)
[2020-08-24 06:10] LABS: CALC OSMOLALITY 278 mosm/kg (275-300); CALCIUM 7.7 mg/dL (8.5-10.1); CARBON DIOXIDE 29.6 mmol/L (21.0-32.0); CHLORIDE - SERUM 105 mmol/L (98-107); CREATININE - SERUM 0.5 mg/dL (0.6-1.3); GLUCOSE 134 mg/dL (74-106); POTASSIUM - SERUM 4.3 mmol/L (3.5-5.1); SODIUM 138 mmol/L (136-145); UREA NITROGEN 14 mg/dL (7-18); eGFR NON AFRICAN AMERICAN > 90 mL/min (90-120)
[2020-08-24 08:15] LABS: EOSINOPHILS 3 % (0-7); LYMPHOCYTES 14 % (15-50); NEUTROPHILS 83 % (40-80); PLATELET ESTIMATE INCREASED
[2020-08-24 08:16] LABS: ANISOCYTOSIS OCC; SCHISTOCYTES OCC
--- NOTE | 2020-08-24 09:40 | NUR ---
Nutrition follow-up: Pt with PEG tube; Pulmocare infusing at goal rate of 45 ml/hr with H2O flush 100 ml q 4 hours Labs reviewed +BM wt: 190#; down from 207#? all bedscale wts Recommendations: To better meet pts estimated nutrition needs, increase Pulmocare to goal rate of 55 ml/hr. RDN will follow-up in 2-3 days.
--- NOTE | 2020-08-24 10:00 | NUR ---
COMPLETE HIBCLENS BATH GIVEN, SHAVED, HAIR WASHED. JANE CATH CARE DONE. PATIENT VERY TIRED. BATH TOOK OVER AN HOUR. ALLOWED PATIENT TO REST SEVERAL TIMES DURING BATH. NO SKIN BREAKDOWN NOTED. ALL INCISIONS HEALING WITHOUT REDNESS OR DRAINAGE. JANE CATH PATENT. RIGHT HAND AND ARM DECREASED IN SWELLING NOTED. MOVING RIGHT LEG AND ARM MORE THAN LEFT. HAND CONTRACT PREPARER EQUAL. MONITOR SR.
--- NOTE | 2020-08-24 11:00 | NUR ---
UP IN CHAIR AT BEDSIDE PER PHYSICAL THERAPY. ENCOURAGE TO USE ARMS AND LEGS. NOT LIFTING LEGS UP AND DOWN OR ABLE TO WALK
--- NOTE | 2020-08-24 22:14 | NUR ---
BEDSIDE REPRT COMPLETED 1899, PT RESTING IN BED PREFORMING I.S. INDEPENDENTLY, THEN PREFORMED LEG LIFT TO BLE, LEFT HAND EDEMA DECREASED FROM PREVIOUS SHIFT OF CARE AND PT WITH INCREASED DEXTERITY AND STREGTH, BUT IS STILL WEAKER THEN RIGHT HAND. RIGHT HAND ALSO WITH INCREASED FINE MOTOR SKILLS AND PT IS BETTER ABLE TO PERTICIPATE IN ORAL CARE. 02 VIA NC @2L. PT RESPOSTIONED FOR COMFORT AND PRESSURE RELIEF, NO SKIN BREAKDOWN NOTED. PULMACARE TO PEGTUBE @45ML/HR WITH H20 100ML Q4H, NO RESIDUAL NOTED. CALL LIGHT AND PERSONAL ITEMS WITHIN REACH, WILL CONT TO MONITOR.
[2020-08-25] VITALS (24 sets, daily range): BP systolic 109–144; BP diastolic 68–88
--- NOTE | 2020-08-25 01:02 | NUR ---
NURSE SAID LET PT SLEEP
--- NOTE | 2020-08-25 09:52 | NUR ---
PT C/O CHEST PAIN THAT FEELS LIKE A "VISE SQUEEZING." NOTIFIED DR POSEY OF THIS, HE ORDERED NITRO AT 0.3, STAT ECHO, STAT CHEST XR, STAT TROPONIN, AND TO NOTIFY CARDIOLOGY. CALLED [facility] CARDIOLOGY RISK CONTROL DIRECTOR, SHE INCREASED COREG DOSE TO 6.25MG BID AND CAME BY TO SEE PT. ALSO CBC AND BMP ORDERED SINCE NO AM LABS DONE. WILL CONTINUE TO OBSERVE.
--- NOTE | 2020-08-25 10:00 | NUR ---
DR WOOTEN ROUNDED ON PT, NOTED PT HAD BEEN RECIEVING PEG FEEDINGS (PULMOCARE AT 45ML/HR) PER DR WOOTEN SINCE PT HAS PASSED SWALLOW EVAL AND NOW CAN EAT IT IS OKAY TO DECREASE TUBE FEED RATE TO 20ML/HR TO HELP INCREASE PTS APPETITE TO EAT BY MOUTH BUT TO ALSO STILL PROVIDE NUTRITION WHILE HE IS STARTING TO EAT AGAIN SINCE HE CURRENTLY DOES NOT HAVE MUCH OF AN APPETITE TO EAT. VSS. PT FED BREAKFAST AND STATED HE DID NOT WANT ANY MORE AFTER A FEW SIPS OF WATER. VSS. TURNED Q2H, ORAL CARE PROVIDED Q2H. WILL CONTINUE PLAN OF CARE.
[2020-08-25 10:01] LABS: BASOPHILS 1.2 % (0-2); HEMATOCRIT 28.4 % (42.0-54.0); HEMOGLOBIN 9.2 g/dL (13.5-17.5); LYMPHOCYTES 13.1 % (15-50); MCH 26.7 pg (26.0-34.0); MCHC 32.6 g/dL (31.0-37.0); MCV 82.1 fL (80.0-100.0); MEAN PLATELET VOLUME 7.6 fL (7.4-10.4); NEUTROPHILS 73.7 % (40-80); PLATELET COUNT 461 10x3/uL (130-400); RBC 3.46 10x6/uL (4.20-6.10); RDW 15.1 % (11.5-14.5); WBC 9.2 10x3/uL (4.8-10.8)
[2020-08-25 10:12] LABS: CALC OSMOLALITY 279 mosm/kg (275-300); CALCIUM 7.8 mg/dL (8.5-10.1); CARBON DIOXIDE 26.5 mmol/L (21.0-32.0); CHLORIDE - SERUM 104 mmol/L (98-107); CREATININE - SERUM 0.6 mg/dL (0.6-1.3); GLUCOSE 153 mg/dL (74-106); POTASSIUM - SERUM 4.1 mmol/L (3.5-5.1); SODIUM 138 mmol/L (136-145); UREA NITROGEN 16 mg/dL (7-18); eGFR NON AFRICAN AMERICAN > 90 mL/min (90-120)
[2020-08-25 10:34] LABS: TROPONIN-I 0.147 ng/mL (0.000-0.060)
--- NOTE | 2020-08-25 14:45 | NUR ---
PER DR POSEY STOP NITRO GTT.
--- NOTE | 2020-08-25 15:28 | NUR ---
PT ASSISTED BACK TO BED WITH ASSIST OF PHYSICAL THERAPY AND NURSING STAFF. HE WAS FIRST ASSISTED TO BEDSIDE TOILET, SMALL SOFT BROWN BOWEL MOVEMENT NOTED. TANI CARE/JANE CARE PROVIDED. PT ASSISTED BACK TO BED VIA MAX X 2 PERSON ASSIST. PT ASSISTED TO COMFORTABLE POSITION. NO ACUTE DISTRESS NOTED. VSS. WILL CONTINUE PLAN OF CARE.
--- NOTE | 2020-08-25 15:33 | EC ---
PATIENT:QUIRINO LOPEZ DATE OF SERVICE: 08/03/20 SEX: M MEDICAL RECORD: [id number] DATE OF : 51 LOCATION:[place] [address] AGE OF PATIENT: 65 ADMISSION DATE: 08/03/20 REFERRING PHYSICIAN: INTERPRETING PHYSICIAN: EKTA FRYE MD ECHOCARDIOGRAM REPORT ECHO CHARGES 4 ECHO COMPLETE Date: 08/25/20 CLINICAL DIAGNOSIS: CHEST PAIN ECHOCARDIOGRAPHIC MEASUREMENTS (adult normal given) AC root (d.<3.7cm) 3.2 cm LV Septum d (<1.2 cm> 1.5 cm Valve Excursion 1.2 cm LV Septum (systole) 1.7 cm Left Atria (s.<4.0cm> 4.9 cm LVPW d(<1.2cm) 1.4 cm RV (d.<2.3cm) 3.8 cm LVPW (sytole) 1.6 cm LV diastole(<5.6CM) 6.0 cm MV E-F(>70mm/sec) cm LV systole 3.2 cm LVOT Diameter 1.9 cm MV exc.(>10mm) 1.5 cm Est.ejection fraction (50-75%) 55 % DOPPLER: LVIT cm/sec A 102 cm/sec E 82 cm/sec LA cm/sec RVSP 35 mmHg LVOT 114 cm/sec AOP1/2T m/s Asc. Ao 215 cm/sec RVOT 95 cm/sec RA 5.4 cm/sec PA 111 cm/sec AV Gradient Peak 18 mmHg AV Mean 9 mmHg AV Area 1.7 cm MV Gradient Peak 3 mmHg MV Mean 1 mmHg MV Area cm COMMENTS: Marina Dry Dock Manager: Roxanne IRAHETA Print Production Manager: 3 Dr. Crowell TAPE# Pericardial Effusion N DATE OF SERVICE: CLINICAL DIAGNOSIS: Chest pain. INTERPRETATION: Normal left ventricular chamber size and contractile function with an ejection fraction of 55%. FINDINGS: Left atrial chamber is mildly dilated. Right atrium and right ventricular chamber size and function appears normal. Mild thickening and calcification of the aortic valve with good cusp excursion. Mild aortic ECHOCARDIOGRAM REPORT [id number] QUIRINO LOPEZ regurgitation. Mild thickening and calcification of the mitral valve. Mild mitral regurgitation. Tricuspid valve appears normal. Mild tricuspid regurgitation. Pulmonic valve not well visualized. No pulmonary regurgitation noted. No pericardial effusion visualized. IMPRESSION: Normal left ventricular chamber size and contractile function, ejection fraction 55%. TRANSINT:[id number] Voice Confirmation ID: [id number] DOCUMENT ID: [id number] EKTA FRYE MD at 1533 CC: [id number] DICTATION DATE: 08/25/20 1500 PAINTING AND COATING WORKER: 08/25/[address] [facility] [address] [place] [id number]
--- NOTE | 2020-08-25 16:44 | MORECARE ---
CASE MANAGEMENT DISCHARGE SUMMARY PATIENT: QUIRINO LOPEZ UNIT: [id number] ADM DATE: 08/03/20 AGE: 65 : 53 SEX: M ROOM/BED: [facility] AUTHOR: FRANK PAGAN PHYSICIAN: REFERRING PHYSICIAN: BOBBI MONSALVE DO DATE OF SERVICE: 08/25/20 Case Management Discharge Planning Summary DCP REVIEW SUMMARY ANTICIPATED D/C DATE: EXPECTED LOS : CASE STATUS: DCP Initiated INITIAL REVIEW: 08/02/2020 INITIAL REVIEWER: Alvino Razo FINAL DISCHARGE DISPOSITION: : FINAL REVIEWER: FINAL REVIEW DATE: DCP Focus Questions & Answers DCP Evaluation QUESTION: ANSWER Patient gives permission to discuss discharge plans with: (name, relationship and number) : family member, Dhiraj Hernandez, Patient's ability to cope with chronic illness : d. No chronic illness Patient's current cognitive status: : *Oriented to person, place, situation, time and present Family / Caregiver's ability to cope with chronic illness: : a. Adequate (ability to meet patient's medical needs, ensures patient attends medical appts.) Patient and/or caregiver agree upon recommended discharge plan? : Yes Physical Status: : Independent with ADL's Family / Caregiver's ability to cope with chronic illness: : a. Adequate (ability to meet patient's medical needs, ensures patient attends medical appts.) Functional screen assessment: : New onset in difficulty in gait, balance, or transfer difficulties Does the patient have the ability to pay for or attain post discharge needs / services? : Yes Living Arrangements: : Home with Extended Family Functional screen comments: : Post surgical ADL assistance Is there a likelihood that the patient will require additional services to return to the preadmission environment? : Yes Equipment needed for post hospitalization: : None Baseline cognitive status: : *Oriented to person, place, situation, time and present Patient with capacity for self-care or can be cared for in same environment as prior to hospitalization? : No Physical environment modification needed / anticipated for discharge: : No Medication Management: : Patient states can afford medications Medication Management: : Patient states can read and understand medication labels Pharmacy name(s): : [facility] Does Patient have transportation to get home and to follow-up medical appointments when discharged from the hospital? : Yes Would patient like to participate in any Care Coordination programs (if applicable): : Not applicable Does the patient have electricity at home? : Yes Does the patient have running water in their house? : Yes Equipment in use: : None Other Equipment comments: : the house has a Wheelchair, Walker, and Cane. Patient inherited these items from family. Patient does not use these items Mental health screen: : No mental health history DCP Re-evaluation QUESTION: ANSWER Would patient like to participate in any Care Coordination programs (if applicable): : Not applicable PATIENT: QUIRINO LOPEZ ENCOUNTER: [id number] MEDICAL RECORD#: [id number] ADMISSION DATE: 08/03/2020 DISCHARGE DATE: ATTENDING MD: BOBBI DE LA GARZA : AGE: 65 MARITAL STATUS: M DC PLAN ID: [id number] FACILITY: [facility] PRINTED ON: 08/25/20 16:44 CT All edits/amendments must be made on the electronic document DICTATION DATE: 08/25/201643 BI TESTER: AMY 08/25/201643 RPT#: [id number] DC DATE: STATUS: ADM IN [facility] [address] [place] [address] END OF REPORT
--- NOTE | 2020-08-25 16:55 | MORECARE ---
CASE MANAGEMENT DISCHARGE SUMMARY PATIENT: QUIRINO LOPEZ UNIT: [id number] ADM DATE: 08/03/20 AGE: 65 : 53 SEX: M ROOM/BED: D.CV02 AUTHOR: EJ,DOC PHYSICIAN: REFERRING PHYSICIAN: BOBBI MONSALVE DO DATE OF SERVICE: 08/25/20 Case Management Discharge Planning Summary COMMENTS ENTERED DATE: 08/25/20 16:44 CT COMMENT TYPE: Discharge Planning REVIEWER: Alvino Razo CM met with patient and family member, Dhiraj Hernandez, to complete DC plan and to evaluate needs. Patient lives independently with family. Ms Hearn stated that the patient's home is safe and has electricity and running water. Ms Hearn stated that the patient has no problems paying for medications and he fills his medications at [facility]. Ms Hearn stated that the patient's primary care is through [facility]. Ms Hearn and the patient's son, Alfred, also reached at [phone], stated that they would like to have the patient discharged to a nursing rehab closer to their home as soon as possible. Ms. Hearn stated that currently it is difficult for the family to be able to visit the patient and arrange transport for visitation. Ms. Hearn and the patient's son are also concerned that current care is not adequate. CM attempted to address the family's concerns. The family respectfully request that the patient discharge to [facility]. ISIDRO spoke with Shikha ([phone]) of [facility]. Shikha stated that she would like current clinical documents faxed to [phone] and she will call CM back. CM awaiting call back from Shikha. CM called [facility] back to inquire about decision for acceptance. Nurse Sykes stated that Shikha has left for the day and CM needs to call back in the morning. Family informed of development. ELVIA signed and placed in chart. Ms. Hearn denies prior mobility problems for the patient. No DME requested. Family voiced no other needs at this time and is satisfied with DC plan. DC IMM delivered, explained, signed by the patient, and placed in chart. Signed form also left with the patient. CM will continue to follow and will assist as needed with dc plans/needs. DCP REVIEW SUMMARY ANTICIPATED D/C DATE: EXPECTED LOS : CASE STATUS: DCP Initiated INITIAL REVIEW: 08/02/2020 INITIAL REVIEWER: Alvino Razo FINAL DISCHARGE DISPOSITION: : FINAL REVIEWER: FINAL REVIEW DATE: DCP Focus Questions & Answers DCP Evaluation QUESTION: ANSWER Patient gives permission to discuss discharge plans with: (name, relationship and number) : family member, Dhiraj Hernandez, Patient's ability to cope with chronic illness : d. No chronic illness Patient's current cognitive status: : *Oriented to person, place, situation, time and present Family / Caregiver's ability to cope with chronic illness: : a. Adequate (ability to meet patient's medical needs, ensures patient attends medical appts.) Patient and/or caregiver agree upon recommended discharge plan? : Yes Physical Status: : Independent with ADL's Family / Caregiver's ability to cope with chronic illness: : a. Adequate (ability to meet patient's medical needs, ensures patient attends medical appts.) Functional screen assessment: : New onset in difficulty in gait, balance, or transfer difficulties Does the patient have the ability to pay for or attain post discharge needs / services? : Yes Living Arrangements: : Home with Extended Family Functional screen comments: : Post surgical ADL assistance Is there a likelihood that the patient will require additional services to return to the preadmission environment? : Yes Equipment needed for post hospitalization: : None Baseline cognitive status: : *Oriented to person, place, situation, time and present Patient with capacity for self-care or can be cared for in same environment as prior to hospitalization? : No Physical environment modification needed / anticipated for discharge: : No Medication Management: : Patient states can afford medications Medication Management: : Patient states can read and understand medication labels Pharmacy name(s): : [facility] Does Patient have transportation to get home and to follow-up medical appointments when discharged from the hospital? : Yes Would patient like to participate in any Care Coordination programs (if applicable): : Not applicable Does the patient have electricity at home? : Yes Does the patient have running water in their house? : Yes Equipment in use: : None Other Equipment comments: : the house has a Wheelchair, Walker, and Cane. Patient inherited these items from family. Patient does not use these items Mental health screen: : No mental health history DCP Re-evaluation QUESTION: ANSWER Would patient like to participate in any Care Coordination programs (if applicable): : Not applicable PATIENT: QUIRINO LOPEZ ENCOUNTER: [id number] MEDICAL RECORD#: [id number] ADMISSION DATE: 08/03/2020 DISCHARGE DATE: ATTENDING MD: BOBBI DE LA GARZA : AGE: 65 MARITAL STATUS: M DC PLAN ID: [id number] FACILITY: [facility] PRINTED ON: 08/25/20 16:55 CT All edits/amendments must be made on the electronic document DICTATION DATE: 08/25/201654 DINING SERVICES DIRECTOR: AMY 08/25/201654 RPT#: [id number] DC DATE: STATUS: ADM IN [facility] [address] [place] [address] END OF REPORT
--- NOTE | 2020-08-25 22:30 | NUR ---
BEDSIDE SHIFT REPORT COMPLETED AT 1915, PT RESTING IN BED, AWAKE AND ORIENTED TO PLACE, YEAR, SELF AND SITUATION. PICC TO E . PEG TUBE WITH PULMACARE @ 20ML/HR AND 100ML H20 FLUSH Q4H. SAT PT UP AND PT DRANK 50ML WATER WITHOUT SIGNS OF ASPIRATION, DINNER PLACE WITH VEGTABLE EATEN, 3 SPOONSFULLS OF SOUP, 1 BITE OF DESSERT PT DID NOT EAT MEAT, PER SIGNIFICANT OTHER REPORT. PT HAD BP PER BEDPAN AND FULL BED BATH WITH SOAP AND WATER AND CHG, HAIR WASHED AND ORAL CARE, PT ABLE TO HELP TURN IN BED AND HOLD HIMSELF OVER USING BEDSIDE RAIL. 02 VIA NC @2L, PT DID NOT APPEAR DYSPNIC WITH MILD ACTIVITY. SIGNIFICANT OTHER AT BEDSIDE. CALL LIGHT WITHIN REACH. WILL CONT TO MONITOR.
[2020-08-26] VITALS (25 sets, daily range): BP systolic 88–131; BP diastolic 52–81
--- NOTE | 2020-08-26 04:34 | NUR ---
PT APPEAR SLEEPING, HAS SLEPT BETTER TONIGHT THEN PRIOR 4 NIGHTS, RESP EVEN/UNLABORED. VITALS STABLE, WILL CONT TO MONITOR.
[2020-08-26 06:52] LABS: EOSINOPHILS 3.7 % (0-7); HEMATOCRIT 28.8 % (42.0-54.0); HEMOGLOBIN 9.3 g/dL (13.5-17.5); LYMPHOCYTES 18.9 % (15-50); MCH 26.7 pg (26.0-34.0); MCHC 32.4 g/dL (31.0-37.0); MCV 82.3 fL (80.0-100.0); MEAN PLATELET VOLUME 8.1 fL (7.4-10.4); MONOCYTES 6.6 % (2-11); NEUTROPHILS 69.8 % (40-80); PLATELET COUNT 487 10x3/uL (130-400); RBC 3.49 10x6/uL (4.20-6.10); RDW 14.9 % (11.5-14.5); WBC 9.1 10x3/uL (4.8-10.8)
[2020-08-26 07:01] LABS: CALC OSMOLALITY 284 mosm/kg (275-300); CALCIUM 8.1 mg/dL (8.5-10.1); CARBON DIOXIDE 27.9 mmol/L (21.0-32.0); CHLORIDE - SERUM 106 mmol/L (98-107); CREATININE - SERUM 0.6 mg/dL (0.6-1.3); GLUCOSE 135 mg/dL (74-106); POTASSIUM - SERUM 4.2 mmol/L (3.5-5.1); SODIUM 141 mmol/L (136-145); UREA NITROGEN 18 mg/dL (7-18); eGFR NON AFRICAN AMERICAN > 90 mL/min (90-120)
--- NOTE | 2020-08-26 10:00 | NUR ---
DR. WOOTEN IN UNIT FOR MORNING ROUNDS. CONTINUE WITH TUBE FEED AT 20ML/HR UNTIL PT STARTS TO EAT MORE ON HIS OWN.
--- NOTE | 2020-08-26 10:32 | NUR ---
SPOUSE AT BEDSIDE. INFORMED NURSE THAT PT IS LACTOSE INTOLERANT AND NORMALLY TAKES OVER THE COUNTER MEDICATION FOR IT WHEN HE DRINKS MILK AT HOME.
--- NOTE | 2020-08-26 12:00 | NUR ---
Nutrition Reassessment/Follow-up: Nursing reports pt ate ~40% of breakfast this AM. TF running @ 20 mL/hr. Per Dr. Vasquez, ok to leave @ 20 mL/hr for now to see if PO intake improves; provides 720 kcal & 30 g protein daily. Diet: Regular, Puree Pulmocare - goal rate 45 mL/hr Wt: 187# (08/26); 211.6# (08/05)BMI: 25.4I/Os: -3375.6 mL (08/27) Labs noted: Glu 135, Ca 8.1 Meds noted: Florajen, Protonix, Senokot, KCl Nutrition Goals: -PO intake >=75% avg of meals/snacks. -Stable dry wt. Nutrition Intervention: -Nutrition needs and Dx unchanged since previous reassessment. -Encourage PO intake and honor food preferences within diet restrictions; as PO intake improves, hopeful to be able to d/c TF. -Monitor wt. Noted 24.6# difference in <1 mo, although also noted -3375.6 mL yesterday. -RD follow-up: 08/28
--- NOTE | 2020-08-26 14:00 | NUR ---
TRANSFERRED BACK TO BED BY PHYSICAL THERAPY. PT TOLERATED WELL.
[2020-08-27] VITALS (22 sets, daily range): BP systolic 19–132; BP diastolic 62–88
[2020-08-27 05:22] LABS: BASOPHILS 1.3 % (0-2); EOSINOPHILS 4.2 % (0-7); HEMATOCRIT 28.7 % (42.0-54.0); HEMOGLOBIN 9.4 g/dL (13.5-17.5); LYMPHOCYTES 16.4 % (15-50); MCH 27.2 pg (26.0-34.0); MCHC 32.9 g/dL (31.0-37.0); MCV 82.8 fL (80.0-100.0); MEAN PLATELET VOLUME 7.7 fL (7.4-10.4); MONOCYTES 7.2 % (2-11); NEUTROPHILS 70.9 % (40-80); PLATELET COUNT 464 10x3/uL (130-400); RBC 3.46 10x6/uL (4.20-6.10); RDW 14.8 % (11.5-14.5); WBC 9.2 10x3/uL (4.8-10.8)
[2020-08-27 05:38] LABS: CALC OSMOLALITY 278 mosm/kg (275-300); CALCIUM 8.1 mg/dL (8.5-10.1); CARBON DIOXIDE 28.4 mmol/L (21.0-32.0); CHLORIDE - SERUM 103 mmol/L (98-107); CREATININE - SERUM 0.7 mg/dL (0.6-1.3); GLUCOSE 116 mg/dL (74-106); POTASSIUM - SERUM 4.2 mmol/L (3.5-5.1); SODIUM 138 mmol/L (136-145); UREA NITROGEN 18 mg/dL (7-18); eGFR NON AFRICAN AMERICAN > 90 mL/min (90-120)
--- NOTE | 2020-08-27 09:17 | NUR ---
AM MEDS GIVEN. REPOSITIONED FOR COMFORT. PT STARTED HAVING NOSE BLEED WHILE NURSE WAS IN ROOM. SUCTION PROVIDED. ORAL CARE PROVIDED. BLEED STOPPED. OFELIA VIDAL WITH DR. POSEY NOTIFIED. WILL CONTINUE TO MONITOR.
--- NOTE | 2020-08-27 10:08 | NUR ---
DR. WOOTEN NOTIFIED OF NOSE BLEED. ORDERED SALINE SPRAY TO HELP KEEP NOSE MOIST.
--- NOTE | 2020-08-27 10:29 | NUR ---
CALL RECEIVED FROM DAIANA. PASSCODE VERIFIED. UPDATE GIVEN. WAS TOLD PT HAD NOSE BLEED THIS MORNING. SITTING UP IN CHAIR, RESTING COMFORTABLY.
--- NOTE | 2020-08-27 11:05 | NUR ---
NOSE STARTED TO BLEED AGAIN. NOSE PACKED WITH 4X4 GAUZE. BLEEDING APPEARS TO HAVE STOPPED AT THIS TIME. WILL CONTINUE TO MONITOR. O2 OFF AT THIS TIME. O2 SAT 91-92% ON ROOM AIR.
--- NOTE | 2020-08-27 12:23 | NUR ---
NOSE STARTED TO BLEED AGAIN. DR. POSEY NOTIFIED. OKAY TO PACK NOSE AT THIS TIME. 2X2 USED. PT SITTING UP IN CHAIR. WILL CONTINUE TO MONITOR.
[2020-08-27 15:12] LABS: FUNGUS CULTURE RESULT 1 Candida glabrata (()); FUNGUS MYCOLOGY CULTURE Preliminary report (())
--- NOTE | 2020-08-27 15:25 | NUR ---
PLACED PT ON FACE MASK WITH AEROSOL 28% FOR HUMIDITY PER VERBAL ORDER DR POSEY
[2020-08-28] VITALS (13 sets, daily range): BP systolic 109–142; BP diastolic 59–92
[2020-08-28 07:34] LABS: HEMATOCRIT 29.7 % (42.0-54.0); HEMOGLOBIN 9.6 g/dL (13.5-17.5); MCH 26.8 pg (26.0-34.0); MCHC 32.5 g/dL (31.0-37.0); MCV 82.6 fL (80.0-100.0); MEAN PLATELET VOLUME 7.5 fL (7.4-10.4); PLATELET COUNT 422 10x3/uL (130-400); RDW 15.1 % (11.5-14.5); WBC 9.9 10x3/uL (4.8-10.8)
[2020-08-28 07:42] LABS: CALC OSMOLALITY 278 mosm/kg (275-300); CALCIUM 8.1 mg/dL (8.5-10.1); CARBON DIOXIDE 28.2 mmol/L (21.0-32.0); CHLORIDE - SERUM 103 mmol/L (98-107); CREATININE - SERUM 0.6 mg/dL (0.6-1.3); GLUCOSE 138 mg/dL (74-106); POTASSIUM - SERUM 4.3 mmol/L (3.5-5.1); SODIUM 137 mmol/L (136-145); UREA NITROGEN 22 mg/dL (7-18); eGFR NON AFRICAN AMERICAN > 90 mL/min (90-120)
[2020-08-28 09:12] LABS: EOSINOPHILS 2 % (0-7); LYMPHOCYTES 15 % (15-50); MONOCYTES 5 % (2-11); NEUTROPHILS 77 % (40-80); PLATELET ESTIMATE INCREASED; POLYCHROMASIA OCC
--- NOTE | 2020-08-28 09:53 | NUR ---
WANTS DR. SURESH CONSULTED FOR NOSE BLEED. ALLISON VIDAL WITH DR. POSEY CALL DR. SURESH'S OFFICE AND SENT HIM A MESSAGE.
--- NOTE | 2020-08-28 11:14 | NUR ---
DISCUSSED WITH AND ABOUT PT GOING TO THE FLOOR. ORDERS RECIEVED WILL CONTINUE TO MONITOR.
--- NOTE | 2020-08-28 12:08 | NUR ---
PT HAS TRANSFER ORDERS TO GO TO FLOOR. ATTEMPTED TO CALL REPORT. RECEIVING NURSE AT LUNCH. MESSAGE LEFT TO CALL CVICU WHEN NURSE RETURNS FROM LUNCH.
--- NOTE | 2020-08-28 12:19 | NUR ---
Nutrition Follow-up: Overall PO intake remains poor. TF was increased back up to 40 mL/hr yesterday. Noted plans to transfer to floor. Diet: Regular, Puree with Thin Liquids Pulmocare @ 40 mL/hr + H2O flushes 100 mL q 4 hrs PO intake: 33% avg x 6 meals (08/26-08/27) Wt: 184# (08/27); 189# (08/24) I/Os: -891 (08/27); -822 (08/26); -3375.6 (08/25); -311 (08/24) Last BM: 08/27 Labs noted: Glu 138, Ca 8.1 Meds noted: KCl, Protonix, electrolyte protocol -Encourage PO intake and honor food preferences within diet restrictions. -Hopeful to be able to decrease TF as PO intake improves; pt may benefit from an appetite stimulant. -Monitor wt. -RD will follow up within 3-4 days.
--- NOTE | 2020-08-28 13:02 | NUR ---
REPORT CALLED TO LEÓN VIDAL ON MED 2. SHIDY AWARE THAT PT IS BEING TRANSFERRED TO FLOOR.
--- NOTE | 2020-08-28 13:26 | NUR ---
PT TRANSFERRED BACK TO BED BY PHYSICAL THERAPY. SHIDY AT BEDSIDE. DENIES FURTHER NEEDS AT THIS TIME.
--- NOTE | 2020-08-28 15:08 | NUR ---
PT TO ROOM FROM ICU ON BED. AT BEDSIDE. JANE NOTED, STATLOCK IN PLACE. TUBE FEEDING PER PEG AT 40 ML/HR. STERNAL INCISION NOTED THAT IS WELL APPROXIMATED AND SCABBED. SCD'S ON.
--- NOTE | 2020-08-28 16:43 | MORECARE ---
CASE MANAGEMENT DISCHARGE SUMMARY PATIENT: QUIRINO LOPEZ UNIT: [id number] ADM DATE: 08/03/20 AGE: 65 : 53 SEX: M ROOM/BED: D.2116 AUTHOR: EJ,DOC PHYSICIAN: REFERRING PHYSICIAN: BOBBI MONSALVE DO DATE OF SERVICE: 08/28/20 Case Management Discharge Planning Summary COMMENTS ENTERED DATE: 08/28/20 16:38 CT COMMENT TYPE: Discharge Planning REVIEWER: Adelaida Ward Late entry for 08/26/2020: CM followed up with Mohit at [facility] on referral. Faxed records as requested. Awaiting determination. 08/27/2020 CM received voice message that [facility] are not able to meet the patient's needs. Will need to have family select another SNF. ENTERED DATE: 08/25/20 16:44 CT COMMENT TYPE: Discharge Planning REVIEWER: Alvino Razo CM met with patient and family member, Dhiraj Hernandez, to complete DC plan and to evaluate needs. Patient lives independently with family. Ms Hearn stated that the patient's home is safe and has electricity and running water. Ms Hearn stated that the patient has no problems paying for medications and he fills his medications at [facility]. Ms Hearn stated that the patient's primary care is through [facility]. Ms Hearn and the patient's son, Alfred, also reached at [phone], stated that they would like to have the patient discharged to a nursing rehab closer to their home as soon as possible. Ms. Hearn stated that currently it is difficult for the family to be able to visit the patient and arrange transport for visitation. Ms. Hearn and the patient's son are also concerned that current care is not adequate. CM attempted to address the family's concerns. The family respectfully request that the patient discharge to [facility]. ISIDRO spoke with Shikha ([phone]) of [facility]. Shikha stated that she would like current clinical documents faxed to [phone] and she will call CM back. CM awaiting call back from Shikha. CM called [facility] back to inquire about decision for acceptance. Nurse Onel stated that Shikha has left for the day and CM needs to call back in the morning. Family informed of development. ELVIA signed and placed in chart. Ms. Hearn denies prior mobility problems for the patient. No DME requested. Family voiced no other needs at this time and is satisfied with DC plan. DC IMM delivered, explained, signed by the patient, and placed in chart. Signed form also left with the patient. CM will continue to follow and will assist as needed with dc plans/needs. DCP REVIEW SUMMARY ANTICIPATED D/C DATE: EXPECTED LOS : CASE STATUS: DCP Initiated INITIAL REVIEW: 08/02/2020 INITIAL REVIEWER: Alvino Razo FINAL DISCHARGE DISPOSITION: : FINAL REVIEWER: FINAL REVIEW DATE: DCP Focus Questions & Answers DCP Evaluation QUESTION: ANSWER Patient and/or caregiver agree upon recommended discharge plan? : Yes Patient's current cognitive status: : *Oriented to person, place, situation, time and present Patient's ability to cope with chronic illness : d. No chronic illness Patient gives permission to discuss discharge plans with: (name, relationship and number) : family member, Dhiraj Hernandez, Family / Caregiver's ability to cope with chronic illness: : a. Adequate (ability to meet patient's medical needs, ensures patient attends medical appts.) Does the patient have the ability to pay for or attain post discharge needs / services? : Yes Functional screen assessment: : New onset in difficulty in gait, balance, or transfer difficulties Family / Caregiver's ability to cope with chronic illness: : a. Adequate (ability to meet patient's medical needs, ensures patient attends medical appts.) Physical Status: : Independent with ADL's Functional screen comments: : Post surgical ADL assistance Equipment needed for post hospitalization: : None Is there a likelihood that the patient will require additional services to return to the preadmission environment? : Yes Living Arrangements: : Home with Extended Family Patient with capacity for self-care or can be cared for in same environment as prior to hospitalization? : No Baseline cognitive status: : *Oriented to person, place, situation, time and present Physical environment modification needed / anticipated for discharge: : No Medication Management: : Patient states can read and understand medication labels Medication Management: : Patient states can afford medications Pharmacy name(s): : [facility] Does Patient have transportation to get home and to follow-up medical appointments when discharged from the hospital? : Yes Would patient like to participate in any Care Coordination programs (if applicable): : Not applicable Does the patient have electricity at home? : Yes Does the patient have running water in their house? : Yes Equipment in use: : None Other Equipment comments: : the house has a Wheelchair, Walker, and Cane. Patient inherited these items from family. Patient does not use these items Mental health screen: : No mental health history DCP Re-evaluation QUESTION: ANSWER Would patient like to participate in any Care Coordination programs (if applicable): : Not applicable PATIENT: QUIRINO LOPEZ ENCOUNTER: [id number] MEDICAL RECORD#: [id number] ADMISSION DATE: 08/03/2020 DISCHARGE DATE: ATTENDING MD: BOBBI DE LA GARZA : AGE: 65 MARITAL STATUS: M DC PLAN ID: [id number] FACILITY: [facility] PRINTED ON: 08/28/20 16:43 CT All edits/amendments must be made on the electronic document DICTATION DATE: 08/28/201642 ORDER PROCESSING CLERK: AMY 08/28/201642 RPT#: [id number] DC DATE: STATUS: ADM IN [facility] [address] [place] [address] END OF REPORT
[2020-08-29 00:43] VITALS: BP 109/68
[2020-08-29 05:37] VITALS: BP 115/76
[2020-08-29 06:26] LABS: CALC OSMOLALITY 274 mosm/kg (275-300); CARBON DIOXIDE 29.8 mmol/L (21.0-32.0); CHLORIDE - SERUM 102 mmol/L (98-107); CREATININE - SERUM 0.7 mg/dL (0.6-1.3); GLUCOSE 116 mg/dL (74-106); SODIUM 136 mmol/L (136-145); UREA NITROGEN 19 mg/dL (7-18); eGFR NON AFRICAN AMERICAN > 90 mL/min (90-120)
[2020-08-29 07:30] LABS: EOSINOPHILS 5.9 % (0-7); HEMATOCRIT 32.8 % (42.0-54.0); HEMOGLOBIN 9.9 g/dL (13.5-17.5); IMMATURE GRANULOCYTES 3.1 % (0-5); LYMPHOCYTE ABS# 1.52 10x3/uL (1.32-3.57); LYMPHOCYTES 18.8 % (15-50); MCH 26.3 pg (26.0-34.0); MCHC 30.2 g/dL (31.0-37.0); MONOCYTES 8.3 % (2-11); NEUTROPHIL ABS# 5.09 10x3/uL (1.78-5.38); NEUTROPHILS 62.9 % (40-80); PLATELET COUNT 423 10x3/uL (130-400); RBC 3.76 10x6/uL (4.20-6.10); RDW 15.2 % (11.5-14.5); WBC 8.1 10x3/uL (4.8-10.8)
[2020-08-29 07:31] LABS: MCV 87.2 fL (80.0-100.0)
[2020-08-29 09:17] VITALS: BP 119/82
[2020-08-29 11:57] VITALS: BP 101/66
[2020-08-29 19:54] VITALS: BP 122/73
[2020-08-29 20:00] VITALS: BP 122/73
--- NOTE | 2020-08-29 20:00 | NUR ---
INITIAL ROUNDS AND ASSESSMENT COMPLETED. PT RESTING IN BED. NO DISTRESS. CALL LIGHT IN REACH.
[2020-08-30 04:00] VITALS: BP 125/78
[2020-08-30 06:35] LABS: BASOPHILS 1.2 % (0-2); EOSINOPHILS 7.1 % (0-7); HEMATOCRIT 31.1 % (42.0-54.0); HEMOGLOBIN 10.1 g/dL (13.5-17.5); LYMPHOCYTES 18.8 % (15-50); MCH 26.9 pg (26.0-34.0); MCHC 32.6 g/dL (31.0-37.0); MEAN PLATELET VOLUME 8.3 fL (7.4-10.4); MONOCYTES 7.6 % (2-11); NEUTROPHILS 65.3 % (40-80); PLATELET COUNT 379 10x3/uL (130-400); RBC 3.76 10x6/uL (4.20-6.10); RDW 15.2 % (11.5-14.5)
[2020-08-30 06:36] LABS: MCV 82.6 fL (80.0-100.0)
[2020-08-30 06:52] LABS: CALC OSMOLALITY 276 mosm/kg (275-300); CALCIUM 8.3 mg/dL (8.5-10.1); CHLORIDE - SERUM 102 mmol/L (98-107); CREATININE - SERUM 0.6 mg/dL (0.6-1.3); GLUCOSE 115 mg/dL (74-106); POTASSIUM - SERUM 4.2 mmol/L (3.5-5.1); SODIUM 137 mmol/L (136-145); UREA NITROGEN 19 mg/dL (7-18); eGFR NON AFRICAN AMERICAN > 90 mL/min (90-120)
--- NOTE | 2020-08-30 07:20 | NUR ---
RECIEVE REPORT. ALERT AND ORIENTED X4. SITTING UP IN BED. PEG TUBE INFUSING ORDERED. JANE DRAINING BY GRAVITY. CONTINUE PLAN OF CARE AND SAFETY PRECAUTIONS.
[2020-08-30 07:44] VITALS: BP 109/76; BP 136/86
[2020-08-30 15:37] VITALS: BP 126/78
[2020-08-30 20:14] VITALS: BP 117/77
[2020-08-30 23:38] VITALS: BP 116/82
[2020-08-31 06:07] VITALS: BP 107/71
[2020-08-31 06:30] LABS: BASOPHILS 1.8 % (0-2); EOSINOPHILS 8.9 % (0-7); HEMATOCRIT 31.7 % (42.0-54.0); HEMOGLOBIN 10.1 g/dL (13.5-17.5); LYMPHOCYTES 17.2 % (15-50); MCH 26.3 pg (26.0-34.0); MCV 82.4 fL (80.0-100.0); MONOCYTES 6.8 % (2-11); NEUTROPHILS 65.3 % (40-80); PLATELET COUNT 332 10x3/uL (130-400); RBC 3.85 10x6/uL (4.20-6.10); RDW 15.1 % (11.5-14.5); WBC 9.4 10x3/uL (4.8-10.8)
[2020-08-31 06:46] LABS: ALBUMIN 2.4 g/dL (3.4-5.0); ALKALINE PHOSPHATASE 131 U/L (30-120); ALT (SGPT) 62 U/L (10-68); BILIRUBIN - TOTAL 0.39 mg/dL (0.2-1.3); CALC OSMOLALITY 275 mosm/kg (275-300); CALCIUM 8.2 mg/dL (8.5-10.1); CARBON DIOXIDE 29.5 mmol/L (21.0-32.0); CHLORIDE - SERUM 102 mmol/L (98-107); CREATININE - SERUM 0.7 mg/dL (0.6-1.3); GLUCOSE 160 mg/dL (74-106); POTASSIUM - SERUM 3.9 mmol/L (3.5-5.1); PROTEIN - SERUM 7.2 g/dL (6.4-8.2); SODIUM 135 mmol/L (136-145); UREA NITROGEN 21 mg/dL (7-18); eGFR NON AFRICAN AMERICAN > 90 mL/min (90-120)
--- NOTE | 2020-08-31 07:20 | NUR ---
RECIEVE REPORT. ALERT AND ORIENTED X4. SITTING UP IN BED. SINUS RHYTHM ON TELEMETRY. SCDs ON. JANE DRAINING BY GRAVITY. PEG TUBE FEEDINGS INFUSING ORDERED. DENIES ANY NEEDS. CONTINUE PLAN OF CARE AND SAFETY PRECAUTIONS.
[2020-08-31 08:05] VITALS: BP 119/74
--- NOTE | 2020-08-31 12:55 | NUR ---
Nutrition Reassessment/Follow-up: Spoke with nurse (Ines) this AM who reports that pt c/o feeling full all time time; discussed nocturnal feeds. Discussed in IDT; ok to change to nocturnal feeds to possibly enable pt to eat more during the day. Diet: Regular, Puree, Thin Liquid Pulmocare - goal rate 40 mL/hr Wt: 180# (08/30); 211.6# (08/05) Labs noted: Na 135, Glu 160, Ca 8.2, Alb 2.4 Meds reviewed Est needs: 3212-4191 kcal/day (25-30 kcal/kg actual BW) 80-100 g protein/day (1-1.2 g/kg actual BW) 1081-0238 mL fluid/day (1 mL/kcal) or per MD Nutrition Diagnosis: -Swallowing difficulty R/T dysphagia AEB SANITARIAN AIDE eval, PEG placement. Nutrition Goals: -PO intake >=75% avg of meals/snacks with eventual d/c of TF. -Stable dry wt. Nutrition Intervention: -Change TF to nocturnal to help encourage PO intake. -Pt may also benefit from an appetite stimulant. -Monitor wt. Wt loss of 31.6# noted over the past month. -RD will follow up within 2-3 days.
--- NOTE | 2020-08-31 12:55 | MORECARE ---
CASE MANAGEMENT DISCHARGE SUMMARY PATIENT: QUIRINO LOPEZ UNIT: [id number] ADM DATE: 08/03/20 AGE: 65 : 51 SEX: M ROOM/BED: D.2116 AUTHOR: EJ,DOC PHYSICIAN: REFERRING PHYSICIAN: BOBBI MONSALVE DO DATE OF SERVICE: 08/31/20 Case Management Discharge Planning Summary COMMENTS ENTERED DATE: 08/31/20 12:46 CT COMMENT TYPE: Discharge Planning REVIEWER: Fanny Elliott CM called [facility] and spoke with Sharmin about reason for denying rehab. Sharmin states that they do not have the staff to care for patient if he has not had his Covid vaccine. I asked if he had vaccine and he said no. He consents to INpatient rehab at [facility]. I attempted to call Dhiraj and her family states he is on her way here. CM will continue to follow and assist with discharge planning/needs. ENTERED DATE: 08/28/20 16:38 CT COMMENT TYPE: Discharge Planning REVIEWER: Adelaida Ward Late entry for 08/26/2020: CM followed up with Mohit at [facility] on referral. Faxed records as requested. Awaiting determination. 08/27/2020 CM received voice message that [facility] are not able to meet the patient's needs. Will need to have family select another SNF. ENTERED DATE: 08/25/20 16:44 CT COMMENT TYPE: Discharge Planning REVIEWER: Alvino Razo CM met with patient and family member, Dhiraj Hernandez, to complete DC plan and to evaluate needs. Patient lives independently with family. Ms Hearn stated that the patient's home is safe and has electricity and running water. Ms Hearn stated that the patient has no problems paying for medications and he fills his medications at [facility]. Ms Hearn stated that the patient's primary care is through [facility]. Ms Hearn and the patient's son, Alfred, also reached at [phone], stated that they would like to have the patient discharged to a nursing rehab closer to their home as soon as possible. Ms. Hearn stated that currently it is difficult for the family to be able to visit the patient and arrange transport for visitation. Ms. Hearn and the patient's son are also concerned that current care is not adequate. CM attempted to address the family's concerns. The family respectfully request that the patient discharge to [facility]. CM spoke with Shikha ([phone]) of [facility]. Shikha stated that she would like current clinical documents faxed to [phone] and she will call CM back. CM awaiting call back from Shikha. CM called [facility] back to inquire about decision for acceptance. Nurse Sykes stated that Shikha has left for the day and CM needs to call back in the morning. Family informed of development. ELVIA signed and placed in chart. Ms. Hearn denies prior mobility problems for the patient. No DME requested. Family voiced no other needs at this time and is satisfied with DC plan. DC IMM delivered, explained, signed by the patient, and placed in chart. Signed form also left with the patient. CM will continue to follow and will assist as needed with dc plans/needs. DCP REVIEW SUMMARY ANTICIPATED D/C DATE: EXPECTED LOS : CASE STATUS: DCP Initiated INITIAL REVIEW: 08/02/2020 INITIAL REVIEWER: Alvino Razo FINAL DISCHARGE DISPOSITION: : FINAL REVIEWER: FINAL REVIEW DATE: DCP Focus Questions & Answers DCP Evaluation QUESTION: ANSWER Patient and/or caregiver agree upon recommended discharge plan? : Yes Family / Caregiver's ability to cope with chronic illness: : a. Adequate (ability to meet patient's medical needs, ensures patient attends medical appts.) Patient's current cognitive status: : *Oriented to person, place, situation, time and present Patient's ability to cope with chronic illness : d. No chronic illness Patient gives permission to discuss discharge plans with: (name, relationship and number) : family member, Dhiraj Hernandez, Does the patient have the ability to pay for or attain post discharge needs / services? : Yes Functional screen assessment: : New onset in difficulty in gait, balance, or transfer difficulties Family / Caregiver's ability to cope with chronic illness: : a. Adequate (ability to meet patient's medical needs, ensures patient attends medical appts.) Physical Status: : Independent with ADL's Equipment needed for post hospitalization: : None Is there a likelihood that the patient will require additional services to return to the preadmission environment? : Yes Functional screen comments: : Post surgical ADL assistance Living Arrangements: : Home with Extended Family Patient with capacity for self-care or can be cared for in same environment as prior to hospitalization? : No Baseline cognitive status: : *Oriented to person, place, situation, time and present Physical environment modification needed / anticipated for discharge: : No Medication Management: : Patient states can read and understand medication labels Medication Management: : Patient states can afford medications Pharmacy name(s): : [facility] Does Patient have transportation to get home and to follow-up medical appointments when discharged from the hospital? : Yes Would patient like to participate in any Care Coordination programs (if applicable): : Not applicable Does the patient have electricity at home? : Yes Does the patient have running water in their house? : Yes Equipment in use: : None Other Equipment comments: : the house has a Wheelchair, Walker, and Cane. Patient inherited these items from family. Patient does not use these items Mental health screen: : No mental health history DCP Re-evaluation QUESTION: ANSWER Would patient like to participate in any Care Coordination programs (if applicable): : Not applicable PATIENT: QUIRINO LOPEZ ENCOUNTER: [id number] MEDICAL RECORD#: [id number] ADMISSION DATE: 08/03/2020 DISCHARGE DATE: ATTENDING MD: BOBBI DE LA GARZA : AGE: 65 MARITAL STATUS: M DC PLAN ID: [id number] FACILITY: [facility] PRINTED ON: 08/31/20 12:55 CT All edits/amendments must be made on the electronic document DICTATION DATE: 08/31/20 125 DIAGNOSTIC RADIOLOGIST: AMY 08/31/20 125 RPT#: [id number] DC DATE: STATUS: ADM IN [facility] [address] [place] [place] [address] END OF REPORT
--- NOTE | 2020-08-31 19:30 | NUR ---
RECIEVED UP IN BED WITH SPOUSE AT BEDSIDE. ALERT AND ORIENTED X4. UP WITH ASSIST. DENIES ANY NEEDS AT THIS TIME.
[2020-08-31 23:07] VITALS: BP 97/58
[2020-09-01 00:57] VITALS: BP 115/68
[2020-09-01 04:51] VITALS: BP 101/68
[2020-09-01 06:30] LABS: BASOPHILS 1.4 % (0-2); EOSINOPHILS 8.2 % (0-7); HEMATOCRIT 30.6 % (42.0-54.0); HEMOGLOBIN 9.8 g/dL (13.5-17.5); LYMPHOCYTES 18.6 % (15-50); MCH 26.3 pg (26.0-34.0); MCHC 31.9 g/dL (31.0-37.0); MCV 82.6 fL (80.0-100.0); MEAN PLATELET VOLUME 8.1 fL (7.4-10.4); NEUTROPHILS 62.8 % (40-80); PLATELET COUNT 306 10x3/uL (130-400); RDW 15.4 % (11.5-14.5); WBC 9.4 10x3/uL (4.8-10.8)
[2020-09-01 06:45] LABS: ALBUMIN 2.4 g/dL (3.4-5.0); ALKALINE PHOSPHATASE 109 U/L (30-120); ALT (SGPT) 57 U/L (10-68); BILIRUBIN - TOTAL 0.52 mg/dL (0.2-1.3); CALC OSMOLALITY 280 mosm/kg (275-300); CALCIUM 7.9 mg/dL (8.5-10.1); CARBON DIOXIDE 28.3 mmol/L (21.0-32.0); CHLORIDE - SERUM 102 mmol/L (98-107); CREATININE - SERUM 0.6 mg/dL (0.6-1.3); GLUCOSE 115 mg/dL (74-106); POTASSIUM - SERUM 4.2 mmol/L (3.5-5.1); PROTEIN - SERUM 6.9 g/dL (6.4-8.2); SODIUM 138 mmol/L (136-145); UREA NITROGEN 23 mg/dL (7-18); eGFR NON AFRICAN AMERICAN > 90 mL/min (90-120)
--- NOTE | 2020-09-01 07:20 | NUR ---
RECIEVE REPORT. RESTING IN BED WITH EYES CLOSED. SPOUSE AT BEDSIDE. SINUS RHYTHM ON TELEMETRY. NO SIGNS OF DISTRESS. CONTINUE PLAN OF CARE AND SAFETY PRECAUTIONS.
[2020-09-01 08:00] VITALS: BP 111/69
[2020-09-01 12:00] VITALS: BP 116/76
--- NOTE | 2020-09-01 12:06 | NUR ---
VISITED WITH PATIENT AND HIS SIGNIFICANT OTHER REGARDING ACUTE REHAB. SIGNIFICANT OTHER STATED SHE WOULD SPEAK WITH PATIENT'S SON REGARDING ACUTE REHAB. OBSERVED PHYSICAL THAERPY WORKING WITH PATIENT. PATIENT WAS ABLE TO PIVOT WITH MAXIMUM ASSIST BUT FELL BACK ONTO BED WITH FIRST ATTEMPT TO STAND.- TANA BONNER LPN, CLINICAL LIAISON
--- NOTE | 2020-09-01 12:17 | NUR ---
RECEIVED PHONE CALL FROM PATIENT'S SON. SON STATED HE WANTS HIS FATHER TO GO TO SKILLED REHAB AT A PENITENTIARY CLOSE TO WHERE PATIENT LIVES. LEFT VOICE MAIL FOR LANA UREÑA RN, PARTS REMOVER STATING SON'S WISHES.-TANA BONNER LPN, CLINICAL LIAISON
--- NOTE | 2020-09-01 12:20 | NUR ---
RECEIVED PHONE CALL FROM PATIENT'S SIGNIFICANT OTHER REGARDING ACUTE REHAB. STATES PATIENT IS NOW AGREEABLE TO ACUTE REHAB. HOWEVER, DISCUSSED WITH GEOPHYSICAL LABORATORY DIRECTOR AND IS FELT PATIENT IS MORE SNF APPROPRIATE AT THIS TIME.-TANA BONNER LPN, CLINICAL LIAISON
[2020-09-01 16:00] VITALS: BP 100/68
[2020-09-01 21:31] VITALS: BP 91/60
[2020-09-02 00:15] VITALS: BP 108/68
--- NOTE | 2020-09-02 00:18 | NUR ---
PT RESTING QUIETLY. NO APPARENT DISTRESS. TOOK MEDS WITH PUDDING. PT ATE THE WHOLE CONTAINER OF PUDDING WITH OUT ISSUES.
--- NOTE | 2020-09-02 03:57 | NUR ---
LAB DRAW THRU PICC. LINE FLUSHED WITH NS. PT REMAINS ASLEEP THRU PROCEDURE.
[2020-09-02 04:46] LABS: BASOPHILS 1.1 % (0-2); EOSINOPHILS 7.7 % (0-7); HEMATOCRIT 30.5 % (42.0-54.0); HEMOGLOBIN 9.8 g/dL (13.5-17.5); LYMPHOCYTES 19.6 % (15-50); MCH 26.2 pg (26.0-34.0); MCHC 32.1 g/dL (31.0-37.0); MCV 81.8 fL (80.0-100.0); MEAN PLATELET VOLUME 8.2 fL (7.4-10.4); MONOCYTES 8.8 % (2-11); NEUTROPHILS 62.8 % (40-80); PLATELET COUNT 267 10x3/uL (130-400); RBC 3.73 10x6/uL (4.20-6.10); RDW 15.6 % (11.5-14.5); WBC 8.2 10x3/uL (4.8-10.8)
[2020-09-02 05:05] VITALS: BP 120/81
[2020-09-02 05:16] LABS: ALBUMIN 2.2 g/dL (3.4-5.0); ALKALINE PHOSPHATASE 108 U/L (30-120); ALT (SGPT) 54 U/L (10-68); CALC OSMOLALITY 279 mosm/kg (275-300); CALCIUM 7.7 mg/dL (8.5-10.1); CHLORIDE - SERUM 104 mmol/L (98-107); CREATININE - SERUM 0.5 mg/dL (0.6-1.3); GLUCOSE 104 mg/dL (74-106); POTASSIUM - SERUM 3.7 mmol/L (3.5-5.1); PROTEIN - SERUM 6.5 g/dL (6.4-8.2); SODIUM 139 mmol/L (136-145); eGFR NON AFRICAN AMERICAN > 90 mL/min (90-120)
[2020-09-02 05:25] LABS: UREA NITROGEN 17 mg/dL (7-18)
--- NOTE | 2020-09-02 05:43 | NUR ---
UNABLE TO DO DAILY WEIGHT DUE TO BED BEING BROKEN.
[2020-09-02 08:00] VITALS: BP 127/77
--- NOTE | 2020-09-02 13:18 | MORECARE ---
CASE MANAGEMENT DISCHARGE SUMMARY PATIENT: QURIINO LOPEZ UNIT: [id number] ADM DATE: 08/03/20 AGE: 65 : 53 SEX: M ROOM/BED: D.2116 AUTHOR: EJ,DOC PHYSICIAN: REFERRING PHYSICIAN: BOBBI MONSALVE DO DATE OF SERVICE: 09/02/20 Case Management Discharge Planning Summary COMMENTS ENTERED DATE: 09/02/20 13:03 CT COMMENT TYPE: Discharge Planning REVIEWER: Fanny Elliott CM spoke with Sharmin (ALLISON at [facility]), she states they are not able to accept patient due to staffing reasons. I spoke with the patient and explained that [facility] rehab and [facility] inpatient rehab is not accepting. He asks me to call Daphne Sharif (niece) at [phone] or his other niece, Veronica [facility] at [phone]. I called Daphne and had a three way phone conversation with Veronica as well. I informed them that CV surgeon has recommended SNF and read his note to them concerning this. Daphne and Veronica both state they want him to go to an inpatient rehab rather than skilled if possible. Daphne has been in the medical field and states she understands the difference between SNF and inpatient rehab. First choice is [facility] in [place] and second choice is [facility] in [place]. I have faxed clinical to [facility] in [place] and notified Magaly. I attempted to call patient's son by going through his grandson's number [phone] but did not receive an answer. CM will continue to follow and assist with discharge planning/needs. ENTERED DATE: 08/31/20 12:46 CT COMMENT TYPE: Discharge Planning REVIEWER: Fanny Elliott CM called [facility] and spoke with Sharmin about reason for denying rehab. Sharmin states that they do not have the staff to care for patient if he has not had his Covid vaccine. I asked if he had vaccine and he said no. He consents to INpatient rehab at [facility]. I attempted to call Dhiraj and her family states he is on her way here. CM will continue to follow and assist with discharge planning/needs. ENTERED DATE: 08/28/20 16:38 CT COMMENT TYPE: Discharge Planning REVIEWER: Adelaida Ward Late entry for 08/26/2020: CM [facility] at [facility] on [facility]. Faxed records as requested. Awaiting determination. 08/27/2020 CM received voice message that [facility] are not able to meet the patient's needs. Will need to have family select another SNF. ENTERED DATE: 08/25/20 16:44 CT COMMENT TYPE: Discharge Planning REVIEWER: Alvino Razo CM met with patient and family member, Dhiraj Hernandez, to complete DC plan and to evaluate needs. Patient lives independently with family. Ms Hearn stated that the patient's home is safe and has electricity and running water. Ms Hearn stated that the patient has no problems paying for medications and he fills his medications at [facility]. Ms Hearn stated that the patient's primary care is through [facility]. Ms Hearn and the patient's son, Alfred, also reached at [phone], stated that they would like to have the patient discharged to a nursing rehab closer to their home as soon as possible. Ms. Hearn stated that currently it is difficult for the family to be able to visit the patient and arrange transport for visitation. Ms. Hearn and the patient's son are also concerned that current care is not adequate. CM attempted to address the family's concerns. The family respectfully request that the patient discharge to [facility]. CM spoke with Shikha ([phone]) of [facility]. Shikha stated that she would like current clinical documents faxed to [phone] and she will call CM back. CM awaiting call back from Shikha. CM called [facility] back to inquire about decision for acceptance. Nurse Onel stated that Shikha has left for the day and CM needs to call back in the morning. Family informed of development. ELVIA signed and placed in chart. Ms. Hearn denies prior mobility problems for the patient. No DME requested. Family voiced no other needs at this time and is satisfied with DC plan. DC IMM delivered, explained, signed by the patient, and placed in chart. Signed form also left with the patient. CM will continue to follow and will assist as needed with dc plans/needs. DCP REVIEW SUMMARY ANTICIPATED D/C DATE: EXPECTED LOS : CASE STATUS: DCP Initiated INITIAL REVIEW: 08/02/2020 INITIAL REVIEWER: Alvino Razo FINAL DISCHARGE DISPOSITION: : FINAL REVIEWER: FINAL REVIEW DATE: DCP Focus Questions & Answers DCP Evaluation QUESTION: ANSWER Patient gives permission to discuss discharge plans with: (name, relationship and number) : family member, Dhiraj Hernandez, Patient's ability to cope with chronic illness : d. No chronic illness Patient's current cognitive status: : *Oriented to person, place, situation, time and present Family / Caregiver's ability to cope with chronic illness: : a. Adequate (ability to meet patient's medical needs, ensures patient attends medical appts.) Patient and/or caregiver agree upon recommended discharge plan? : Yes Physical Status: : Independent with ADL's Family / Caregiver's ability to cope with chronic illness: : a. Adequate (ability to meet patient's medical needs, ensures patient attends medical appts.) Functional screen assessment: : New onset in difficulty in gait, balance, or transfer difficulties Does the patient have the ability to pay for or attain post discharge needs / services? : Yes Living Arrangements: : Home with Extended Family Functional screen comments: : Post surgical ADL assistance Is there a likelihood that the patient will require additional services to return to the preadmission environment? : Yes Equipment needed for post hospitalization: : None Baseline cognitive status: : *Oriented to person, place, situation, time and present Patient with capacity for self-care or can be cared for in same environment as prior to hospitalization? : No Physical environment modification needed / anticipated for discharge: : No Medication Management: : Patient states can afford medications Medication Management: : Patient states can read and understand medication labels Pharmacy name(s): : [facility] Does Patient have transportation to get home and to follow-up medical appointments when discharged from the hospital? : Yes Would patient like to participate in any Care Coordination programs (if applicable): : Not applicable Does the patient have electricity at home? : Yes Does the patient have running water in their house? : Yes Equipment in use: : None Other Equipment comments: : the house has a Wheelchair, Walker, and Cane. Patient inherited these items from family. Patient does not use these items Mental health screen: : No mental health history DCP Re-evaluation QUESTION: ANSWER Would patient like to participate in any Care Coordination programs (if applicable): : Not applicable PATIENT: QUIRINO LOPEZ ENCOUNTER: [id number] MEDICAL RECORD#: [id number] ADMISSION DATE: 08/03/2020 DISCHARGE DATE: ATTENDING MD: BOBBI DE LA GARZA : AGE: 65 MARITAL STATUS: M DC PLAN ID: [id number] FACILITY: [facility] PRINTED ON: 09/02/20 13:18 CT All edits/amendments must be made on the electronic document DICTATION DATE: 09/02/201317 HOSPICE MASSAGE THERAPIST: AMY 09/02/20 1318 RPT#: [id number] DC DATE: STATUS: ADM IN [facility] [address] [place] [address] END OF REPORT
--- NOTE | 2020-09-02 13:35 | NUR ---
Nutrition Follow-up: TF has been on hold to encourage PO intake. Pt reports feeling much less full since TF stopped and is able to eat more. Diet was advanced to regular with thin liquids yesterday per BRUSH MAKER MACHINE. Pt reports some difficulty chewing 2/2 dentures now fitting looser since wt loss. Discussed with ST who changed diet to mech soft. Pt agreed to Ensure with meals. Diet: Regular, Mech Soft PO intake: 57% avg x 3 meals yesterday Wt: 180# (08/30) Labs noted: Ca 7.7, Alb 2.2 Meds noted: Pepcid -Encourage PO intake and honor food preferences within diet restrictions. -+Ensure with meals. -Need new wt. -RD follow-up: 09/04
[2020-09-02 16:00] VITALS: BP 130/85
[2020-09-02 20:50] VITALS: BP 119/81
[2020-09-03 00:23] VITALS: BP 120/76
--- NOTE | 2020-09-03 02:40 | NUR ---
PT RESTING IN BED. PT DENIES ANY NEEDS AT THE MOMENT. WILL CONT WITH POC.
--- NOTE | 2020-09-03 03:45 | NUR ---
I have reviewed this patient and I concur with the Shift Assessment completed by the Licensed Practical Nurse today this shift.
[2020-09-03 04:58] VITALS: BP 113/75
--- NOTE | 2020-09-03 05:44 | NUR ---
PT WEIGHT NOT RECORDED, BED IS NOT WORKING. NEW BED WILL BE PLACE IN PT ROOM.
[2020-09-03 06:06] LABS: BASOPHILS 2.1 % (0-2); EOSINOPHILS 6.9 % (0-7); HEMATOCRIT 30.6 % (42.0-54.0); HEMOGLOBIN 9.8 g/dL (13.5-17.5); LYMPHOCYTES 18.3 % (15-50); MCH 26.4 pg (26.0-34.0); MCHC 32.1 g/dL (31.0-37.0); MCV 82.1 fL (80.0-100.0); MEAN PLATELET VOLUME 8.1 fL (7.4-10.4); MONOCYTES 8.7 % (2-11); PLATELET COUNT 238 10x3/uL (130-400); RBC 3.73 10x6/uL (4.20-6.10); RDW 15.2 % (11.5-14.5); WBC 7.3 10x3/uL (4.8-10.8)
[2020-09-03 06:17] LABS: ALBUMIN 2.3 g/dL (3.4-5.0); ALKALINE PHOSPHATASE 108 U/L (30-120); ALT (SGPT) 42 U/L (10-68); BILIRUBIN - TOTAL 0.59 mg/dL (0.2-1.3); CALC OSMOLALITY 277 mosm/kg (275-300); CALCIUM 8.1 mg/dL (8.5-10.1); CARBON DIOXIDE 29.9 mmol/L (21.0-32.0); CHLORIDE - SERUM 103 mmol/L (98-107); CREATININE - SERUM 0.6 mg/dL (0.6-1.3); GLUCOSE 112 mg/dL (74-106); POTASSIUM - SERUM 3.8 mmol/L (3.5-5.1); PROTEIN - SERUM 6.6 g/dL (6.4-8.2); SODIUM 138 mmol/L (136-145); UREA NITROGEN 15 mg/dL (7-18); eGFR NON AFRICAN AMERICAN > 90 mL/min (90-120)
[2020-09-03 08:09] VITALS: BP 121/76
--- NOTE | 2020-09-03 08:24 | MORECARE ---
CASE MANAGEMENT DISCHARGE SUMMARY PATIENT: QUIRINO LOPEZ UNIT: [id number] ADM DATE: 08/03/20 AGE: 65 : 51 SEX: M ROOM/BED: D.2116 AUTHOR: EJ,DOC PHYSICIAN: REFERRING PHYSICIAN: BOBBI MONSALVE DO DATE OF SERVICE: 09/03/20 Case Management Discharge Planning Summary COMMENTS ENTERED DATE: 09/03/20 8:19 CT COMMENT TYPE: Discharge Planning REVIEWER: Fanny Elliott Updated clinical faxed to [facility]. ENTERED DATE: 09/02/20 13:03 CT COMMENT TYPE: Discharge Planning REVIEWER: Fanny Elliott CM spoke with Sharmin (DON at [facility]), she states they are not able to accept patient due to staffing reasons. I spoke with the patient and explained that [facility] and [facility] inpatient rehab is not accepting. He asks me to call Daphne Kole (niece) at [phone] or his other niece, Veronica Ortega at [phone]. I called Daphne and had a three way phone conversation with Veronica as well. I informed them that CV surgeon has recommended SNF and read his note to them concerning this. Daphne and Veronica both state they want him to go to an inpatient rehab rather than skilled if possible. Daphne has been in the medical field and states she understands the difference between SNF and inpatient rehab. First choice is [facility] in [place] and second choice is [facility] in [place]. I have faxed clinical to [facility] in [place] and notified Magaly. I attempted to call patient's son by going through his grandson's number [phone] but did not receive an answer. CM will continue to follow and assist with discharge planning/needs. ENTERED DATE: 08/31/20 12:46 CT COMMENT TYPE: Discharge Planning REVIEWER: Fanny Elliott CM called [facility] and spoke with Sharmin about reason for denying rehab. Sharmin states that they do not have the staff to care for patient if he has not had his Covid vaccine. I asked if he had vaccine and he said no. He consents to INpatient rehab at [facility]. I attempted to call Dhiraj and her family states he is on her way here. CM will continue to follow and assist with discharge planning/needs. ENTERED DATE: 08/28/20 16:38 CT COMMENT TYPE: Discharge Planning REVIEWER: Adelaida Ward Late entry for 08/26/2020: CM followed up with Mohit at [facility] on referral. Faxed records as requested. Awaiting determination. 08/27/2020 CM received voice message that [facility] are not able to meet the patient's needs. Will need to have family select another SNF. ENTERED DATE: 08/25/20 16:44 CT COMMENT TYPE: Discharge Planning REVIEWER: Alvino Razo CM met with patient and family member, Dhiraj Hernandez, to complete DC plan and to evaluate needs. Patient lives independently with family. Ms Hearn stated that the patient's home is safe and has electricity and running water. Ms Hearn stated that the patient has no problems paying for medications and he fills his medications at [facility]. Ms Hearn stated that the patient's primary care is through [facility]. Ms Hearn and the patient's son, Alfred, also reached at [phone], stated that they would like to have the patient discharged to a nursing rehab closer to their home as soon as possible. Ms. Hearn stated that currently it is difficult for the family to be able to visit the patient and arrange transport for visitation. Ms. Hearn and the patient's son are also concerned that current care is not adequate. CM attempted to address the family's concerns. The family respectfully request that the patient discharge to [facility]. CM spoke with Shikha ([phone]) of [facility]. Shikha stated that she would like current clinical documents faxed to [phone] and she will call CM back. CM awaiting call back from Shikha. CM called [facility] back to inquire about decision for acceptance. Nurse Onel stated that Shikha has left for the day and CM needs to call back in the morning. Family informed of development. ELVIA signed and placed in chart. Ms. Hearn denies prior mobility problems for the patient. No DME requested. Family voiced no other needs at this time and is satisfied with DC plan. DC IMM delivered, explained, signed by the patient, and placed in chart. Signed form also left with the patient. CM will continue to follow and will assist as needed with dc plans/needs. DCP REVIEW SUMMARY ANTICIPATED D/C DATE: EXPECTED LOS : CASE STATUS: DCP Initiated INITIAL REVIEW: 08/02/2020 INITIAL REVIEWER: Alvino Razo FINAL DISCHARGE DISPOSITION: : FINAL REVIEWER: FINAL REVIEW DATE: DCP Focus Questions & Answers DCP Evaluation QUESTION: ANSWER Patient and/or caregiver agree upon recommended discharge plan? : Yes Family / Caregiver's ability to cope with chronic illness: : a. Adequate (ability to meet patient's medical needs, ensures patient attends medical appts.) Patient's current cognitive status: : *Oriented to person, place, situation, time and present Patient's ability to cope with chronic illness : d. No chronic illness Patient gives permission to discuss discharge plans with: (name, relationship and number) : family member, Dhiraj Hernandez, Does the patient have the ability to pay for or attain post discharge needs / services? : Yes Functional screen assessment: : New onset in difficulty in gait, balance, or transfer difficulties Family / Caregiver's ability to cope with chronic illness: : a. Adequate (ability to meet patient's medical needs, ensures patient attends medical appts.) Physical Status: : Independent with ADL's Equipment needed for post hospitalization: : None Is there a likelihood that the patient will require additional services to return to the preadmission environment? : Yes Functional screen comments: : Post surgical ADL assistance Living Arrangements: : Home with Extended Family Patient with capacity for self-care or can be cared for in same environment as prior to hospitalization? : No Baseline cognitive status: : *Oriented to person, place, situation, time and present Physical environment modification needed / anticipated for discharge: : No Medication Management: : Patient states can read and understand medication labels Medication Management: : Patient states can afford medications Pharmacy name(s): : [facility] Does Patient have transportation to get home and to follow-up medical appointments when discharged from the hospital? : Yes Would patient like to participate in any Care Coordination programs (if applicable): : Not applicable Does the patient have electricity at home? : Yes Does the patient have running water in their house? : Yes Equipment in use: : None Other Equipment comments: : the house has a Wheelchair, Walker, and Cane. Patient inherited these items from family. Patient does not use these items Mental health screen: : No mental health history DCP Re-evaluation QUESTION: ANSWER Would patient like to participate in any Care Coordination programs (if applicable): : Not applicable PATIENT: QUIRINO LOPEZ ENCOUNTER: [id number] MEDICAL RECORD#: [id number] ADMISSION DATE: 08/03/2020 DISCHARGE DATE: ATTENDING MD: BOBBI DE LA GARZA : AGE: 65 MARITAL STATUS: M DC PLAN ID: [id number] FACILITY: [facility] PRINTED ON: 09/03/20 8:24 CT All edits/amendments must be made on the electronic document DICTATION DATE: 09/03/20823 TITLE COORDINATOR: AMY 09/03/20823 RPT#: [id number] DC DATE: STATUS: ADM IN [facility] [address] [place] [address] END OF REPORT
--- NOTE | 2020-09-03 10:47 | NUR ---
PRN PAIN MEDS GIVEN TO PATIENT FOR ARTHRITIS PAIN.
[2020-09-03 11:00] VITALS: BP 115/76
[2020-09-03] MEDS ORDERED: COREG6.25 MG NG (11:40)
[2020-09-03] MEDS ORDERED: HYDRALAZINE20 MG/ML IV (11:40)
[2020-09-03] MEDS ORDERED: COZAAR25 MG NG (11:40)
[2020-09-03] MEDS ORDERED: TYLENOL W/CODEI1 TAB PO (11:40)
[2020-09-03] MEDS ORDERED: ASPIRIN81 MG PO (11:40)
[2020-09-03] MEDS ORDERED: PEPCID PO (11:41)
[2020-09-03] MEDS ORDERED: COLACE100 MG PT (11:41)
[2020-09-03] MEDS ORDERED: BETADINE OINTMENT TP (11:41)
[2020-09-03] MEDS ORDERED: Potassium Cl oral po NG (11:41)
[2020-09-03] MEDS ORDERED: ROBITUSSIN DM 110 ML PO (11:41)
[2020-09-03] MEDS ORDERED: MELATONIN 3 MG1 TAB PO (11:41)
[2020-09-03] MEDS ORDERED: IBUPROFEN800 MG PO (11:41)
[2020-09-03] MEDS ORDERED: Saline Mist NASAL SP NASAL (11:41)
--- NOTE | 2020-09-03 12:14 | MORECARE ---
CASE MANAGEMENT DISCHARGE SUMMARY PATIENT: QUIRINO LOPEZ UNIT: [id number] ADM DATE: 08/03/20 AGE: 65 : 51 SEX: M ROOM/BED: D.2116 AUTHOR: EJ,DOC PHYSICIAN: REFERRING PHYSICIAN: BOBBI MONSALVE DO DATE OF SERVICE: 09/03/20 Case Management Discharge Planning Summary COMMENTS ENTERED DATE: 09/03/20 12:02 CT COMMENT TYPE: Discharge Planning REVIEWER: Fanny Mckenzie called with acceptance to [facility]. She will call back with shrimp picker time. Ruthann Nunez informed. I faxed DC orders/MAR/med list. Dhiraj in the room and informed. I called Daphne and informed and Daphne states she has notified the rest of the family including son, Onel. DC today to [facility] inpatient rehab in [place]. ENTERED DATE: 09/03/20 8:19 CT COMMENT TYPE: Discharge Planning REVIEWER: Fanny Elliott Updated clinical faxed to [facility]. ENTERED DATE: 09/02/20 13:03 CT COMMENT TYPE: Discharge Planning REVIEWER: Fanny Elliott CM spoke with Sharmin MATOS at [facility]), she states they are not able to accept patient due to staffing reasons. I spoke with the patient and explained that [facility] and [facility] inpatient rehab is not accepting. He asks me to call Daphne Sharif (niece) at [phone] or his other niece, Veronica Ortega at [phone]. I called Daphne and had a three way phone conversation with Veronica as well. I informed them that CV surgeon has recommended SNF and read his note to them concerning this. Daphne and Veronica both state they want him to go to an inpatient rehab rather than skilled if possible. Daphne has been in the medical field and states she understands the difference between SNF and inpatient rehab. First choice is [facility] in [place] and second choice is [facility] in [place]. I have faxed clinical to [facility] in [place] and notified Magaly. I attempted to call patient's son by going through his grandson's number [phone] but did not receive an answer. CM will continue to follow and assist with discharge planning/needs. ENTERED DATE: 08/31/20 12:46 CT COMMENT TYPE: Discharge Planning REVIEWER: Fanny Elliott CM called [facility] and spoke with Sharmin about reason for denying rehab. Sharmin states that they do not have the staff to care for patient if he has not had his Covid vaccine. I asked if he had vaccine and he said no. He consents to INpatient rehab at [facility]. I attempted to call Dhiraj and her family states he is on her way here. CM will continue to follow and assist with discharge planning/needs. ENTERED DATE: 08/28/20 16:38 CT COMMENT TYPE: Discharge Planning REVIEWER: Adelaida Ward Late entry for 08/26/2020: CM followed up with Mohit at [facility] on referral. Faxed records as requested. Awaiting determination. 08/27/2020 CM received voice message that [facility] are not able to meet the patient's needs. Will need to have family select another SNF. ENTERED DATE: 08/25/20 16:44 CT COMMENT TYPE: Discharge Planning REVIEWER: Alvino Razo CM met with patient and family member, Dhiraj Hernandez, to complete DC plan and to evaluate needs. Patient lives independently with family. Ms Hearn stated that the patient's home is safe and has electricity and running water. Ms Hearn stated that the patient has no problems paying for medications and he fills his medications at [facility]. Ms Hearn stated that the patient's primary care is through [facility]. Ms Hearn and the patient's son, Alfred, also reached at [phone], stated that they would like to have the patient discharged to a nursing rehab closer to their home as soon as possible. Ms. Hearn stated that currently it is difficult for the family to be able to visit the patient and arrange transport for visitation. Ms. Hearn and the patient's son are also concerned that current care is not adequate. CM attempted to address the family's concerns. The family respectfully request that the patient discharge to [facility]. CM spoke with Shikha ([phone]) of [facility]. Shikha stated that she would like current clinical documents faxed to [phone] and she will call CM back. CM awaiting call back from Shikha. CM called [facility] back to inquire about decision for acceptance. Nurse Sykes stated that Shikha has left for the day and CM needs to call back in the morning. Family informed of development. ELVIA signed and placed in chart. Ms. Hearn denies prior mobility problems for the patient. No DME requested. Family voiced no other needs at this time and is satisfied with DC plan. DC IMM delivered, explained, signed by the patient, and placed in chart. Signed form also left with the patient. CM will continue to follow and will assist as needed with dc plans/needs. DCP REVIEW SUMMARY ANTICIPATED D/C DATE: EXPECTED LOS : CASE STATUS: DCP Initiated INITIAL REVIEW: 08/02/2020 INITIAL REVIEWER: Alvino Razo FINAL DISCHARGE DISPOSITION: : FINAL REVIEWER: FINAL REVIEW DATE: DCP Focus Questions & Answers DCP Evaluation QUESTION: ANSWER Patient and/or caregiver agree upon recommended discharge plan? : Yes Family / Caregiver's ability to cope with chronic illness: : a. Adequate (ability to meet patient's medical needs, ensures patient attends medical appts.) Patient's current cognitive status: : *Oriented to person, place, situation, time and present Patient's ability to cope with chronic illness : d. No chronic illness Patient gives permission to discuss discharge plans with: (name, relationship and number) : family member, Dhiraj Hernandez, Does the patient have the ability to pay for or attain post discharge needs / services? : Yes Functional screen assessment: : New onset in difficulty in gait, balance, or transfer difficulties Family / Caregiver's ability to cope with chronic illness: : a. Adequate (ability to meet patient's medical needs, ensures patient attends medical appts.) Physical Status: : Independent with ADL's Equipment needed for post hospitalization: : None Is there a likelihood that the patient will require additional services to return to the preadmission environment? : Yes Functional screen comments: : Post surgical ADL assistance Living Arrangements: : Home with Extended Family Patient with capacity for self-care or can be cared for in same environment as prior to hospitalization? : No Baseline cognitive status: : *Oriented to person, place, situation, time and present Physical environment modification needed / anticipated for discharge: : No Medication Management: : Patient states can read and understand medication labels Medication Management: : Patient states can afford medications Pharmacy name(s): : [facility] Does Patient have transportation to get home and to follow-up medical appointments when discharged from the hospital? : Yes Would patient like to participate in any Care Coordination programs (if applicable): : Not applicable Does the patient have electricity at home? : Yes Does the patient have running water in their house? : Yes Equipment in use: : None Other Equipment comments: : the house has a Wheelchair, Walker, and Cane. Patient inherited these items from family. Patient does not use these items Mental health screen: : No mental health history DCP Re-evaluation QUESTION: ANSWER Would patient like to participate in any Care Coordination programs (if applicable): : Not applicable PATIENT: QUIRINO LOPEZ ENCOUNTER: [id number] MEDICAL RECORD#: [id number] ADMISSION DATE: 08/03/2020 DISCHARGE DATE: ATTENDING MD: BOBBI DE LA GARZA : AGE: 65 MARITAL STATUS: M DC PLAN ID: [id number] FACILITY: [facility] PRINTED ON: 09/03/20 12:14 CT All edits/amendments must be made on the electronic document DICTATION DATE: 09/03/201213 BILL PEDDLER: AMY 09/03/201213 RPT#: [id number] DC DATE: STATUS: ADM IN [facility] [address] [place] [address] END OF REPORT
--- NOTE | 2020-09-03 14:31 | NUR ---
REPORT GIVEN TO [facility] FOR PATIENT AT THIS TIME.
--- NOTE | 2020-09-03 14:53 | NUR ---
NURSE HELPS GET PATIENT INTO WHEELCHAIR FOR PATIENT TO LEAVE FOR FACILITY.
[2020-09-03 18:08] LABS: FUNGUS MYCOLOGY CULTURE Final report (())
--- NOTE | 2020-09-04 08:12 | MORECARE ---
CASE MANAGEMENT DISCHARGE SUMMARY PATIENT: QUIRINO LOPEZ UNIT: [id number] ADM DATE: 08/03/20 AGE: 65 : 51 SEX: M ROOM/BED: D.2116 AUTHOR: EJ,DOC PHYSICIAN: REFERRING PHYSICIAN: BOBBI MONSALVE DO DATE OF SERVICE: 09/04/20 Case Management Discharge Planning Summary COMMENTS ENTERED DATE: 09/03/20 12:02 CT COMMENT TYPE: Discharge Planning REVIEWER: Fanny Mckenzie called with acceptance to [facility]. She will call back with molded goods spot picker time. Ruthann Nunez informed. I faxed DC orders/MAR/med list. Dhiraj in the room and informed. I called Daphne and informed and Daphne states she has notified the rest of the family including son, Onel. DC today to [facility] inpatient rehab in [place]. ENTERED DATE: 09/03/20 8:19 CT COMMENT TYPE: Discharge Planning REVIEWER: Fanny Elliott Updated clinical faxed to [facility]. ENTERED DATE: 09/02/20 13:03 CT COMMENT TYPE: Discharge Planning REVIEWER: Fanny Elliott CM spoke with Sharmin MATOS at [facility]), she states they are not able to accept patient due to staffing reasons. I spoke with the patient and explained that [facility] and [facility] inpatient rehab is not accepting. He asks me to call Daphne Sharif (niece) at [phone] or his other niece, Veronica Ortega at [phone]. I called Daphne and had a three way phone conversation with Veronica as well. I informed them that CV surgeon has recommended SNF and read his note to them concerning this. Daphne and Veronica both state they want him to go to an inpatient rehab rather than skilled if possible. Daphne has been in the medical field and states she understands the difference between SNF and inpatient rehab. First choice is [facility] in [place] and second choice is [facility] in [place]. I have faxed clinical to [facility] in [place] and notified Magaly. I attempted to call patient's son by going through his grandson's number [phone] but did not receive an answer. CM will continue to follow and assist with discharge planning/needs. ENTERED DATE: 08/31/20 12:46 CT COMMENT TYPE: Discharge Planning REVIEWER: Fanny Elliott CM called [facility] and spoke with Sharmin about reason for denying rehab. Sharmin states that they do not have the staff to care for patient if he has not had his Covid vaccine. I asked if he had vaccine and he said no. He consents to INpatient rehab at [facility]. I attempted to call Dhiraj and her family states he is on her way here. CM will continue to follow and assist with discharge planning/needs. ENTERED DATE: 08/28/20 16:38 CT COMMENT TYPE: Discharge Planning REVIEWER: Adelaida Ward Late entry for 08/26/2020: CM followed up with Mohit at [facility] on referral. Faxed records as requested. Awaiting determination. 08/27/2020 CM received voice message that [facility] are not able to meet the patient's needs. Will need to have family select another SNF. ENTERED DATE: 08/25/20 16:44 CT COMMENT TYPE: Discharge Planning REVIEWER: Alvino Razo CM met with patient and family member, Dhiraj Hernandez, to complete DC plan and to evaluate needs. Patient lives independently with family. Ms Hearn stated that the patient's home is safe and has electricity and running water. Ms Hearn stated that the patient has no problems paying for medications and he fills his medications at [facility]. Ms Hearn stated that the patient's primary care is through [facility]. Ms Hearn and the patient's son, Alfred, also reached at [phone], stated that they would like to have the patient discharged to a nursing rehab closer to their home as soon as possible. Ms. Hearn stated that currently it is difficult for the family to be able to visit the patient and arrange transport for visitation. Ms. Hearn and the patient's son are also concerned that current care is not adequate. CM attempted to address the family's concerns. The family respectfully request that the patient discharge to [facility]. CM spoke with Shikha ([phone]) of [facility]. Shikha stated that she would like current clinical documents faxed to [phone] and she will call CM back. CM awaiting call back from Shikha. CM called [facility] back to inquire about decision for acceptance. Nurse Sykes stated that Shikha has left for the day and CM needs to call back in the morning. Family informed of development. ELVIA signed and placed in chart. Ms. Hearn denies prior mobility problems for the patient. No DME requested. Family voiced no other needs at this time and is satisfied with DC plan. DC IMM delivered, explained, signed by the patient, and placed in chart. Signed form also left with the patient. CM will continue to follow and will assist as needed with dc plans/needs. DCP REVIEW SUMMARY ANTICIPATED D/C DATE: EXPECTED LOS : CASE STATUS: DCP Initiated INITIAL REVIEW: 08/02/2020 INITIAL REVIEWER: Alvino Razo FINAL DISCHARGE DISPOSITION: : FINAL REVIEWER: FINAL REVIEW DATE: DCP Focus Questions & Answers DCP Evaluation QUESTION: ANSWER Patient and/or caregiver agree upon recommended discharge plan? : Yes Family / Caregiver's ability to cope with chronic illness: : a. Adequate (ability to meet patient's medical needs, ensures patient attends medical appts.) Patient's current cognitive status: : *Oriented to person, place, situation, time and present Patient's ability to cope with chronic illness : d. No chronic illness Patient gives permission to discuss discharge plans with: (name, relationship and number) : family member, Dhiraj Hernandez, Does the patient have the ability to pay for or attain post discharge needs / services? : Yes Functional screen assessment: : New onset in difficulty in gait, balance, or transfer difficulties Family / Caregiver's ability to cope with chronic illness: : a. Adequate (ability to meet patient's medical needs, ensures patient attends medical appts.) Physical Status: : Independent with ADL's Equipment needed for post hospitalization: : None Is there a likelihood that the patient will require additional services to return to the preadmission environment? : Yes Functional screen comments: : Post surgical ADL assistance Living Arrangements: : Home with Extended Family Patient with capacity for self-care or can be cared for in same environment as prior to hospitalization? : No Baseline cognitive status: : *Oriented to person, place, situation, time and present Physical environment modification needed / anticipated for discharge: : No Medication Management: : Patient states can read and understand medication labels Medication Management: : Patient states can afford medications Pharmacy name(s): : [facility] Does Patient have transportation to get home and to follow-up medical appointments when discharged from the hospital? : Yes Would patient like to participate in any Care Coordination programs (if applicable): : Not applicable Does the patient have electricity at home? : Yes Does the patient have running water in their house? : Yes Equipment in use: : None Other Equipment comments: : the house has a Wheelchair, Walker, and Cane. Patient inherited these items from family. Patient does not use these items Mental health screen: : No mental health history DCP Re-evaluation QUESTION: ANSWER Would patient like to participate in any Care Coordination programs (if applicable): : Not applicable PATIENT: QUIRINO LOPEZ ENCOUNTER: [id number] MEDICAL RECORD#: [id number] ADMISSION DATE: 08/03/2020 DISCHARGE DATE: 09/03/2020 ATTENDING MD: BOBBI DE LA GARZA : AGE: 65 MARITAL STATUS: M DC PLAN ID: [id number] FACILITY: [facility] PRINTED ON: 09/04/20 8:12 CT All edits/amendments must be made on the electronic document DICTATION DATE: 09/04/20811 CONDUCTOR SYMPHONIC ORCHESTRA: AMY 09/04/20811 RPT#: [id number] DC DATE:09/03/20 STATUS: DIS IN [facility] [address] [place] [address] END OF REPORT
== END 2020-09-03 14:53 | DRG 216 ==
LOC: D.ER 05:09 → OBSVTIME 07:29 → D.M2 07:29 → D.CVICU 08-03 17:05 → D.M2 08-03 17:05 → D.CVICU 08-04 12:55 → D.M2 08-28 14:28
PROVIDERS: Emergency Medicine; Family Medicine; Family Medicine Adult Medicine; Internal Medicine Interventional Cardiology; Internal Medicine Pulmonary Disease; Student in an Organized Health Care Education/Training Program; Thoracic Surgery (Cardiothoracic Vascular Surgery); ADMIT Family Medicine; ATTEND Family Medicine
PROC: B2111ZZ Fluoroscopy of Multiple Coronary Arteries using Low Osmolar Contrast (ICD-10-PCS; 2020-08-03)
PROC: 5A1221Z Performance of Cardiac Output, Continuous (ICD-10-PCS; 2020-08-03)
PROC: B2151ZZ Fluoroscopy of Left Heart using Low Osmolar Contrast (ICD-10-PCS; 2020-08-03)
PROC: 4A023N7 Measurement of Cardiac Sampling and Pressure, Left Heart, Percutaneous Approach (ICD-10-PCS; 2020-08-03)
PROC: 5A1955Z Respiratory Ventilation, Greater than 96 Consecutive Hours (ICD-10-PCS; 2020-08-03)
PROC: 021009W Bypass Coronary Artery, One Artery from Aorta with Autologous Venous Tissue, Open Approach (ICD-10-PCS; 2020-08-04)
PROC: 02100Z9 Bypass Coronary Artery, One Artery from Left Internal Mammary, Open Approach (ICD-10-PCS; 2020-08-04)
PROC: 02L70CK Occlusion of Left Atrial Appendage with Extraluminal Device, Open Approach (ICD-10-PCS; 2020-08-04)
PROC: 02RF0JZ Replacement of Aortic Valve with Synthetic Substitute, Open Approach (ICD-10-PCS; principal; 2020-08-04 07:30)
PROC: 04Q00ZZ Repair Abdominal Aorta, Open Approach (ICD-10-PCS; 2020-08-04 07:30)
PROC: 05H633Z Insertion of Infusion Device into Left Subclavian Vein, Percutaneous Approach (ICD-10-PCS; 2020-08-10)
PROC: 0DH63UZ Insertion of Feeding Device into Stomach, Percutaneous Approach (ICD-10-PCS; 2020-08-20)
PROC: 0B9M8ZZ Drainage of Bilateral Lungs, Via Natural or Artificial Opening Endoscopic (ICD-10-PCS; 2020-08-20)
PROC: 05HY33Z Insertion of Infusion Device into Upper Vein, Percutaneous Approach (ICD-10-PCS; 2020-08-21)
DX: I35.1 Nonrheumatic aortic (valve) insufficiency (principal); I21.A1 Myocardial infarction type 2; J96.01 Acute respiratory failure with hypoxia; J15.5 Pneumonia due to Escherichia coli; G93.41 Metabolic encephalopathy; Q25.43 Congenital aneurysm of aorta; I42.0 Dilated cardiomyopathy; I50.20 Unspecified systolic (congestive) heart failure; D62 Acute posthemorrhagic anemia; E87.0 Hyperosmolality and hypernatremia; J43.9 Emphysema, unspecified; I48.91 Unspecified atrial fibrillation; E78.5 Hyperlipidemia, unspecified; I25.10 Atherosclerotic heart disease of native coronary artery without angina pectoris; K21.9 Gastro-esophageal reflux disease without esophagitis; I11.0 Hypertensive heart disease with heart failure; E88.09 Other disorders of plasma-protein metabolism, not elsewhere classified; R04.0 Epistaxis